=== PATIENT | female | born 1955 | race Caucasian/White ===

== ENCOUNTER 2018-01-29 02:33 | Observation (INO) | payer MEDICARE, OTHER ==
[2018-01-29] MEDS ORDERED: ASPIRIN 81 MG PO STA (02:40)
[2018-01-29] MEDS ORDERED: SODIUM CHLORIDE 0.9% 1,000 ML IV STA (02:40)
[2018-01-29] MEDS ORDERED: ONDANSETRON 4 MG/2 ML VIAL IVP STA (02:40)
[2018-01-29] MEDS ORDERED: NITROGLYCERIN OINT 1 INCH/GM PACKET TOPICAL STA (02:40)
[2018-01-29 03:13] LABS: Basophils % (A) 0 %; Eosinophils # (A) 0.4 k/uL (0-0.7); Eosinophils % (A) 4 %; HCT 42.3 % (34.0-46.0); HGB 13.9 gm/dL (11.4-16.0); Lymphocytes % (A) 23 %; MCH 29.6 pg (25.0-35.0); MCHC 32.9 g/dL (31.0-37.0); MCV 89.7 fL (80.0-100.0); Monocytes # (A) 0.6 k/uL (0-1.0); Monocytes % (A) 6 %; Neutrophils # (A) 5.7 k/uL (1.3-7.7); Neutrophils % (A) 64 %; Platelet Count 153 k/uL (150-450); RBC 4.71 m/uL (3.80-5.40); RDW 13.8 % (11.5-15.5); WBC 8.9 k/uL (3.8-10.6)
--- NOTE | 2018-01-29 03:27 | ED ---
Chest Pain HPI - General Chief Complaint: Chest Pain Stated Complaint: chest pain Time Seen by Provider: 01/29/18 02:35 Source: patient Mode of arrival: EMS Limitations: no limitations - History of Present Illness Initial Comments: 62 years old female presenting with a chest pressure for last 24 hours she is also complaining about she is short-winded and no chest pain gets worse with deep breaths, denies any fever no chills she is not coughing up a bunch of phlegm denies any history of heart disease or any stents stents in place in the past. Denies any headaches no neck stiffness no fever mom has a chest pressure no abdominal pain no frequency or dysuria dysuria no symptoms of TIA or CVA - Related Data Home Medications Medication Instructions Recorded Confirmed ARIPiprazole [Abilify] 5 mg PO HS 01/29/18 01/29/18 Aspirin EC [Ecotrin Low Dose] 81 mg PO DAILY 01/29/18 01/29/18 Cetirizine HCl [Cetirizine HCl] 10 mg PO DAILY 01/29/18 01/29/18 Cyanocobalamin (Vitamin B-12) 1,000 mcg PO DAILY 01/29/18 01/29/18 [Vitamin B-12] Ferrous Sulfate [Iron] 325 mg PO DAILY 01/29/18 01/29/18 Furosemide [Lasix] 20 mg PO TID 01/29/18 01/29/18 Levothyroxine Sodium 88 mcg PO DAILY 01/29/18 01/29/18 Lisinopril [Zestril] 5 mg PO DAILY 01/29/18 01/29/18 Ranitidine HCl 150 mg PO BID 01/29/18 01/29/18 fluvoxaMINE MALEATE [Fluvoxamine 100 mg PO BID 01/29/18 01/29/18 Maleate] metFORMIN HCL [Glucophage] 500 mg PO BID 01/29/18 01/29/18 Allergies Allergy/AdvReac Type Severity Reaction Status Date / Time clindamycin Allergy Rash/Hives Verified 01/29/18 03:07 nickel AdvReac Rash/Hives Verified 01/29/18 03:08 propoxyphene [From Darvon] AdvReac Unknown Verified 01/29/18 03:08 amprin AdvReac Unknown Uncoded 01/29/18 03:09 Review of Systems ROS Statement: Those systems with pertinent positive or pertinent negative responses have been documented in the HPI. ROS Other: All systems not noted in ROS Statement are negative. Past Medical History Past Medical History: No Reported History History of Any Multi-Drug Resistant Organisms: None Reported Past Surgical History: Cholecystectomy, Orthopedic Surgery, Tonsillectomy Additional Past Surgical History / Comment(s): bilat wrist surgery, bilat knee surgery Past Psychological History: No Psychological Hx Reported Smoking Status: Former smoker Past Alcohol Use History: None Reported Past Drug Use History: None Reported General Exam - General Exam Comments Initial Comments: General: The patient is awake and alert, in no distress, and does not appear acutely ill. Skin: Skin is warm and dry and no rashes or lesions are noted. Eye: Pupils are equal, round and reactive to light, extra-ocular movements are intact; there is normal conjunctiva bilaterally. Ears, nose, mouth and throat: There are moist mucous membranes and no oral lesions. Neck: The neck is supple, there is no tenderness or JVD. Cardiovascular: There is a regular rate and rhythm. No murmur, rub or gallop is appreciated. Respiratory: To auscultation bilateral, no wheezing no rhonchi no distress respiratory orta noticed Gastrointestinal: Soft, non-distended, non-tender abdomen without masses or organomegaly noted. There is no rebound or guarding present. Bowel sounds are unremarkable. Back: There is no tenderness to palpation in the midline. There is no obvious deformity. Musculoskeletal: Normal ROM, no tenderness, There is no pedal edema. There is no calf tenderness or swelling. No cords were appreciated. Neurological: CN II-XII intact, Cranial nerves III through XII are intact. There are no obvious motor or sensory deficits. Coordination appears grossly intact. Speech is normal. Psychiatric: Cooperative, appropriate mood & affect, normal judgment. Limitations: no limitations Course Vital Signs 01/29/18 02:35 Temperature 97.5 F L Pulse Rate 79 Respiratory 18 Rate Blood Pressure 123/71 O2 Sat by Pulse 98 Oximetry EKG is sinus rhythm with a premature atrial complexes ventricular rate is 88, PA interval is 180 QRS duration is 82 QT/QTC 364/440 and 50 mL EKG does not reveal any ST elevation or ST depression She is reassessed at term 4 AM, noticed CBC is unremarkable creatinine is bit elevated 1.20 troponin chest x-ray are reviewed chest x-ray reveals some cardiomegaly d-dimer is quite elevated this is a candidate for CT angiogram considering her creatinine is 1.20 chest pressure is still persisting abdomen quiet and hospitalize her will do a VQ scan and patient would have Dr. Umana is her cover seamer will consult him all go ahead and heparinize her and said she still has chest pressure, she agrees with the hospital or admission plan Disposition Clinical Impression: Chest pressure, Elevated d-dimer, Renal insufficiency Disposition: ADMITTED IP TO THIS HOSP Condition: Good Referrals: Nonstaff,Physician [Primary Care Provider] - 1-2 days
[2018-01-29 03:28] LABS: Albumin 4.1 g/dL (3.5-5.0); Calcium 9.9 mg/dL (8.4-10.2); Total Bilirubin 0.5 mg/dL (0.2-1.3); Total Protein 7.8 g/dL (6.3-8.2)
[2018-01-29 03:32] LABS: Creatine Kinase 84 U/L (30-135); Potassium 4.3 mmol/L (3.5-5.1)
[2018-01-29 03:39] LABS: D-Dimer 1.54 mg/L FEU (<0.60); Partial Thromboplastin Time 18.6 sec (22.0-30.0); Prothrombin Time 9.9 sec (9.0-12.0)
[2018-01-29 03:45] LABS: Creatine Kinase MB 0.5 ng/mL (0.0-2.4); Troponin I <0.012 ng/mL (0.000-0.034)
--- NOTE | 2018-01-29 03:53 | XR ---
EXAM: XR Chest, 2 Views CLINICAL HISTORY: Chest Pain TECHNIQUE: Frontal and lateral views of the chest. COMPARISON: February 24, 2013. FINDINGS: Prominent cardiac silhouette no evidence of failure or edema. No lung volumes. No focal consolidative process or pleural effusions. Degenerative changes in thoracic spine. IMPRESSION: Enlarged cardiac silhouette without evidence of failure or edema. No focal consolidative process.
[2018-01-29] MEDS ORDERED: MORPHINE SULFATE 4 MG/ML SYRINGE IV PRN (04:40)
[2018-01-29] MEDS ORDERED: HEPARIN SODIUM,PORCINE 5,000 UNIT/ML 1 ML VIAL IV ONE (04:40)
[2018-01-29] MEDS ORDERED: NITROGLYCERIN SL TABS 0.4 MG TAB SUBLINGUAL PRN (04:40)
[2018-01-29] MEDS ORDERED: HEPARIN SOD,PORK IN 0.45% NACL 25,000 UNIT in 0.45% NACL 1 500ML.BAG IV SCH (04:45)
[2018-01-29] MEDS: ASPIRIN 81 MG PO SCH (08:57)
[2018-01-29] MEDS: FERROUS SULFATE 325 MG TAB PO SCH (08:57)
[2018-01-29] MEDS: CYANOCOBALAMIN 500 MCG TAB PO SCH (08:57)
[2018-01-29] MEDS: LEVOTHYROXINE 88 MCG TAB PO SCH (08:57)
[2018-01-29] MEDS: metFORMIN 500 MG TAB PO SCH ×2 (08:57→20:48)
[2018-01-29] MEDS: FUROSEMIDE 20 MG TAB PO SCH ×2 (08:57→18:23)
[2018-01-29] MEDS: LISINOPRIL 5 MG TAB PO SCH (08:58)
[2018-01-29] MEDS: LORATADINE 10 MG TAB PO SCH (08:58)
[2018-01-29] MEDS ORDERED: FAMOTIDINE 20 MG TAB PO SCH (09:00)
[2018-01-29 11:09] LABS: Creatine Kinase 70 U/L (30-135)
[2018-01-29 11:21] LABS: Creatine Kinase MB 0.6 ng/mL (0.0-2.4); Troponin I <0.012 ng/mL (0.000-0.034)
--- NOTE | 2018-01-29 11:47 | NM ---
EXAMINATION TYPE: NM pul vent and perfuse DATE OF EXAM: 01/29/2018 COMPARISON: Chest x-ray 01/29/2018 HISTORY: Chest pain TECHNIQUE: Utilizing inhalation of 67.1 mCi Tc 99m DTPA aerosol and intravenous injection of 5.08 mC i of Tc 99m MAA, ventilation and perfusion images are acquired post injection in multiple projections . FINDINGS: There is a tiny matched defect within the left lung. No mismatch defects seen. IMPRESSION: Low probability for pulmonary embolism. Correlate with CTA as clinically warranted.
[2018-01-29] MEDS ORDERED: HEPARIN SODIUM,PORCINE 5,000 UNIT/ML 1 ML VIAL IV STA (14:23)
[2018-01-29] MEDS ORDERED: MAG HYDROX/AL HYDROX/SIMETH 30 ML CUP PO STA (14:35)
--- NOTE | 2018-01-29 14:43 | P.CRDCN ---
History of Present Illness Consult date: 01/29/18 Consult reason: chest pain History of present illness: Mrs. Celestin is a pleasant 62-year-old female past medical history significant for diabetes mellitus, hypertension, hypothyroid, gastroesophageal reflux disease and morbid obesity. She denies history of coronary artery disease and denies ever seeing a corporation pilot for any reason. We have been asked to see her in consultation for complaints of chest pain. She states the pain started late Saturday night with an extreme burning in the epigastric/mid- sternal region associated with mild nausea. The pain was persistent and strong lasting approximately 12 hours. She took Tums at home with little to no relief. She states the only thing that makes the pain better is belching and the pain is worse when she lays flat or when you press on the area. At the time of my exam she is seen resting comfortably in the hallway in the emergency department with ongoing discomfort in the epigastric region. She denies associated shortness of breath, dizziness, palpitations, vomiting or diaphoresis. No nitroglycerin sublingual was given but she was given IV Zofran she states after that she started to feel better. EKG on arrival reveals sinus mechanism with PACs. Chest x-ray is negative for acute cardiopulmonary process no evidence of heart failure with cardiomegaly. VQ scan shows low probability for pulmonary embolism with a tiny match defect within the left lung. CTA recommended. Laboratory data reviewed, hemoglobin 13.9, platelets 153, d-dimer 1.54, potassium 4.3 creatinine 1.2, magnesium 2.0, cardiac enzymes negative 2. Current cardiac medications include aspirin 81 mg daily, lisinopril 5 mg daily, Lasix 10 mg 3 times a day. Review of Systems At the time my exam: CONSTITUTIONAL: Denies fever. Denies chills. EYES: Denies blurred vision. Denies vision changes. Denies eye pain. EARS, NOSE, MOUTH & THROAT: Denies headache. Denies sore throat. Denies ear pain. CARDIOVASCULAR: Complains of ongoing midsternal epigastric pain/burning. Denies shortness of breath. Denies orthopnea. Denies PND. Denies palpitations. RESPIRATORY: Denies cough. GASTROINTESTINAL: Denies abdominal pain. Denies diarrhea. Denies constipation. Denies nausea. Denies vomiting. MUSCULOSKELETAL: Denies myalgias. INTEGUMENTARY: Denies pruitis. Denies rash. NEUROLOGIC: Denies numbness. Denies tingling. Denies weakness. PSYCHIATRIC: Denies anxiety. Denies depression. ENDOCRINE: Denies fatigue. Denies weight change. Denies polydipsia. Denies polyurina. GENITOURINARY: Denies burning, hematuria or urgency with micturation. HEMATOLOGIC: Denies history of anemia. Denies bleeding. Past Medical History Past Medical History: No Reported History History of Any Multi-Drug Resistant Organisms: None Reported Past Surgical History: Cholecystectomy, Orthopedic Surgery, Tonsillectomy Additional Past Surgical History / Comment(s): bilat wrist surgery, bilat knee surgery Past Psychological History: No Psychological Hx Reported Smoking Status: Former smoker Past Alcohol Use History: None Reported Past Drug Use History: None Reported Medications and Allergies Home Medications Medication Instructions Recorded Confirmed Type ARIPiprazole [Abilify] 5 mg PO HS 01/29/18 01/29/18 History Albuterol Inhaler [Ventolin Hfa 1 - 2 puff INHALATION RT-Q6H PRN 01/29/18 History Inhaler] Aspirin EC [Ecotrin Low Dose] 81 mg PO DAILY 01/29/18 01/29/18 History Cetirizine HCl [Cetirizine HCl] 10 mg PO DAILY 01/29/18 01/29/18 History Cholecalciferol [Vitamin D3] 5,000 unit PO DAILY 01/29/18 01/29/18 History Cyanocobalamin (Vitamin B-12) 1,000 mcg PO DAILY 01/29/18 01/29/18 History [Vitamin B-12] Ferrous Sulfate [Iron] 325 mg PO DAILY 01/29/18 01/29/18 History Furosemide [Lasix] 10 mg PO TID 01/29/18 01/29/18 History Levothyroxine Sodium 88 mcg PO DAILY 01/29/18 01/29/18 History Lisinopril [Zestril] 5 mg PO DAILY 01/29/18 01/29/18 History Ranitidine HCl 150 mg PO BID 01/29/18 01/29/18 History fluvoxaMINE MALEATE [Fluvoxamine 100 mg PO BID 01/29/18 01/29/18 History Maleate] metFORMIN HCL [Glucophage] 250 mg PO BID 01/29/18 01/29/18 History Allergies Allergy/AdvReac Type Severity Reaction Status Date / Time clindamycin Allergy Rash/Hives Verified 01/29/18 08:11 nickel AdvReac Rash/Hives Verified 01/29/18 08:11 propoxyphene [From Darvon] AdvReac Unknown Verified 01/29/18 08:11 amprin AdvReac Unknown Uncoded 01/29/18 08:11 Physical Exam Vitals: Vital Signs Temp Pulse Resp BP Pulse Ox 01/29/18 05:45 65 18 100/59 96 01/29/18 02:35 97.5 F L 79 18 123/71 98 Intake and Output 01/28/18 01/29/18 01/29/18 22:59 06:59 14:59 Intake Total 168.168 Balance 168.168 Intake: Intake, IV Titration 168.168 Amount Heparin Sod,Pork in 0.45% 168.168 NaCl 25,000 unit In 0.45 % NaCl 1 500ml.bag @ 7.72 UNITS/KG/HR 20.02 mls/hr IV .Q24H [facility] Rx#: [id number] Other: Weight 129.727 kg Blood pressure 147/74 heart rate 74 afebrile maintaining oxygen saturations on nasal cannula GENERAL: This is a 62-year-old occasion female in no apparent distress at the time of my examination. Morbidly obese HEENT: Head is atraumatic, normocephalic. Pupils are equal, round. Sclerae anicteric. Conjunctivae are clear. Mucous membranes of the mouth are moist. Neck is supple. There is no jugular venous distention. No carotid bruit is heard. LUNGS: Clear to auscultation no wheezes, rales or rhonchi. Positive mid sternal epigastric chest wall tenderness is noted on palpation, not with deep breathing. Diminished. HEART: Regular rate and rhythm without murmurs, rubs or gallops. S1 and S2 heard. ABDOMEN: Soft, nontender. Bowel sounds are heard. No organomegaly noted. EXTREMITIES: No evidence of peripheral edema and no calf tenderness noted. VASCULAR: Radial and dorsalis pedis pulses palpated, no evidence of clubbing. NEUROLOGIC: Patient is awake, alert and oriented x3. Results 01/29/18 03:00 01/29/18 03:00 Cardiac Enzymes 01/29/18 01/29/18 01/29/18 Range/Units 03:00 03:00 10:19 AST 26 (14-36) U/L CK-MB (CK-2) 0.5 0.6 (0.0-2.4) ng/mL Troponin I <0.012 <0.012 (0.000-0.034) ng/mL Coagulation 01/29/18 01/29/18 Range/Units 03:00 12:31 PT 9.9 (9.0-12.0) sec APTT 18.6 L 29.5 (22.0-30.0) sec CBC 01/29/18 Range/Units 03:00 WBC 8.9 (3.8-10.6) k/uL RBC 4.71 (3.80-5.40) m/uL Hgb 13.9 (11.4-16.0) gm/dL Hct 42.3 (34.0-46.0) % Plt Count 153 (150-450) k/uL Comprehensive Metabolic Panel 01/29/18 Range/Units 03:00 Sodium 139 (137-145) mmol/L Potassium 4.3 (3.5-5.1) mmol/L Chloride 100 (98-107) mmol/L Carbon Dioxide 30 (22-30) mmol/L BUN 20 H (7-17) mg/dL Creatinine 1.20 H (0.52-1.04) mg/dL Glucose 148 H (74-99) mg/dL Calcium 9.9 (8.4-10.2) mg/dL AST 26 (14-36) U/L ALT 22 (9-52) U/L Alkaline Phosphatase 139 H (38-126) U/L Total Protein 7.8 (6.3-8.2) g/dL Albumin 4.1 (3.5-5.0) g/dL Current Medications Generic Name Dose Route Start Last Admin Trade Name Freq PRN Reason Stop Dose Admin Aripiprazole 5 mg 01/29/18 21:00 Abilify PO HS [facility] Aspirin 325 mg 01/30/18 09:00 01/29/18 08:57 Aspirin PO 325 mg DAILY [facility] Administration Aspirin 81 mg 01/29/18 09:00 01/29/18 08:57 Aspirin PO 81 mg DAILY [facility] Administration Cyanocobalamin 1,000 mcg 01/29/18 09:00 01/29/18 08:57 Vitamin B-12 PO 1,000 mcg DAILY [facility] Administration Famotidine 20 mg 01/30/18 09:00 Pepcid PO DAILY [facility] Ferrous Sulfate 325 mg 01/29/18 09:00 01/29/18 08:57 Feosol PO 325 mg DAILY [facility] Administration Fluvoxamine Maleate 100 mg 01/29/18 09:00 01/29/18 08:57 Luvox PO 100 mg BID [facility] Administration Furosemide 20 mg 01/29/18 09:00 01/29/18 08:57 Lasix PO 20 mg TID [facility] Administration Heparin Sodium/Sodium Chloride 500 mls @ 20.02 mls/hr 01/29/18 04:45 14:19 25,000 unit/ Sodium Chloride IV 10.72 units/kg/hr .Q24H [facility] 27.81 mls/hr Protocol Titration 7.72 UNITS/KG/HR Levothyroxine Sodium 88 mcg 01/29/18 09:00 01/29/18 08:57 Synthroid PO 88 mcg DAILY [facility] Administration Lisinopril 5 mg 01/29/18 09:00 01/29/18 08:58 Zestril PO 5 mg DAILY [facility] Administration Loratadine 10 mg 01/29/18 09:00 01/29/18 08:58 Claritin PO 10 mg DAILY [facility] Administration Metformin HCl 500 mg 01/29/18 09:00 01/29/18 08:57 Glucophage PO 500 mg BID [facility] Administration Morphine Sulfate 4 mg 01/29/18 04:40 Morphine Sulfate (Inj) IV Q5M PRN Chest Pain Nitroglycerin 0.4 mg 01/29/18 04:40 Nitrostat SUBLINGUAL Q5M PRN Chest Pain Intake and Output 01/28/18 01/29/18 01/29/18 22:59 06:59 14:59 Intake Total 168.168 Balance 168.168 Intake: Intake, IV Titration 168.168 Amount Heparin Sod,Pork in 0.45% 168.168 NaCl 25,000 unit In 0.45 % NaCl 1 500ml.bag @ 7.72 UNITS/KG/HR 20.02 mls/hr IV .Q24H [facility] Rx#: [id number] Other: Weight 129.727 kg 01/29/18 03:00 01/29/18 03:00 Assessment and Plan Assessment: ASSESSMENT 1. Chest pain, atypical. No EKG evidence of ischemia and cardiac enzymes negative 2. 2. Reproducible epigastric pain may be related to gastroesophageal reflux disease. 3. Hypertension 4. Morbid obesity 5. Diabetes mellitus PLAN Give one dose of Maalox now. Obtain 2-D echocardiogram and Doppler study to assess cardiac structure and function. Continue to obtain serial cardiac enzymes. Troponin is negative on the third set heparin infusion can be discontinued. We will consider proceeding with a Lexiscan stress test in the morning once pulmonary embolism has been ruled out from primary medical team. Thank you kindly for this consultation. Nurse Practitioner note has been reviewed, I agree with a documented findings and plan of care. Patient was seen and examined.
[2018-01-29] MEDS ORDERED: MORPHINE ORAL SOLN 10 MG/5 ML CUP PO PRN (15:19)
[2018-01-29 16:40] LABS: Creatine Kinase 81 U/L (30-135)
[2018-01-29 16:53] LABS: Creatine Kinase MB 0.6 ng/mL (0.0-2.4); Troponin I <0.012 ng/mL (0.000-0.034)
[2018-01-29 19:55] VITALS: RESP 16
--- NOTE | 2018-01-29 20:47 | HP ---
HISTORY AND PHYSICAL CHIEF COMPLAINTS: Chest pain and shortness of breath. HISTORY OF PRESENT ILLNESS: This 62-year-old woman with a past medical history of multiple medical problems, including cholecystectomy, DJD, history of wrist surgery, knee surgery, being followed by [facility] in the outpatient setting, was admitted with complaints of chest pain which is more like gas pains, according to her, and also shortness of breath. The patient was evaluated. Initial troponins were negative. Patient also had a high D- dimer and V/Q scan was low probability. There is no history of any fever, rigor or chills. No history of headache, loss of consciousness, seizures. PAST MEDICAL HISTORY: 1. History of DJD. 2. History of tonsillectomy. 3. Wrist surgery. HOME MEDICATIONS: 1. Lasix 10 mg p.o. Saturday, Saturday, Saturday. 2. Ecotrin 81 mg daily. 3. Albuterol 1 to 2 puffs q.6 p.r.n. 4. Glucophage 250 mg p.o. b.i.d. 5. Fluvoxamine 100 mg p.o. b.i.d. 6. Ranitidine 150 mg p.o. b.i.d. 7. Zestril 5 mg p.o. daily. 8. Levothyroxine 88 mcg p.o. daily. 9. Iron sulfate 1 p.o. daily. 10.Vitamin B12 1000 mcg p.o. daily. 11.Vitamin D3 5000 daily. 12.Cetirizine 10 mg daily. 13.Abilify 5 mg at bedtime. ALLERGIES: 1. CLINDAMYCIN. 2. NICKEL. 3. PROPOXYPHENE. 4. AMPRIN. FAMILY HISTORY: No history of heart disease or strokes in the family. SOCIAL HISTORY: Previous history of smoking. No current smoking or alcohol intake. REVIEW OF SYSTEMS: ENT: No diminished hearing. No diminished vision. CARDIOVASCULAR SYSTEM: As mentioned earlier. RESPIRATORY SYSTEM: As mentioned earlier. GI: No nausea, vomiting. : No dysuria or retention. NERVOUS SYSTEM: No numbness, weakness. ALLERGY/IMMUNOLOGY: No asthma, hayfever. MUSCULOSKELETAL: As mentioned earlier. HEMATOLOGY/ONCOLOGY: No history of anemia. ENDOCRINE: Hypothyroidism. CONSTITUTIONAL: As mentioned earlier. DERMATOLOGY: Negative. RHEUMATOLOGY: Negative. PSYCHIATRY: As mentioned earlier. PHYSICAL EXAMINATION: Alert and oriented x3. Pulse 65, blood pressure 90/55, respiration 17, temperature 97.7, pulse ox 96% on 2 L. HEENT: Conjunctivae normal. Oral mucosa moist. NECK: No jugular venous distention. No carotid bruit. No lymph node enlargement. CARDIOVASCULAR SYSTEM: S1, S2 muffled. No S3. No S4. RESPIRATORY SYSTEM: Breath sounds diminished at the bases. A few scattered rhonchi. No crackles. ABDOMEN: Soft, obese, nontender. No mass palpable. LEGS: No edema. No swelling. NERVOUS SYSTEM: Higher functions as mentioned earlier. Moves all 4 limbs. No focal motor or sensory deficit. LYMPHATICS: No lymph node palpable in neck, axillae or groin. SKIN: No ulcer, rash, bleeding. LABS AT THIS TIME: CBC within normal limits. D-dimer is 1.54. Creatinine is 1.20. ASSESSMENT: 1. Chest pain for evaluation. Rule out coronary artery disease. 2. Increased D-dimer with no evidence of pulmonary embolism. 3. Increased creatinine and chronic kidney disease, stage III. 4. Morbid obesity with a body mass index of 51.2. 5. Cholecystectomy. 6. Degenerative joint disease. 7. History of bilateral wrist surgery. 8. Diabetes mellitus, type 2. 9. History of asthma. 10.Hypothyroidism. RECOMMENDATIONS AND DISCUSSION: In this 62-year-old woman with a past medical history of multiple medical problems, at this time we will monitor the patient closely, continue the current medications, continue with symptomatic treatment. Otherwise at this time I would recommend continuing the current medications. Rule out myocardial infarction. Cardiology consultation, possible stress test. Continue to monitor. I would also recommend a 2D echo as well as NTproBNP. Further recommendations to follow. Will repeat the labs tomorrow. MMODL / IJN: [id number] /
[2018-01-29] MEDS ORDERED: ARIPiprazole 5 MG TAB PO SCH (21:00)
--- NOTE | 2018-01-29 22:26 | CONS ---
CONSULTATION REASON FOR CONSULT: Renal failure. DATE OF CONSULTATION: 01/29/2018. HISTORY OF PRESENT ILLNESS: Patient is a 62-year-old female who was admitted to the hospital with complaints of chest pain and chest pressure which occurred at night while she was getting ready to go to bed. The patient denies any significant shortness of breath. No fever, chills, nausea, vomiting, abdominal pain. She states that she has been seen at the office previously, but has not followed up recently. Her creatinine on admission is 1.2 mg/dL. Review of previous labs shows a creatinine of 0.95 in 2013. PAST MEDICAL HISTORY: Obesity, hypertension, hypothyroidism, type 2 diabetes. PAST SURGICAL HISTORY: Cholecystectomy, tonsillectomy, and knee surgery. SOCIAL HISTORY: Patient is a former smoker. No history of drug abuse or alcohol abuse. ALLERGIES: Include clindamycin, Darvon, nickel, Empirin. MEDICATIONS: Medications at home included Abilify, aspirin, Cirtrazine, iron, Lasix, Synthroid, Zestril, ranitidine, Glucophage. PHYSICAL EXAMINATION: Patient is currently comfortable, awake. She is not in any acute distress. Blood pressure is 100/58, heart rate 69 per minute. Patient is afebrile. Examination of the heart S1, S2. Examination of the lungs bilateral breath sounds are heard. Abdomen is soft, nontender. Examination of the lower extremities shows chronic skin changes. No significant edema is noted. PACKAGER HEAD exam is grossly intact. LAB: Show sodium 139, potassium 4.3, BUN 20, serum creatinine 1.2, hemoglobin 13.9 g/dL, albumin 4.1, troponins are negative. UA is not available. ASSESSMENT: 1. Acute kidney injury, possibly prerenal currently patient is maintained on IV fluids. Her blood pressure is on the lower side. She is currently on a very low dose of lisinopril, which we can continue for now and repeat labs in a.m. The patient has also already received IV fluids. We can maintain her off of IV fluids for now. May continue with Glucophage. 2. Rule out chronic kidney disease. Check urinalysis. Continue with the NAHED inhibitors. Will check office records as well. 3. Type 2 diabetes, maintained on Glucophage which we can continue. 4. Chest pains with negative troponins. The heparin has been discontinued. PLAN: Repeat labs in a.m. May continue current dose of Zestril. Check urinalysis. Thank you for this consultation. We will continue to follow the patient with you during her hospitalization. MASOOD / MAURA: [id number] /
[2018-01-29 23:00] LABS: Appearance,Urine Clear (Clear); Bilirubin,Urine Negative (Negative); Blood,Urine Moderate (Negative); Color,Urine Yellow; Glucose,Urine (UA) Negative (Negative); Ketones,Urine Negative (Negative); Leukocyte Esterase,Urine Small (Negative); Mucus,Urine Rare /hpf; Nitrite,Urine Negative (Negative); PH, Urine 6.5 (5.0-8.0); Protein,Urine Negative (Negative); RBC,Urine 5 /hpf (0-5); Specific Gravity,Urine 1.016 (1.001-1.035); Squamous Epithelial Cell,Urine <1 /hpf (0-4); Urobilinogen,Urine <2.0 mg/dL (<2.0); WBC,Urine 11 /hpf (0-5)
[2018-01-30 06:45] LABS: Basophils % (A) 0 %; Eosinophils # (A) 0.4 k/uL (0-0.7); Eosinophils % (A) 5 %; HCT 40.6 % (34.0-46.0); HGB 13.6 gm/dL (11.4-16.0); Lymphocytes # (A) 1.4 k/uL (1.0-4.8); Lymphocytes % (A) 20 %; MCH 29.9 pg (25.0-35.0); MCHC 33.6 g/dL (31.0-37.0); MCV 88.9 fL (80.0-100.0); Mean Platelet Volume 8.4; Monocytes # (A) 0.4 k/uL (0-1.0); Monocytes % (A) 6 %; Neutrophils # (A) 4.7 k/uL (1.3-7.7); Neutrophils % (A) 65 %; Platelet Count 178 k/uL (150-450); RBC 4.56 m/uL (3.80-5.40); RDW 13.6 % (11.5-15.5); WBC 7.1 k/uL (3.8-10.6)
[2018-01-30 06:57] LABS: Calcium 9.2 mg/dL (8.4-10.2); Potassium 4.1 mmol/L (3.5-5.1)
[2018-01-30] MEDS ORDERED: AMINOPHYLLINE 500 MG/20 ML VIAL IV PRN (07:40)
[2018-01-30] MEDS ORDERED: REGADENOSON 0.4 MG/5 ML SYRINGE IV ONE (07:40)
[2018-01-30 07:41] LABS: Glucose,Whole Blood 100 mg/dL (75-99)
[2018-01-30] MEDS ORDERED: DOBUTamine DRIP for NUC MED 250 MG in DEXTROSE/WATER 1 250ML.BAG IV ONE (07:42)
[2018-01-30] MEDS ORDERED: ASPIRIN 325 MG TAB PO SCH (09:00)
[2018-01-30] MEDS ORDERED: FAMOTIDINE 20 MG TAB PO SCH (09:00)
[2018-01-30] MEDS ORDERED: MAG HYDROX/AL HYDROX/SIMETH 30 ML CUP PO PRN (09:02)
[2018-01-30] MEDS: metFORMIN 500 MG TAB PO SCH (11:15)
[2018-01-30] MEDS: LORATADINE 10 MG TAB PO SCH (11:18)
[2018-01-30] MEDS: FERROUS SULFATE 325 MG TAB PO SCH (11:18)
[2018-01-30] MEDS: CYANOCOBALAMIN 500 MCG TAB PO SCH (11:18)
[2018-01-30] MEDS: LISINOPRIL 5 MG TAB PO SCH (11:18)
[2018-01-30] MEDS: LEVOTHYROXINE 88 MCG TAB PO SCH (11:18)
[2018-01-30] MEDS: ASPIRIN 81 MG PO SCH (11:18)
[2018-01-30 12:08] LABS: Glucose,Whole Blood 132 mg/dL (75-99)
[2018-01-30 12:11] VITALS: TEMP 98
--- NOTE | 2018-01-30 12:34 | ECHOF ---
Referral Reason:cp MEASUREMENTS -------- HEIGHT: 157.5 cm WEIGHT: 129.7 kg BP: 147/74 RVIDd: 2.8 cm (< 3.3) IVSd: 1.0 cm (0.6 - 1.1) LVIDd: 5.4 cm (3.9 - 5.3) LVPWd: 1.1 cm (0.6 - 1.1) IVSs: 1.4 cm LVIDs: 4.1 cm LVPWs: 1.5 cm LA Diam: 2.7 cm (2.7 - 3.8) Ao Diam: 3.0 cm (2.0 - 3.7) AV Cusp: 1.6 cm (1.5 - 2.6) LA Diam: 2.8 cm (2.7 - 3.8) EPSS: 0.1 cm MV E Shmuel: 0.64 m/s MV DecT: 302 ms MV A Shmuel: 0.59 m/s MV E/A Ratio: 1.09 RAP: 5.00 mmHg RVSP: 11.72 mmHg MV EF SLOPE: 96.26 mm/s (70 - 150) MV EXCURSION: 1.91 cm (> 18.000) FINDINGS -------- Sinus rhythm. This was a technically difficult study with suboptimal views. Off axis a picals due to skin tears an d open sores. The left ventricle is mildly dilated. There is mild concentric left ventricular hypertrophy. Over all left ventricular systolic function is normal with, an EF between 55 - 60 %. The right ventricle is mild to moderately enlarged. The left atrial size is normal. The right atrium was not well visualized. 3ml of Lumason was utilized for enhancement of images. Aortic valve is trileaflet and is mildly thickened. Trace amount of aortic regurgitation. There is no evidence of aortic stenosis. The mitral valve leaflets are mildly thickened. There is trace to mild mitral regurgitation. Trace tricuspid regurgitation present. Right ventricular systolic pressure is normal at < 35 mmHg. There is no evidence of pulmonary hypertension. Trace/mild (physiologic) pulmonic regurgitation. The aortic root size is normal. IVC Not well visulized. Echo free space indicative of a pericardial fat pad. CONCLUSIONS -------- 1. Sinus rhythm. 2. This was a technically difficult study with suboptimal views. 3. Off axis apicals due to skin tears and open sores. 4. The left ventricle is mildly dilated. 5. There is mild concentric left ventricular hypertrophy. 6. Overall left ventricular systolic function is normal with, an EF between 55 - 60 %. 7. The right ventricle is mild to moderately enlarged. 8. The left atrial size is normal. 9. The right atrium was not well visualized. 10. 3ml of Lumason was utilized for enhancement of images. 11. Aortic valve is trileaflet and is mildly thickened. 12. Trace amount of aortic regurgitation. 13. The mitral valve leaflets are mildly thickened. 14. There is trace to mild mitral regurgitation. 15. Trace tricuspid regurgitation present. 16. Right ventricular systolic pressure is normal at < 35 mmHg. 17. There is no evidence of pulmonary hypertension. 18. Trace/mild (physiologic) pulmonic regurgitation. 19. The aortic root size is normal. 20. IVC Not well visulized. 21. Echo free space indicative of a pericardial fat pad. GENETIC SCIENTIST: Mukul Watkins RDCS
--- NOTE | 2018-01-30 14:52 | P.PN ---
Subjective Progress Note Date: 01/30/18 mrs. Celestin is seen and examined today resting in bed. She states the Maalox yesterday really helped her symptoms. Echocardiogram reveals preserved left ventricular systolic function with ejection fraction 55-60%, mild concentric left ventricular hypertrophy, mildly thickened aortic valve, trace to mild MR and trace TR. Cardiac enzymes are negative x3. Objective - Vital Signs Vital signs: Vital Signs Temp 98 F 01/30/18 12:00 Pulse 75 01/30/18 12:00 Resp 16 01/30/18 12:00 BP 107/59 01/30/18 12:00 Pulse Ox 93 L 01/30/18 12:00 Intake & Output 01/29/18 01/30/18 01/30/18 18:59 06:59 18:59 Intake Total 408.168 240 Balance 408.168 240 Weight 126.9 kg Intake: Intake, IV Titration 168.168 Amount Heparin Sod,Pork in 0.45% 168.168 NaCl 25,000 unit In 0.45 % NaCl 1 500ml.bag @ 7.72 UNITS/KG/HR 20.02 mls/hr IV .Q24H [facility] Rx#: [id number] Oral 240 240 Other: Voiding Method Toilet Toilet # Voids 1 1 - Exam Blood pressure 114/59 heart rate 65 afebrile maintaining oxygen saturation on room air GENERAL: Well-appearing, well-nourished and in no acute distress. Obese. NECK: Supple without JVD or thyromegaly. LUNGS: Breath sounds clear to auscultation bilaterally. Respiration equal and unlabored. No wheezes, rales or rhonchi. Diminished. HEART: Regular rate and rhythm without murmurs, rubs or gallops. S1 and S2 heard. EXTREMITIES: Normal range of motion, no edema. No clubbing or cyanosis. Peripheral pulses intact and strong. - Labs CBC & Chem 7: 01/30/18 06:30 01/30/18 06:30 Labs: Abnormal Lab Results - Last 24 Hours (Table) 01/29/18 01/30/18 01/30/18 Range/Units 21:52 06:30 07:38 Carbon Dioxide 33 H (22-30) mmol/L Creatinine 1.15 H (0.52-1.04) mg/dL Glucose 108 H (74-99) mg/dL POC Glucose (mg/dL) 100 H (75-99) mg/dL Urine Blood Moderate H (Negative) Ur Leukocyte Esterase Small H (Negative) Urine WBC 11 H (0-5) /hpf Urine Mucus Rare H (None) /hpf 01/30/18 Range/Units 12:01 Carbon Dioxide (22-30) mmol/L Creatinine (0.52-1.04) mg/dL Glucose (74-99) mg/dL POC Glucose (mg/dL) 132 H (75-99) mg/dL Urine Blood (Negative) Ur Leukocyte Esterase (Negative) Urine WBC (0-5) /hpf Urine Mucus (None) /hpf Assessment and Plan Assessment: ASSESSMENT 1. Chest pain, atypical. No EKG evidence of ischemia and cardiac enzymes negative 2. 2. Reproducible epigastric pain may be related to gastroesophageal reflux disease. 3. Hypertension 4. Morbid obesity 5. Diabetes mellitus PLAN Proceed with dobutamine stress echocardiogram to assess for stress induced cardiac ischemia. If this is normal she is stable from a cardiac perspective. Follow up with Dr. Jacobo in 2-3 weeks. Nurse Practitioner note has been reviewed, I agree with a documented findings and plan of care. Patient was seen and examined.
[2018-01-30 15:37] VITALS: BP 97/52; PULSE 68
[2018-01-30 22:07] LABS: Hemoglobin A1C 6.7 % (4.0-6.0)
--- NOTE | 2018-01-30 22:09 | DS ---
DISCHARGE SUMMARY DATE OF SERVICE: 01/30/2018 FINAL DIAGNOSES: 1. Chest pain, possibly musculoskeletal; negative stress test. 2. Increased D-dimer with no evidence of pulmonary embolism. 3. Increased creatinine with chronic kidney disease, stage III. 4. Cellulitis of the breast area. 5. Morbid obesity with a body mass index of 51.2. 6. Cholecystectomy. 7. History of degenerative joint disease. 8. History of bariatric surgery. 9. Diabetes mellitus, type 2. 10.History of asthma. 11.Hypothyroidism. DISCHARGE DISPOSITION: The patient will be discharged in stable condition with guarded prognosis. Cardiology cleared the patient for discharge. HISTORY OF PRESENT ILLNESS: This 62-year-old woman with a past medical history of multiple medical problems, presented with chest pain. Myocardial infarction was ruled out. Cardiology performed a stress test which did not show any reversible ischemia and the dobutamine stress echo was negative. A 2D echo was also performed by Cardiology which showed ejection fraction about 55% to 60%. Overall patient made significant improvement. On exam, vitals are stable. CARDIOVASCULAR SYSTEM: S1, S2 muffled. ABDOMEN: Soft. NERVOUS SYSTEM: No focal deficit. SKIN: Minimal rash present on the chest area. DISCHARGE ADVICE AND MEDICATIONS: 1. Diet is cardiac. 2. Activity limited until followup. 3. Follow up with Dr. Gunderson in 2 to 3 days. 4. Follow up with Cardiology as recommended. 5. Ventolin 1 to 2 puffs q.6 p.r.n. 6. Abilify 5 mg at bedtime. 7. Ecotrin 81 mg daily. 8. Cetirizine 10 mg p.o. daily. 9. Vitamin D3 5000 daily. 10.Vitamin B12 1000 mcg daily. 11.Iron 325 mg p.o. daily. 12.Fluvoxamine 100 mg p.o. b.i.d. 13.Lasix 10 mg p.o. Saturday, Saturday, Saturday. 14.Levaquin 500 mg p.o. daily for 5 days. 15.Levothyroxine 88 mcg p.o. daily. 16.Zestril 5 mg p.o. daily. 17.Glucophage 500 mg p.o. b.i.d. 18.Ranitidine 150 mg p.o. b.i.d. Once again, the patient will be discharged in stable condition with guarded prognosis. MMODL / IJN: [id number] /
--- NOTE | 2018-02-03 17:27 | ECHOS ---
- Stress Test Note Stress Test Results/Findings: Exam Performed: dobutamine stress echo Exam Date: 01/30/18 Reason for Exam: CHEST PAIN Height: 5 ft 2 in Weight: 126.9 kg Protocol: DSE Stage: 4 Duration of Exercise: 9:30 Resting Heart Rate: 74 Resting Blood Pressure: 126/65 Maximum Achieved Heart Rate: 142 Maximum Achieved Blood Pressure: 156/66 85% PMHR: 136 100% PMHR: 160 METS: NA Technologist Comment: Stress Test Results/Findings: This is a 62-year-old female who was admitted to the hospital with chest pain and shortness of breath and is being evaluated for cardiac status. Baseline echo images showed normal NV interval, QRS duration and sinus rhythm. A standard dose of dobutamine was initiated 10 mics and was titrated to 30 mics, achieving a maximum heart rate of 142 with a blood pressure of 156/66. EKGs taken during exercise with dobutamine showed mild ST-T abnormalities in the inferior lateral leads which are not diagnostic for ischemia. Patient had mild ectopy. Echo data. This study is done with contrast. Baseline echo images show normal wall motion and thickening. Exercise echo images at low dose and high dose dobutamine showed progressive augmentation of wall motion and thickening in all the segments. Final impression: #1. Negative stress test with dobutamine. #2. Negative dobutamine stress echo with contrast. JESSICAD
== END 2018-01-30 17:40 | disposition home or self-care (01) ==
LOC: EC 02:33 → 3OBS 04:41
PROVIDERS: ADMIT Hospitalist; ATTEND Hospitalist
DX: R07.89 Other chest pain (principal); R79.89 Other specified abnormal findings of blood chemistry; N18.3 Chronic kidney disease, stage 3 (moderate); E11.22 Type 2 diabetes mellitus with diabetic chronic kidney disease; I12.9 Hypertensive chronic kidney disease with stage 1 through stage 4 chronic kidney disease, or unspecified chronic kidney disease; Z68.43 Body mass index [BMI] 50.0-59.9, adult; E66.01 Morbid (severe) obesity due to excess calories; M19.90 Unspecified osteoarthritis, unspecified site; E03.9 Hypothyroidism, unspecified; J45.909 Unspecified asthma, uncomplicated; Z98.84 Bariatric surgery status; Z90.49 Acquired absence of other specified parts of digestive tract; N61.0 Mastitis without abscess; R06.02 Shortness of breath; Z79.899 Other long term (current) drug therapy; Z79.82 Long term (current) use of aspirin; Z79.84 Long term (current) use of oral hypoglycemic drugs; Z88.1 Allergy status to other antibiotic agents; Z88.5 Allergy status to narcotic agent; Z91.048 Other nonmedicinal substance allergy status; Z87.891 Personal history of nicotine dependence; K21.9 Gastro-esophageal reflux disease without esophagitis; R11.0 Nausea; R10.13 Epigastric pain; N17.9 Acute kidney failure, unspecified
CPT/HCPCS: 96365 ×2; 96366 ×12; 96375 ×2; 96376 ×3; 99285; 96361 ×3; 36415; 93005; 93017; 85379; 83880; 80061; 80053; 80048; 82550; 82553; 83735; 84484; 85025 ×2; 85610; 85730; 81001; 83036; 71046; 78582; G0378 ×2; C8928; C8929; A9540; A9567; J1644 ×2; J2405; Q9950 ×2; J1250; 93306; 93350

== ENCOUNTER 2018-10-19 12:40 | Emergency (ER) | payer MEDICARE, OTHER ==
[2018-10-19 13:03] VITALS: BP 125/77; PULSE 77; RESP 20; TEMP 97.7
[2018-10-19] MEDS ORDERED: HYDROcodone/APAP 5-325MG 1 EACH TAB PO STA (13:19)
--- NOTE | 2018-10-19 13:21 | ED ---
General Adult HPI - General Chief complaint: Extremity Injury, Lower Stated complaint: Rt knee numbness Source: patient Mode of arrival: wheelchair Limitations: no limitations - History of Present Illness Initial comments: Dictation was produced using [employer] dictation software. please excuse any grammatical, word or spelling errors. Chief Complaint: 62-year-old female with past medical history of total knee replacement presents with knee pain. History of Present Illness: [id number] female past medical history of total knee replacement presents with knee pain. She states she's been walking more than usual in an attempt to lose weight. She woke this morning with severe right-sided knee pain. Patient had knee surgery several years ago. She does not like her current orthopedic surgeon. Patient denies any fever, chills or night sweats per she is able to bear weight and ambulate however walks with a limp. The ROS documented in this emergency department record has been reviewed and confirmed by me. Those systems with pertinent positive or negative responses have been documented in the HPI. All other systems are other negative and/or noncontributory. - Related Data Home Medications Medication Instructions Recorded Confirmed ARIPiprazole [Abilify] 5 mg PO HS 01/29/18 01/29/18 Albuterol Inhaler [Ventolin Hfa 1 - 2 puff INHALATION RT-Q6H PRN 01/29/18 Inhaler] Aspirin EC [Ecotrin Low Dose] 81 mg PO DAILY 01/29/18 01/29/18 Cetirizine HCl 10 mg PO DAILY 01/29/18 01/29/18 Cholecalciferol [Vitamin D3] 5,000 unit PO DAILY 01/29/18 01/29/18 Cyanocobalamin (Vitamin B-12) 1,000 mcg PO DAILY 01/29/18 01/29/18 [Vitamin B-12] Ferrous Sulfate [Iron] 325 mg PO DAILY 01/29/18 01/29/18 Furosemide [Lasix] 10 mg PO MOWEFR 01/29/18 01/29/18 Levothyroxine Sodium 88 mcg PO DAILY 01/29/18 01/29/18 Lisinopril [Zestril] 5 mg PO DAILY 01/29/18 01/29/18 Ranitidine HCl 150 mg PO BID 01/29/18 01/29/18 fluvoxaMINE MALEATE [Fluvoxamine 100 mg PO BID 01/29/18 01/29/18 Maleate] Previous Rx's Medication Instructions Recorded Levofloxacin [Levaquin] 500 mg PO DAILY 3 Days #5 tab 01/30/18 metFORMIN HCL [Glucophage] 500 mg PO BID #0 01/30/18 HYDROcodone/APAP 5-325MG [[place] 1 tab PO Q6HR PRN 3 Days #12 tab 10/19/18 5-325] Allergies Allergy/AdvReac Type Severity Reaction Status Date / Time clindamycin Allergy Rash/Hives Verified 10/19/18 13:03 nickel AdvReac Rash/Hives Verified 10/19/18 13:03 propoxyphene [From Darvon] AdvReac Unknown Verified 10/19/18 13:03 amprin AdvReac Unknown Uncoded 10/19/18 13:03 Review of Systems ROS Statement: Those systems with pertinent positive or pertinent negative responses have been documented in the HPI. ROS Other: All systems not noted in ROS Statement are negative. Past Medical History Past Medical History: GERD/Reflux, Pneumonia, Thyroid Disorder Additional Past Medical History / Comment(s): pt stated told her she was boarderline diabetic takes metformin but no bs checks,arthritis, chronic lower back pain, murmur, varicose veins, diverticulosis, constipation, yeast infection under breasts and abd fold also wound rt breast and scabbed areas lt breast, sinus/seasonal allergies, hepatis b,umb hernia, petic ulcer disease, leakage of urine. 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 clausterphobia Past Psychological History: Anxiety, Bipolar, Depression Smoking Status: Never smoker Past Alcohol Use History: None Reported Past Drug Use History: None Reported - Past Family History Father Family Medical History: Cancer Additional Family Medical History / Comment(s): colon cancer Mother Family Medical History: Cancer, Myocardial Infarction ([place]) Additional Family Medical History / Comment(s): lung cancer General Exam - General Exam Comments Initial Comments: PHYSICAL EXAM: General Impression: Alert and oriented x3, not in acute distress HEENT: Normocephalic atraumatic, extra-ocular movements intact, pupils equal and reactive to light bilaterally, mucous membranes moist. Cardiovascular: Heart regular rate and rhythm, S1&S2 audible, no murmurs, rubs or gallops Chest: Lungs clear to auscultation bilaterally, no rhonchi, no wheeze, no rales Abdomen: Bowel sounds present, abdomen soft, non-tender, non-distended, no organomegaly Musculoskeletal: Pulses present and equal in all extremities, no peripheral edema Motor: Power 5/5 bilaterally, no focal deficits noted Neurological: CN II-XII grossly intact, no focal motor or sensory deficits noted Skin: Intact with no visualized rashes Psych: Normal affect and mood Lower extremity: Pain with hip abduction. Tenderness to palpation over the right lateral knee. There is also palpable tenderness along the lateral thigh. Limitations: no limitations Course Vital Signs 10/19/18 13:01 Temperature 97.7 F Pulse Rate 77 Respiratory 20 Rate Blood Pressure 125/77 O2 Sat by Pulse 99 Oximetry Medical Decision Making - Medical Decision Making ED course: Her old female with past medical history of knee replacement presents with right-sided knee pain. Vital signs upon arrival are within acceptable limits. Patient does not appear to have clinical presentation to suggest septic arthritis. Knee x-rays and hip x-rays performed. Patient given 1 tablet of [place]. Patient likely has tensor fascia lisseth strain. X-ray is unremarkable. There are some findings of bone spurring in the hip. Patient given [place] with improved symptoms. Patient be given prescription for [place] when necessary severe pain. Patient is encouraged to continue ambulating. Patient otherwise can take [id number] Motrin or Tylenol for symptoms. Disposition Clinical Impression: Knee pain Disposition: HOME SELF-CARE Condition: Good Instructions: Knee Sprain (ED) Prescriptions: HYDROcodone/APAP 5-325MG [[place] 5-325] 1 tab PO Q6HR PRN 3 Days #12 tab PRN Reason: Severe Pain Is patient prescribed a controlled substance at d/c from ED?: No Referrals: [facility] [Primary Care Provider] - 1-2 days Time of Disposition: 14:16
--- NOTE | 2018-10-19 14:05 | XR ---
EXAMINATION TYPE: XR knee complete RT DATE OF EXAM: 10/19/2018 COMPARISON: 03/02/2013 HISTORY: Pain TECHNIQUE: 3 views FINDINGS: There is a right knee prosthesis. Components appear in anatomic position. There is small kn ee joint effusion. There is calcification above the patella consistent with degenerative changes or s ynovial chondromatosis. I see no fracture. IMPRESSION: No fracture seen.
--- NOTE | 2018-10-19 14:06 | XR ---
EXAMINATION TYPE: XR Hip Limited RT DATE OF EXAM: 10/19/2018 COMPARISON: NONE HISTORY: Hip pain TECHNIQUE: Single view FINDINGS: Right hip appears intact. I see no fracture nor dislocation. There is mild acetabular spurr ing. Hip joint space is fairly well-maintained. Sacroiliac joint is intact. IMPRESSION: Minimal spurring. No fracture seen.
== END 2018-10-19 14:35 | disposition home or self-care (01) ==
LOC: EC 12:40
DX: M25.561 Pain in right knee (principal); M76.891 Other specified enthesopathies of right lower limb, excluding foot; K21.9 Gastro-esophageal reflux disease without esophagitis; E07.9 Disorder of thyroid, unspecified; M19.90 Unspecified osteoarthritis, unspecified site; F31.9 Bipolar disorder, unspecified; Z86.14 Personal history of Methicillin resistant Staphylococcus aureus infection; Z96.653 Presence of artificial knee joint, bilateral; Z79.82 Long term (current) use of aspirin; Z98.890 Other specified postprocedural states; Z79.899 Other long term (current) drug therapy; Z88.1 Allergy status to other antibiotic agents; Z91.048 Other nonmedicinal substance allergy status; Z88.5 Allergy status to narcotic agent; Z88.6 Allergy status to analgesic agent
CPT/HCPCS: 73501; 99283

== ENCOUNTER → 2024-04-10 | Outpatient (CLI) | payer MEDICARE, OTHER ==
--- NOTE | 2024-04-10 15:32 | US ---
EXAMINATION TYPE: US kidneys/renal and bladder DATE OF EXAM: 04/10/2024 COMPARISON: 06/19/2011 CLINICAL INDICATION: Female, 68 years old with history of Z87.440 PERSONAL HISTORY OF URINARY (TRACT) INFECT; EXAM MEASUREMENTS: Right Kidney: 9.0 x 5.3 x 4.6 cm Left Kidney: 9.5 x 4.9 x 4.9 cm Difficult and limited study due to patient body habitus Right Kidney: 1.6cm cystic area lateral superior pole Left Kidney: no hydronephrosis or masses seen Bladder: not distended IMPRESSION: 1. Right renal cyst
== END | disposition home or self-care (01) ==
LOC: RADUSWWP 14:05
PROVIDERS: ATTEND Internal Medicine
DX: N28.1 Cyst of kidney, acquired (principal); Z87.440 Personal history of urinary (tract) infections
CPT/HCPCS: 76770

== ENCOUNTER 2024-04-25 10:27 | Emergency (ER) | payer MEDICARE, OTHER ==
--- NOTE | 2024-04-25 11:07 | ED ---
General Adult HPI - General Chief complaint: Extremity Problem,Nontraumatic Stated complaint: Bladder infection toes swelling Time Seen by Provider: 04/25/24 10:45 Source: patient, RN notes reviewed, old records reviewed Mode of arrival: ambulatory Limitations: no limitations - History of Present Illness Initial comments: This is a 68-year-old female who comes in complaining that her toes have been swollen for couple months. Patient states is her right third and fourth toe and her left second toe. Patient states she is seeing a foot doctor and he is put on medication but it has not helped. Patient also comes in because she is complaining of urinary tract infection she has a little bit of dysuria and she thinks her urine is a little cloudy. Patient denies any abdominal pain. Patient has any fever or chills. Patient denies any recent injury of the toes. Patient states she has had x-rays in the past she thinks but she is not sure. - Related Data Home Medications Medication Instructions Recorded Confirmed ARIPiprazole [Abilify] 5 mg PO HS 01/29/18 01/29/18 Albuterol Inhaler [Ventolin Hfa 1 - 2 puff INHALATION RT-Q6H PRN 01/29/18 01/29/18 Inhaler] Aspirin EC [Ecotrin Low Dose] 81 mg PO DAILY 01/29/18 01/29/18 Cetirizine HCl 10 mg PO DAILY 01/29/18 01/29/18 Cholecalciferol [Vitamin D3 (25 5,000 unit PO DAILY 01/29/18 01/29/18 Mcg = 1000 Iu)] Cyanocobalamin (Vitamin B-12) 1,000 mcg PO DAILY 01/29/18 01/29/18 [Vitamin B-12] Ferrous Sulfate [Iron] 325 mg PO DAILY 01/29/18 01/29/18 Furosemide [Lasix] 10 mg PO MOWEFR 01/29/18 01/29/18 Levothyroxine Sodium 88 mcg PO DAILY 01/29/18 01/29/18 fluvoxaMINE MALEATE [Luvox] 100 mg PO BID 01/29/18 01/29/18 lisinopriL [Zestril] 5 mg PO DAILY 01/29/18 01/29/18 raNITIdine HCL [Zantac] 150 mg PO BID 01/29/18 01/29/18 Previous Rx's Medication Instructions Recorded Levofloxacin [Levaquin] 500 mg PO DAILY 3 Days #5 tab 01/30/18 metFORMIN HCL [Glucophage] 500 mg PO BID #0 01/30/18 HYDROcodone/APAP 5-325MG [[place] 1 tab PO Q6HR PRN 3 Days #12 tab 10/19/18 5-325] Nitrofurantoin Monohyd/M-Cryst 100 mg PO Q12HR #14 cap 04/25/24 [Macrobid] Allergies Allergy/AdvReac Type Severity Reaction Status Date / Time clindamycin Allergy Rash/Hives Verified 04/25/24 10:42 nickel AdvReac Rash/Hives Verified 04/25/24 10:42 propoxyphene [From Darvon] AdvReac Unknown Verified 04/25/24 10:42 amprin AdvReac Unknown Uncoded 04/25/24 10:42 Review of Systems ROS Statement: Those systems with pertinent positive or pertinent negative responses have been documented in the HPI. ROS Other: All systems not noted in ROS Statement are negative. Past Medical History Past Medical History: Diabetes Mellitus, GERD/Reflux, Pneumonia, Thyroid D isorder Additional Past Medical History / Comment(s): pt stated told her she was boarderline diabetic takes metformin but no bs checks,arthritis, chronic lower back pain, murmur, varicose veins, diverticulosis, constipation, yeast infection under breasts and abd fold also wound rt breast and scabbed areas lt breast, sinus/seasonal allergies, hepatis b,umb hernia, petic ulcer disease, leakage of urine. 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 clausterphobia Past Psychological History: Anxiety, Bipolar, Depression Past Alcohol Use History: None Reported Past Drug Use History: None Reported - Past Family History Father Family Medical History: Cancer Additional Family Medical History / Comment(s): colon cancer Mother Family Medical History: Cancer, Myocardial Infarction ([place]) Additional Family Medical History / Comment(s): lung cancer General Exam - General Exam Comments Initial Comments: GENERAL Patient is well-developed and well-nourished. Patient is in mild distress. EYES Patient's pupils are equal and round. Extraocular motion is intact SKIN Unremarkable NEURO The patient is alert and oriented A&Ox3 PYSCH Patient has normal interpersonal interactions. MUSCULOSKELETAL Toes patient has a mildly swollen fourth toe on the right foot and second toe on the left foot. Toes do not look infected they do look mildly swollen and she states they both hurt when you touch them. ABDOMEN Abdomen is nontender. Limitations: no limitations Course Vital Signs 04/25/24 10:39 Temperature 97.7 F Pulse Rate 100 Respiratory 20 Rate Blood Pressure 120/72 O2 Sat by Pulse 98 Oximetry Medical Decision Making - Medical Decision Making Was pt. sent in by a medical professional or institution (Dr. PA, FRAMING MANAGER, urgent care, hospital, or prison...) When possible be specific @ -No Did you speak to anyone other than the patient for history (EMS, parent, family, police, friend...)? What history was obtained from this source @ -No Did you review nursing and triage notes (agree or disagree)? Why? @ -I reviewed and agree with nursing and triage notes Were old charts reviewed (outside hosp., previous admission, EMS record, old EKG, old radiological studies, urgent care reports/EKG's, prison records)? Report findings @ -No old charts were reviewed Differential Diagnosis (chest pain, altered mental status, abdominal pain women, abdominal pain men, vaginal bleeding, weakness, fever, dyspnea, syncope, hea dache, dizziness, GI bleed, back pain, seizure, CVA, palpatations, mental health, musculoskeletal)? @ -Urinary tract infection, hemorrhagic cystitis, pyelonephritis, fractured toes this is not an all-inclusive list EKG interpreted by me (3pts min.). @ -As above X-rays interpreted by me (1pt min.). @ -X-ray of the toe showed no acute abnormality there is some mild swelling to the right fourth toe and left second toe CT interpreted by me (1pt min.). @ -None done U/S interpreted by me (1pt. min.). @ -None done What testing was considered but not performed or refused? (CT, X-rays, U/S, labs)? Why? @ -None What meds were considered but not given or refused? Why? @ -None Did you discuss the management of the patient with other professionals (professionals i.e. Dr., PA, FRAMING MANAGER, lab, RT, psych nurse, social media director, medical apparatus model maker, teacher, corporate ethics officer, case preparer and liner)? Give summary @ -No Was smoking cessation discussed for >3mins.? @ -No Was critical care preformed (if so, how long)? @ -No Were there social determinants of health that impacted care today? How? (Homelessness, low income, unemployed, alcoholism, drug addiction, transportation, low edu. Level, literacy, decrease access to med. care, penitentiary, rehab)? @ -No Was there de-escalation of care discussed even if they declined (Discuss DNR or withdrawal of care, Hospice)? DNR status @ -No What co-morbidities impacted this encounter? (DM, HTN, Smoking, COPD, CAD, Cancer, CVA, ARF, Chemo, Hep., AIDS, mental health diagnosis, sleep apnea, morbid obesity)? @ -None Was patient admitted / discharged? Hospital course, mention meds given and route , prescriptions, significant lab abnormalities, going to OR and other pertinent info. @ -Patient was given Rocephin in the emergency department and will be treated with as an outpatient with antibiotics. Patient is to continue following up with the print producer for her swollen toes Undiagnosed new problem with uncertain prognosis? @ -No Drug Therapy requiring intensive monitoring for toxicity (Heparin, Nitro, Insulin, Cardizem)? @ -No Were any procedures done? @ -No Diagnosis/symptom? @ -Urinary tract Acute, or Chronic, or Acute on Chronic? @ -Acute Uncomplicated (without systemic symptoms) or Complicated (systemic symptoms)? @ -Complicated Side effects of treatment? @ -No Exacerbation, Progression, or Severe Exacerbation? @ -No Poses a threat to life or bodily function? How? (Chest pain, [place], [place], pneumonia, PE, COPD, DKA, ARF, appy, cholecystitis, CVA, Diverticulitis, Homicidal, Suicidal, threat to staff... and all critical care pts) @ -No Diagnosis/symptom? @ -Chronic swollen toes Acute, or Chronic, or Acute on Chronic? @ -Default Uncomplicated (without systemic symptoms) or Complicated (systemic symptoms)? @ -Uncomplicated Side effects of treatment? @ -None Exacerbation, Progression, or Severe Exacerbation] @ -No Poses a threat to life or bodily function? @ -No - Lab Data Lab Results 04/25/24 Range/Units 11:10 Urine Color Light Yellow Urine Appearance Turbid H (Clear) Urine pH 6.0 (5.0-8.0) Ur Specific [place] 1.018 (1.001-1.035) Urine Protein 1+ H (Negative) Urine Glucose (UA) Negative (Negative) Urine Ketones Negative (Negative) Urine Blood Moderate H (Negative) Urine Nitrite Negative (Negative) Urine Bilirubin Negative (Negative) Urine Urobilinogen <2.0 (<2.0) mg/dL Ur Leukocyte Esterase Large H (Negative) Urine RBC 14 H (0-5) /hpf Urine WBC >182 H (0-5) /hpf Urine WBC Clumps Many H (None) /hpf Urine Bacteria Rare H (None) /hpf Disposition Clinical Impression: Urinary tract infection, Localized swelling of toe of both feet Disposition: HOME SELF-CARE Condition: Good Instructions (If sedation given, give patient instructions): Urinary Tract Infection in Women (ED) Prescriptions: Nitrofurantoin Monohyd/M-Cryst [Macrobid] 100 mg PO Q12HR #14 cap Is patient prescribed a controlled substance at d/c from ED?: No Referrals: Gordo Rose MD [Primary Care Provider] - 1-2 days Time of Disposition: 12:39
[2024-04-25 11:31] LABS: Appearance,Urine Turbid (Clear); Bacteria,Urine Rare /hpf; Bilirubin,Urine Negative (Negative); Blood,Urine Moderate (Negative); Color,Urine Light Yellow; Glucose,Urine (UA) Negative (Negative); Ketones,Urine Negative (Negative); Leukocyte Esterase,Urine Large (Negative); Nitrite,Urine Negative (Negative); Protein,Urine 1+ (Negative); RBC,Urine 14 /hpf (0-5); Specific Gravity,Urine 1.018 (1.001-1.035); Urobilinogen,Urine <2.0 mg/dL (<2.0); WBC,Urine >182 /hpf (0-5)
--- NOTE | 2024-04-25 11:38 | XR ---
EXAMINATION TYPE: XR toes bilateral DATE OF EXAM: 04/25/2024 11:24 AM CLINICAL INDICATION:Female, 68 years old with history of Swelling; COMPARISON: None TECHNIQUE: XR toes bilateral examined in the AP, oblique, and lateral projections. FINDINGS: No evidence of any acute osseous pathology. Mild soft tissue swelling of the fourth digit on the righ t first and second digits on the left. Multifocal degeneration changes throughout the joints of the f oot with osteophyte formation and joint space narrowing. No evidence for osseous erosion. IMPRESSION: 1. No evidence for osseous erosion. Mild soft tissue swelling involving the fourth digit on the righ t and the first and second digits on the left. 2. No evidence of acute fracture. 3. Multifocal degeneration changes throughout the joints of the foot.
[2024-04-25] MEDS: cefTRIAXone 1,000 MG VIAL (IM USE) IM STA (11:48)
[2024-04-25 12:55] VITALS: BP 122/81; PULSE 77; RESP 18; TEMP 98
== END 2024-04-25 12:54 | disposition home or self-care (01) ==
LOC: EC 10:27
DX: N39.0 Urinary tract infection, site not specified (principal); R22.43 Localized swelling, mass and lump, lower limb, bilateral; Z88.1 Allergy status to other antibiotic agents; Z88.5 Allergy status to narcotic agent; Z88.6 Allergy status to analgesic agent; Z91.048 Other nonmedicinal substance allergy status
CPT/HCPCS: 81001; 73660; 99284; 96372; J0696

== ENCOUNTER 2024-05-11 14:08 | Inpatient (IN) | payer MEDICARE, OTHER ==
--- NOTE | 2024-05-11 14:44 | ED ---
General Adult HPI - General Chief complaint: Urogenital Stated complaint: uti Time Seen by Provider: 05/11/24 14:10 Source: patient, RN/MD, EMS, RN notes reviewed Mode of arrival: EMS Limitations: no limitations - History of Present Illness Initial comments: Patient is a 68-year-old female presenting to the emergency department as a transfer from [facility]. Patient had recent UTI. Patient was not feeling well today. Patient seen there and found to have UTI with worsening renal function. CT scan concerning for kidney stone. Patient is a poor historian. Chart reviewed. - Related Data Home Medications Medication Instructions Recorded Confirmed ARIPiprazole [Abilify] 5 mg PO HS 01/29/18 01/29/18 Albuterol Inhaler [Ventolin Hfa 1 - 2 puff INHALATION RT-Q6H PRN 01/29/18 01/29/18 Inhaler] Aspirin EC [Ecotrin Low Dose] 81 mg PO DAILY 01/29/18 01/29/18 Cetirizine HCl 10 mg PO DAILY 01/29/18 01/29/18 Cholecalciferol [Vitamin D3 (25 5,000 unit PO DAILY 01/29/18 01/29/18 Mcg = 1000 Iu)] Cyanocobalamin (Vitamin B-12) 1,000 mcg PO DAILY 01/29/18 01/29/18 [Vitamin B-12] Ferrous Sulfate [Iron] 325 mg PO DAILY 01/29/18 01/29/18 Furosemide [Lasix] 10 mg PO MOWEFR 01/29/18 01/29/18 Levothyroxine Sodium 88 mcg PO DAILY 01/29/18 01/29/18 fluvoxaMINE MALEATE [Luvox] 100 mg PO BID 01/29/18 01/29/18 lisinopriL [Zestril] 5 mg PO DAILY 01/29/18 01/29/18 raNITIdine HCL [Zantac] 150 mg PO BID 01/29/18 01/29/18 Previous Rx's Medication Instructions Recorded Levofloxacin [Levaquin] 500 mg PO DAILY 3 Days #5 tab 01/30/18 metFORMIN HCL [Glucophage] 500 mg PO BID #0 01/30/18 HYDROcodone/APAP 5-325MG [[place] 1 tab PO Q6HR PRN 3 Days #12 tab 10/19/18 5-325] Nitrofurantoin Monohyd/M-Cryst 100 mg PO Q12HR #14 cap 04/25/24 [Macrobid] Allergies Allergy/AdvReac Type Severity Reaction Status Date / Time clindamycin Allergy Rash/Hives Verified 05/11/24 14:19 nickel AdvReac Rash/Hives Verified 05/11/24 14:19 propoxyphene [From Darvon] AdvReac Unknown Verified 05/11/24 14:19 amprin AdvReac Unknown Uncoded 05/11/24 14:19 Review of Systems ROS Statement: Those systems with pertinent positive or pertinent negative responses have been documented in the HPI. ROS Other: All systems not noted in ROS Statement are negative. Constitutional: Denies: fever Eyes: Denies: eye pain ENT: Denies: ear pain Respiratory: Denies: dyspnea Cardiovascular: Denies: chest pain Endocrine: Reports: fatigue Gastrointestinal: Reports: as per HPI Past Medical History Past Medical History: Diabetes Mellitus, GERD/Reflux, Pneumonia, Thyroid Disorder Additional Past Medical History / Comment(s): pt stated told her she was boarderline diabetic takes metformin but no bs checks,arthritis, chronic lower back pain, murmur, varicose veins, diverticulosis, constipation, yeast infection under breasts and abd fold also wound rt breast and scabbed areas lt breast, sinus/seasonal allergies, hepatis b,umb hernia, petic ulcer disease, leakage of urine. 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 clausterphobia Past Psychological History: Anxiety, Bipolar, Depression Smoking Status: Never smoker Past Alcohol Use History: None Reported Past Drug Use History: None Reported - Past Family History Father Family Medical History: Cancer Additional Family Medical History / Comment(s): colon cancer Mother Family Medical History: Cancer, Myocardial Infarction ([place]) Additional Family Medical History / Comment(s): lung cancer General Exam General appearance: alert, in no apparent distress Head exam: Present: normocephalic ENT exam: Present: mucous membranes dry Neck exam: Present: normal inspection Respiratory exam: Present: normal lung sounds bilaterally Cardiovascular Exam: Present: regular rate, normal rhythm GI/Abdominal exam: Present: soft. Absent: tenderness Extremities exam: Present: normal inspection Neurological exam: Present: alert Expanded Motor strength exam: RUE: 4, LUE: 4, RLE: 4, LLE: 4 Psychiatric exam: Present: normal affect, normal mood Skin exam: Present: normal color Course Vital Signs 05/11/24 14:12 Temperature 97.9 F Pulse Rate 59 L Respiratory 20 Rate Blood Pressure 93/56 O2 Sat by Pulse 96 Oximetry EKG Findings - EKG Results: EKG: interpreted by DANIEL (Low QRS voltage), sinus rhythm, normal axis, normal ST/T Medical Decision Making - Medical Decision Making Was pt. sent in by a medical professional or institution (, PA, ENVIRONMENTAL HEALTH SAFETY ENGINEER, urgent care, hospital, or detention...) When possible be specific @ -Patient sent from [facility]. Patient was started on Rocephin and did have blood cultures and lactic acid done. Did you speak to anyone other than the patient for history (EMS, parent, family, police, friend...)? What history was obtained from this source @ -I did speak with transferring physician Dr. Arvizu Did you review nursing and triage notes (agree or disagree)? Why? @ -I reviewed and agree with nursing and triage notes Were old charts reviewed (outside hosp., previous admission, EMS record, old EKG, old radiological studies, urgent care reports/EKG's, detention records)? Report findings @ -Chart chart from [facility] was reviewed Differential Diagnosis (chest pain, altered mental status, abdominal pain women, abdominal pain men, vaginal bleeding, weakness, fever, dyspnea, syncope, headache, dizziness, GI bleed, back pain, seizure, CVA, palpatations, mental health, musculoskeletal)? @ -Differential Weakness: Hypoglycemia, shock, sepsis, hyponatremia, anemia, infection, [place], ETOH, adverse medicine reaction, overdose, stroke, this is not meant to be an all-inclusive list. EKG interpreted by me (3pts min.). @ -As above X-rays interpreted by me (1pt min.). @ -None done CT interpreted by me (1pt min.). @ -None done U/S interpreted by me (1pt. min.). @ -None done What testing was considered but not performed or refused? (CT, X-rays, U/S, labs)? Why? @ -None What meds were considered but not given or refused? Why? @ -None Did you discuss the management of the patient with other professionals (professionals i.e. DrJessica, PA, ENVIRONMENTAL HEALTH SAFETY ENGINEER, lab, RT, psych nurse, renal social worker, turbinated bone grinder, teacher, space officer, major case detective)? Give summary @ -Dr. Rose who will admit his patient. Case also discussed with Dr. Jarvis with urology who will consult. He does want cultures done. Blood cultures were done at [facility]. He will likely do stent. Was smoking cessation discussed for >3mins.? @ -No Was critical care preformed (if so, how long)? @ -No Were there social determinants of health that impacted care today? How? (Homelessness, low income, unemployed, alcoholism, drug addiction, transportation, low edu. Level, literacy, decrease access to med. care, [facility], rehab)? @ -No Was there de-escalation of care discussed even if they declined (Discuss DNR or withdrawal of care, Hospice)? DNR status @ -No What co-morbidities impacted this encounter? (DM, HTN, Smoking, COPD, CAD, Cancer, CVA, ARF, Chemo, Hep., AIDS, mental health diagnosis, sleep apnea, morbid obesity)? @ -None Was patient admitted / discharged? Hospital course, mention meds given and route, prescriptions, significant lab abnormalities, going to OR and other pertinent info. @ -Patient presents as transfer from [facility]. Patient has urinary tract infection with kidney stones and worsening renal function. Patient will be admitted with urology consult. Admission orders written. Undiagnosed new problem with uncertain prognosis? @ -No Drug Therapy requiring intensive monitoring for toxicity (Heparin, Nitro, Insulin, Cardizem)? @ -No Were any procedures done? @ -No Diagnosis/symptom? @ -Obstructive uropathy, UTI, acute kidney injury Acute, or Chronic, or Acute on Chronic? @ -Acute, acute, acute Uncomplicated (without systemic symptoms) or Complicated (systemic symptoms)? @ -Complicated with worsening renal function Side effects of treatment? @ -No Exacerbation, Progression, or Severe Exacerbation? @ -No Poses a threat to life or bodily function? How? (Chest pain, [place], [place], pneumonia, PE, COPD, DKA, ARF, appy, cholecystitis, CVA, Diverticulitis, Homicidal, Suicidal, threat to staff... and all critical care pts) @ -No Disposition Clinical Impression: Urinary tract infection, Obstructive uropathy, Acute kidney injury Disposition: ADMITTED IP TO THIS [facility] Condition: Serious Is patient prescribed a controlled substance at d/c from ED?: No Referrals: Gordo Rose MD [Primary Care Provider] - 1-2 days Time of Disposition: 14:44
[2024-05-11] MEDS ORDERED: HYDROmorphone 0.5 MG/0.5 ML SYRINGE IVP PRN (14:46)
[2024-05-11] MEDS ORDERED: NALOXONE 0.4 MG/ML 1 ML VIAL IV PRN (14:46)
[2024-05-11] MEDS: SODIUM CHLORIDE 0.9% 1,000 ML IV SCH (15:41)
[2024-05-11] MEDS ORDERED: PROPOFOL 10 MG/ML 20 ML VIAL IV ONE (16:52)
[2024-05-11] MEDS ORDERED: DEXAMETHASONE SOD PHOSPHATE 4 MG/ML 1 ML VIAL ONE (16:52)
[2024-05-11] MEDS ORDERED: PHENYLEPHRINE 10 MG/ML VIAL ONE (16:52)
[2024-05-11] MEDS ORDERED: ONDANSETRON 4 MG/2 ML VIAL ONE (16:52)
[2024-05-11] MEDS ORDERED: SUCCINYLCHOLINE CHLORIDE 200 MG/10 ML VIAL IV ONE (16:52)
[2024-05-11] MEDS ORDERED: LIDOCAINE 1% INJ 10MG/ML (20 ML MDV) ONE (16:52)
[2024-05-11] MEDS ORDERED: fentaNYL (PF) 50 MCG/ML 2 ML AMP ONE (16:52)
[2024-05-11] MEDS: IV FLUID CONTINUATION 950 ML IV ONE (16:55)
--- NOTE | 2024-05-11 17:00 | P.GSCN ---
History of Present Illness Consult date: 05/11/24 Reason for Consult: UTI, renal calculi Requesting physician: Gordo Rose History of present illness: The patient is a 68-year-old white female who has been treated for recurrent UTIs. She states that she has had multiple, persistent infections. The only culture performed at [facility] was in December 2023, showing an E. coli UTI. She denies any prior history of urolithiasis. She is a vague historian. She was seen at [facility] earlier today. CT scan showed bilateral renal pelvic/UPJ calculi measuring approximately 7 mm each, with associated bilateral mild hydronephrosis. She was transferred to [facility] for further management. Review of Systems - Constitutional Denies chills, Denies fever - Genitourinary Genitourinary: Reports dyspareunia, Reports flank pain, Reports kidney stones Past Medical History Past Medical History: Diabetes Mellitus, GERD/Reflux, Pneumonia, Thyroid Disorder Additional Past Medical History / Comment(s): pt stated told her she was boarderline diabetic takes metformin but no bs checks,arthritis, chronic lower back pain, murmur, varicose veins, diverticulosis, constipation, yeast infection under breasts and abd fold also wound rt breast and scabbed areas lt breast, sinus/seasonal allergies, hepatis b,umb hernia, petic ulcer disease, leakage of urine. 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 clausterphobia Past Psychological History: Anxiety, Bipolar, Depression Smoking Status: Never smoker Past Alcohol Use History: None Reported Past Drug Use History: None Reported - Past Family History Father Family Medical History: Cancer Additional Family Medical History / Comment(s): colon cancer Mother Family Medical History: Cancer, Myocardial Infarction ([place]) Additional Family Medical History / Comment(s): lung cancer Medications and Allergies Home Medications Medication Instructions Recorded Confirmed Type ARIPiprazole [Abilify] 5 mg PO HS 01/29/18 05/11/24 History Aspirin EC [Ecotrin Low Dose] 81 mg PO DAILY 01/29/18 05/11/24 History Cetirizine HCl 10 mg PO DAILY 01/29/18 05/11/24 History Ferrous Sulfate [Iron] 325 mg PO DAILY 01/29/18 05/11/24 History lisinopriL [Zestril] 5 mg PO DAILY 01/29/18 05/11/24 History Levothyroxine Sodium [Synthroid] 100 mcg PO DAILY 05/11/24 05/11/24 History Omeprazole 20 mg PO DAILY 05/11/24 05/11/24 History Pioglitazone [Actos] 30 mg PO DAILY 05/11/24 05/11/24 History Tirzepatide [Mounjaro] 2.5 mg SQ TH 05/11/24 05/11/24 History Venlafaxine HCl [Effexor XR] 150 mg PO DAILY 05/11/24 05/11/24 History Allergies Allergy/AdvReac Type Severity Reaction Status Date / Time clindamycin Allergy Rash/Hives Verified 05/11/24 16:13 nickel AdvReac Rash/Hives Verified 05/11/24 16:13 propoxyphene [From Darvon] AdvReac Unknown Verified 05/11/24 16:13 amprin AdvReac Unknown Uncoded 05/11/24 14:19 Surgical - Exam Vital Signs Temp Pulse Resp BP Pulse Ox 97.9 F 59 L 20 93/56 96 05/11/24 14:12 05/11/24 14:12 05/11/24 14:12 05/11/24 14:12 05/11/24 14:12 - General well developed, well nourished, moderate distress - Neck no masses, trachea midline - Respiratory normal respiratory effort - Abdomen Soft, non-distended, no mass. Mild right-sided tenderness, no guarding or rebound. - Psychiatric oriented to time, oriented to person, oriented to place, speech is normal, memory intact Results - Imaging CT scan - abdomen: report reviewed Assessment and Plan (1) Urinary tract infection Current Visit: Yes Status: Acute Code(s): N39.0 - URINARY TRACT INFECTION, SITE NOT SPECIFIED SNOMED Code(s): 45655615 (2) Hydronephrosis with renal and ureteral calculous obstruction Current Visit: Yes Status: Acute Code(s): N13.2 - HYDRONEPHROSIS WITH RENAL AND URETERAL CALCULOUS OBSTRUCTION SNOMED Code(s): 552407760 Plan: The patient has received Rocephin. Urine and blood cultures have been sent. I have advised the patient to undergo cystoscopy, bilateral retrograde pyelograms, bilateral ureteral stent insertion. The rationale for this was reviewed in detail with the patient, as were potential risks which include anesthesia, inability to place the stents, and ureteral injury. It was made clear to her that the purpose of the stents is to relieve obstruction and increase the likelihood that her infection will resolve. She understands that she will require a secondary procedure, either ESWL or ureteroscopy with laser lithotripsy. The patient appeared to understand everything discussed with her, though she is somewhat confused. The decision was made to proceed given the fact that it is felt to be medically necessary that this be done expediently. Time with Patient: Greater than 30
[2024-05-11] MEDS: IOPAMIDOL-370 100ML BTL MISCELLANE ONE (17:21)
--- NOTE | 2024-05-11 18:51 | P.OP ---
Date of Procedure: 05/11/24 Preoperative Diagnosis: Bilateral hydronephrosis, bilateral renal pelvic calculi Postoperative Diagnosis: Same, left pyonephrosis Procedure(s) Performed: Cystoscopy, bilateral retrograde pyelograms, bilateral ureteral stent insertion Anesthesia: SANTOA Surgeon: Rell Briceño Estimated Blood Loss (ml): 0 IV fluids (ml): 200 Pathology: none sent Condition: stable Disposition: PACU Indications for Procedure: The patient is a 68-year-old white female who has been treated for recurrent UTIs. She states that she has had multiple, persistent infections. The only culture performed at [facility] was in December 2023, showing an E. coli UTI. She denies any prior history of urolithiasis. She is a vague historian. She was seen at [facility] earlier today. CT scan showed bilateral renal pelvic/UPJ calculi measuring approximately 7 mm each, with associated bilateral mild hydronephrosis. An additional 7 mm right upper pole calculus was seen, along with a 3 mm left lower pole calculus. Operative Findings: Wide left ureteral orifice, suggestive of vesicoureteral reflux. Grossly purulent urine draining through the left ureteral orifice. Small radiolucent calculus is seen within the left renal pelvis as a filling defect. A larger radiolucent calculus is seen as a filling defect within the right renal pelvis. Description of Procedure: The patient was taken to the operating room and placed in the dorsolithotomy position, with legs supported in Zachary stirrups. The external genitalia was prepped and draped sterilely. The 30 lens was used to introduce the 22-[place] Stortz cystoscopic sheath through the urethra and into the bladder under direct vision. The urethra appeared normal. Urine within the bladder was extremely cloudy, requiring irrigation in order to be able to visualize the bladder. Ultimately, the bladder was examined in its entirety. The left ureteral orifice was gaping, consistent with vesicoureteral reflux. The right ureteral orifice was somewhat increased in size. Both were located normally within the trigone. Clear urine effluxed from the right ureteral orifice. Grossly purulent urine effluxed from the left ureteral orifice. No tumors or foreign bodies were seen. Using a 10 [place] cone-tip catheter, bilateral retrograde pyelograms were performed. The ureters were normal in course, possibly mildly increased in caliber, with no filling defects seen. Bilateral renal pelvic calculi were seen as filling defects, larger on the right. A 0.035 inch Glidewire was passed through the cystoscope. The right ureteral orifice was cannulated, and the Glidewire was slowly advanced up to the renal pelvis. A 24 cm, 6-[place] double- J ureteral stent was placed over the wire. Proper stent positioning was verified fluoroscopically and endoscopically. The same was then repeated on the contralateral side. The bladder was emptied and the cystoscope removed. The patient tolerated the procedure well and was taken to the recovery room in stable condition.
--- NOTE | 2024-05-11 20:44 | FL ---
EXAMINATION TYPE: FL urography retrograde Intraoperative/procedural fluoroscopic services were provid ed. Total fluoroscopy time is 45.6 seconds with a total of 7 submitted images to PACS. Please see the operative/procedural note for further details. DAP: 10.630 Gycm2
[2024-05-11 21:55] LABS: Glucose,Whole Blood 136 mg/dL (70-110)
[2024-05-11] MEDS: ARIPiprazole 5 MG TAB PO SCH (22:18)
[2024-05-12] MEDS: LEVOTHYROXINE 100 MCG TAB PO SCH (05:39)
[2024-05-12 05:46] LABS: Glucose,Whole Blood 123 mg/dL (70-110)
[2024-05-12] MEDS: LORATADINE 10 MG TAB PO SCH (08:32)
[2024-05-12] MEDS: PANTOPRAZOLE 40 MG TABLET PO SCH (08:32)
[2024-05-12] MEDS: PIOGLITAZONE 30 MG TAB PO SCH (08:32)
[2024-05-12] MEDS: lisinopriL 5 MG TAB PO SCH (08:32)
[2024-05-12] MEDS: ASPIRIN 81 MG PO SCH (08:32)
[2024-05-12] MEDS: VENLAFAXINE HCL ER 150 MG CAP PO SCH (08:32)
[2024-05-12] MEDS: FERROUS SULFATE 325 MG TAB PO SCH (08:32)
[2024-05-12] MEDS ORDERED: PANTOPRAZOLE 40 MG/10 ML VIAL IV SCH (09:00)
[2024-05-12 10:26] LABS: Basophils # (A) 0.02 X 10*3/uL (0.00-0.10); Basophils % (A) 0.2 %; Eosinophils # (A) 0 X 10*3/uL (0.04-0.35); Eosinophils % (A) 0 %; HCT 35.8 % (37.2-46.3); Lymphocytes # (A) 0.19 X 10*3/uL (0.90-5.00); Lymphocytes % (A) 1.8 %; MCH 27.8 pg (27.0-32.0); MCHC 30.7 g/dL (32.0-37.0); MCV 90.6 FL (80.0-97.0); Mean Platelet Volume 12.5 FL (9.5-12.2); Monocytes # (A) 0.25 X 10*3/uL (0.20-1.00); Monocytes % (A) 2.4 %; NRBC Per 100 WBC 0 X 10*3/uL (0.00-0.01); Neutrophils # (A) 9.99 X 10*3/uL (1.80-7.70); Neutrophils % (A) 94.4 %; Platelet Count 229 X 10*3/uL (140-440); RBC 3.95 X 10*6/uL (4.10-5.20); RDW 15.5 % (11.5-14.5); WBC 10.58 X 10*3/uL (4.50-10.00)
[2024-05-12 10:41] LABS: Magnesium 2.2 mg/dL (1.5-2.4); Phosphorus 5.5 mg/dL (2.4-5.1)
--- NOTE | 2024-05-12 10:50 | P.HPIM ---
History of Present Illness H&P Date: 05/11/24 Leisa Celestin, is a 68-year-old female who presented to [facility] emergency room with a chief complaint ofNot feeling well. Patient was a transfer from [facility] with concerns of UTI and worsening renal function CTA was also concerning for kidney stones She was evaluated in the emergency room vital examination on presentation revealedTemp 96.3, heart rate 78, blood pressure 91/61 with pulse ox 95% on room air Patient was admitted to medical floor for further evaluation and treatment. Urology service is consulted Past medical history is significant for Diabetes mellitus, GERD, pneumonia, thyroid disorder, peptic ulcer disease, anxiety bipolar depression Review of Systems Is referred HPI otherwise unremarkable Past Medical History Past Medical History: Diabetes Mellitus, GERD/Reflux, Pneumonia, Thyroid Disorder Additional Past Medical History / Comment(s): pt stated told her she was boarderline diabetic takes metformin but no bs checks,arthritis, chronic lower back pain, murmur, varicose veins, diverticulosis, constipation, yeast infection under breasts and abd fold also wound rt breast and scabbed areas lt breast, sinus/seasonal allergies, hepatis b,umb hernia, petic ulcer disease, leakage of urine. 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 clausterphobia Past Psychological History: Anxiety, Bipolar, Depression Smoking Status: Never smoker Past Alcohol Use History: None Reported Past Drug Use History: None Reported - Past Family History Father Family Medical History: Cancer Additional Family Medical History / Comment(s): colon cancer Mother Family Medical History: Cancer, Myocardial Infarction ([place]) Additional Family Medical History / Comment(s): lung cancer Medications and Allergies Home Medications Medication Instructions Recorded Confirmed Type ARIPiprazole [Abilify] 5 mg PO HS 01/29/18 05/11/24 History Aspirin EC [Ecotrin Low Dose] 81 mg PO DAILY 01/29/18 05/11/24 History Cetirizine HCl 10 mg PO DAILY 01/29/18 05/11/24 History Ferrous Sulfate [Iron] 325 mg PO DAILY 01/29/18 05/11/24 History lisinopriL [Zestril] 5 mg PO DAILY 01/29/18 05/11/24 History Levothyroxine Sodium [Synthroid] 100 mcg PO DAILY 05/11/24 05/11/24 History Omeprazole 20 mg PO DAILY 05/11/24 05/11/24 History Pioglitazone [Actos] 30 mg PO DAILY 05/11/24 05/11/24 History Tirzepatide [Mounjaro] 2.5 mg SQ TH 05/11/24 05/11/24 History Venlafaxine HCl [Effexor XR] 150 mg PO DAILY 05/11/24 05/11/24 History Allergies Allergy/AdvReac Type Severity Reaction Status Date / Time clindamycin Allergy Rash/Hives Verified 05/11/24 16:13 nickel AdvReac Rash/Hives Verified 05/11/24 16:13 propoxyphene [From Darvon] AdvReac Unknown Verified 05/11/24 16:13 amprin AdvReac Unknown Uncoded 05/11/24 14:19 Physical Exam Vitals: Vital Signs Temp Pulse Pulse Resp BP BP Pulse Ox 05/11/24 16:53 97.8 F 87 20 106/56 95 05/11/24 15:44 85 18 93/56 97 05/11/24 14:12 97.9 F 59 L 20 93/56 96 Intake and Output 05/11/24 05/11/24 05/11/24 06:59 14:59 22:59 Intake Total 50 Balance 50 Intake: IV 50 Other: Weight 136.078 kg In general patient is alert and oriented x 3 in no distress HEENT head normocephalic and atraumatic Neck is supple no JVD no goiter no lymphadenopathy no carotid bruit Chest examination is clear to auscultation no crackles no wheezing Cardiac exam reveals regular heart sounds S1 and S2 no gallops no murmurs Abdomen is soft nontender no organomegaly with normal bowel sounds Extremity exam reveals no edema no cyanosis or clubbing Neurological examination reveals no gross focal deficits Results CBC & Chem 7: 05/12/24 06:23 Thrombosis Risk Factor Assmnt - Choose All That Apply Each Factor Represents 1 point: Minor surgery planned Each Risk Factor Represents 2 Points: Age 61-74 years Thrombosis Risk Factor Assessment Total Risk Factor Score: 3 Thrombosis Risk Factor Assessment Level: Moderate Risk Assessment and Plan Assessment: Urinary tract infection Hydronephrosis renal and ureteral calculus obstruction Acute kidney injury History of GERD History of pneumonia History of hypothyroidism History of anxiety bipolar depression DVT prophylaxis Lovenox. GI prophylaxis Protonix Urology service is consulted Blood and urine cultures ordered Patient started on IV antibiotics Time with Patient: Greater than 30 (Greater than 60% of the total time spent in counseling and coordination of care)
--- NOTE | 2024-05-12 10:52 | P.PN ---
Subjective Progress Note Date: 05/12/24 Leisa Celestin, is a 68-year-old female who presented to [facility] emergency room with a chief complaint ofNot feeling well. Patient was a transfer from [facility] with concerns of UTI and worsening renal function CTA was also concerning for kidney stones She was evaluated in the emergency room vital examination on presentation revealedTemp 96.3, heart rate 78, blood pressure 91/61 with pulse ox 95% on room air Patient was admitted to medical floor for further evaluation and treatment. Urology service is consulted Past medical history is significant for Diabetes mellitus, GERD, pneumonia, thyroid disorder, peptic ulcer disease, anxiety bipolar depression On 05/12/2024 Patient is alert and oriented times 3. Patient underwent bilateral ureteral stent insertionWith Dr. Jarvis yesterdayPatient remains on IV antibioticsPatient denies chest pain or shortness of breath. Patient denies nausea vomiting or diarrhea. Patient denies any urinary burning or frequency Objective - Vital Signs Vital signs: Vital Signs Temp 96.3 F L 05/12/24 07:11 Pulse 61 05/12/24 07:11 Resp 18 05/12/24 07:11 BP 125/76 05/12/24 07:11 Pulse Ox 95 05/12/24 07:11 FiO2 Intake & Output 05/11/24 05/12/24 05/12/24 18:59 06:59 18:59 Intake Total 450 1090 220 Output Total 0 1 Balance 450 1089 220 Weight 136.078 kg 136.078 kg Intake: IV 450 Intake, IV Titration 1090 Amount Sodium Chloride 0.9% 1, 1040 000 ml @ 130 mls/hr IV . Q7H42M [facility] Rx#:[id number] cefTRIAXone 1 gm In 50 Sodium Chloride 0.9% 50 ml @ 100 mls/hr IVPB Q12HR [facility] Rx#:[id number] Oral 220 Output: Urine 1 Estimated Blood Loss 0 Other: Voiding Method Toilet Toilet Diaper Diaper Incontinent Incontinent # Voids 2 1 # Bowel Movements 1 - Exam Head normocephalic Neck supple Lungs clear to auscultation bilaterally no wheezing or crackles Heart regular rate and rhythm S1-S2, no rub or gallop Abdomen is soft nontender nondistended positive bowel sounds no hepatosplenomegaly Extremities no edema Neuro alert and orientated to 3 - Labs CBC & Chem 7: 05/12/24 06:23 Labs: Abnormal Lab Results - Last 24 Hours (Table) 05/11/24 05/12/24 05/12/24 Range/Units 21:54 05:45 06:23 WBC 10.58 H (4.50-10.00) X 10*3/uL RBC 3.95 L (4.10-5.20) X 10*6/uL Hgb 11.0 L (12.0-15.0) g/dL Hct 35.8 L (37.2-46.3) % MCHC 30.7 L (32.0-37.0) g/dL RDW 15.5 H (11.5-14.5) % MPV 12.5 H (9.5-12.2) FL Immature Gran # 0.13 H (0.00-0.04) X 10*3/uL Neutrophils # 9.99 H (1.80-7.70) X 10*3/uL Lymphocytes # 0.19 L (0.90-5.00) X 10*3/uL Eosinophils # 0 L (0.04-0.35) X 10*3/uL POC Glucose (mg/dL) 136 H 123 H (70-110) mg/dL Phosphorus (2.4-5.1) mg/dL 05/12/24 Range/Units 06:23 WBC (4.50-10.00) X 10*3/uL RBC (4.10-5.20) X 10*6/uL Hgb (12.0-15.0) g/dL Hct (37.2-46.3) % MCHC (32.0-37.0) g/dL RDW (11.5-14.5) % MPV (9.5-12.2) FL Immature Gran # (0.00-0.04) X 10*3/uL Neutrophils # (1.80-7.70) X 10*3/uL Lymphocytes # (0.90-5.00) X 10*3/uL Eosinophils # (0.04-0.35) X 10*3/uL POC Glucose (mg/dL) (70-110) mg/dL Phosphorus 5.5 H (2.4-5.1) mg/dL Assessment and Plan Assessment: Urinary tract infection Hydronephrosis renal and ureteral calculus obstruction Acute kidney injury History of GERD History of pneumonia History of hypothyroidism History of anxiety bipolar depression DVT prophylaxis Lovenox. GI prophylaxis Protonix Urology service is consulted Blood and urine cultures ordered Patient started on IV antibiotics Status post ureteral stent placement on 05/11/2024
[2024-05-12 10:55] LABS: INR 1.21 sec (0.93-1.11); Prothrombin Time 12.9 sec (9.9-11.9)
[2024-05-12 10:57] LABS: ALT 94 U/L (8-44); AST 173 U/L (13-35); Albumin 3.2 g/dL (3.8-4.9); Albumin/Globulin Ratio 0.94 Ratio (1.60-3.17); Alkaline Phosphatase 169 U/L (41-126); Blood Urea Nitrogen 81.3 mg/dL (9.0-27.0); Calcium 8.2 mg/dL (8.7-10.3); Carbon Dioxide 14.1 mmol/L (21.6-31.8); Chloride 103 mmol/L (96-109); Globulin 3.4 g/dL (1.6-3.3); Glucose 125 mg/dL (70-110); Potassium 4.4 mmol/L (3.5-5.5); Sodium 134 mmol/L (135-145); Total Bilirubin 0.3 mg/dL (0.3-1.2); Total Protein 6.6 g/dL (6.2-8.2)
[2024-05-12 12:03] LABS: Glucose,Whole Blood 108 mg/dL (70-110)
[2024-05-12 13:11] LABS: Appearance,Urine Cloudy (Clear); Bacteria,Urine Rare /hpf; Bilirubin,Urine Negative (Negative); Blood,Urine Large (Negative); Budding Yeast,Urine Many /hpf; Color,Urine Light Yellow; Glucose,Urine (UA) Negative (Negative); Ketones,Urine Negative (Negative); Leukocyte Esterase,Urine Large (Negative); Mucus,Urine Rare /hpf; Nitrite,Urine Negative (Negative); Protein,Urine 2+ (Negative); RBC,Urine >182 /hpf (0-5); Specific Gravity,Urine 1.013 (1.001-1.035); Squamous Epithelial Cell,Urine 1 /hpf (0-4); Urobilinogen,Urine <2.0 mg/dL (<2.0); WBC,Urine >182 /hpf (0-5)
[2024-05-12] MEDS: OXYBUTYNIN XL 5 MG TAB.ER.24 PO SCH (16:38)
--- NOTE | 2024-05-12 16:41 | P.PN ---
Subjective Progress Note Date: 05/12/24 Principal diagnosis: UTI, hydronephrosis The patient is a 68-year-old white female admitted with recurrent UTIs. CT scan shows bilateral hydronephrosis with bilateral renal pelvic/UPJ calculi. She underwent bilateral ureteral stent insertion on May 11, 2024. She was found at that time to have purulent urine draining from the left kidney. Her flank pain has resolved but she is experiencing significant urinary frequency. Objective - Vital Signs Vital signs: Vital Signs Temp 97.7 F 05/12/24 04:21 Pulse 68 05/12/24 04:21 Resp 17 05/12/24 04:21 BP 90/59 05/12/24 04:21 Pulse Ox 96 05/12/24 04:21 FiO2 Intake & Output 05/11/24 05/11/24 05/12/24 06:59 18:59 06:59 Intake Total 450 1090 Output Total 0 1 Balance 450 1089 Weight 136.078 kg 136.078 kg Intake: IV 450 Intake, IV Titration 1090 Amount Sodium Chloride 0.9% 1, 1040 000 ml @ 130 mls/hr IV . Q7H42M [facility] Rx#:[id number] cefTRIAXone 1 gm In 50 Sodium Chloride 0.9% 50 ml @ 100 mls/hr IVPB Q12HR [facility] Rx#:[id number] Output: Urine 1 Estimated Blood Loss 0 Other: Voiding Method Toilet Diaper Incontinent # Voids 2 - Constitutional General appearance: Present: average body habitus, no acute distress - Psychiatric Psychiatric: Present: A&O x's 3 - Labs CBC & Chem 7: 05/12/24 06:23 05/12/24 06:23 Labs: Abnormal Lab Results - Last 24 Hours (Table) 05/11/24 05/12/24 Range/Units 21:54 05:45 POC Glucose (mg/dL) 136 H 123 H (70-110) mg/dL Assessment and Plan (1) Urinary tract infection Current Visit: Yes Status: Acute Code(s): N39.0 - URINARY TRACT INFECTION, SITE NOT SPECIFIED SNOMED Code(s): 70423834 (2) Hydronephrosis with renal and ureteral calculous obstruction Current Visit: Yes Status: Acute Code(s): N13.2 - HYDRONEPHROSIS WITH RENAL AND URETERAL CALCULOUS OBSTRUCTION SNOMED Code(s): 758943003 Plan: - Continue Rocephin - Await culture results - Oxybutynin chloride has been prescribed to decrease overactive bladder symptoms
[2024-05-12 16:52] LABS: Glucose,Whole Blood 104 mg/dL (70-110)
[2024-05-12] MEDS: DEXTROSE 5% IN WATER 1,000 ML with SODIUM BICARB (1 MEQ/ML) 150 ML IV SCH (20:17)
[2024-05-12 20:51] LABS: Glucose,Whole Blood 104 mg/dL (70-110)
[2024-05-12] MEDS: SODIUM CHLORIDE 0.9% 500 ML 500 ML IV ONE (21:22)
--- NOTE | 2024-05-12 22:48 | P.CONS ---
History of Present Illness - Reason for Consult Consult date: 05/12/24 UTI kidney stones Requesting physician: Marcela Singh - Chief Complaint UTI and worsening kidney function x 1 day - History of Present Illness Patient is a 68-year-old female with a past medical history significant for diabetes mellitus reflux pneumonia thyroid disorder presenting to the hospital yesterday afternoon as a transfer from [facility] where the patient has been diagnosed with UTI and the patient was noticed to have worsening kidney function CT did shows evidence of kidney stone at the patient be transferred here to be evaluated by urology patient was taken to the OR and the patient is status post cystoscopy with bilateral retrograde pyelogram and bilateral ureteral stent insertion patient has been started on ceftriaxone infectious disease was consulted for further management of antibiotic therapy unfortunately the patient overall not a very good historian when asked specifically denies having any fever or chills no headache or URI symptoms denies any chest pain shortness of breath occasional cough some nausea but no v omiting no abdominal pain or diarrhea Review of Systems Positive point and negatives has been mentioned in the HPI, complete review of systems was performed and all other systems are negative Past Medical History Past Medical History: Diabetes Mellitus, GERD/Reflux, Pneumonia, Thyroid Disorder Additional Past Medical History / Comment(s): pt stated told her she was boarderline diabetic takes metformin but no bs checks,arthritis, chronic lower back pain, murmur, varicose veins, diverticulosis, constipation, yeast infection under breasts and abd fold also wound rt breast and scabbed areas lt breast, sinus/seasonal allergies, hepatis b,umb hernia, petic ulcer disease, leakage of urine. 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 clausterphobia Past Psychological History: Anxiety, Bipolar, Depression Smoking Status: Never smoker Past Alcohol Use History: None Reported Past Drug Use History: None Reported - Past Family History Father Family Medical History: Cancer Additional Family Medical History / Comment(s): colon cancer Mother Family Medical History: Cancer, Myocardial Infarction ([place]) Additional Family Medical History / Comment(s): lung cancer Medications and Allergies Home Medications Medication Instructions Recorded Confirmed Type ARIPiprazole [Abilify] 5 mg PO HS 01/29/18 05/11/24 History Aspirin EC [Ecotrin Low Dose] 81 mg PO DAILY 01/29/18 05/11/24 History Cetirizine HCl 10 mg PO DAILY 01/29/18 05/11/24 History Ferrous Sulfate [Iron] 325 mg PO DAILY 01/29/18 05/11/24 History Levothyroxine Sodium [Synthroid] 100 mcg PO DAILY 05/11/24 05/11/24 History Omeprazole 20 mg PO DAILY 05/11/24 05/11/24 History Pioglitazone [Actos] 30 mg PO DAILY 05/11/24 05/11/24 History Tirzepatide [Mounjaro] 2.5 mg SQ TH 05/11/24 05/11/24 History Venlafaxine HCl [Effexor XR] 150 mg PO DAILY 05/11/24 05/11/24 History Acetaminophen Tab [Tylenol] 650 mg PO Q6HR PRN tab 05/19/24 Rx Cholestyramine (with Sugar) 4 gm PO BID@1000,1800 packet 05/19/24 Rx [Questran Packet] Enoxaparin [Lovenox] 30 mg SQ DAILY each 05/19/24 Rx Fluconazole [Diflucan] 200 mg PO DAILY #10 tablet 05/19/24 Rx Magnesium Oxide [Mag-Ox] 400 mg PO BID tab 05/19/24 Rx Midodrine [ProAmatine] 10 mg PO TID tab 05/19/24 Rx Nystatin 100,000 Unit/gm Powd 1 applic TOPICAL BID each 05/19/24 Rx [Mycostatin Powder] Oxybutynin Xl [Ditropan XL] 10 mg PO DAILY tab 05/19/24 Rx Fluconazole [Diflucan] 200 mg PO DAILY 7 Days #14 tab 05/25/24 Rx Allergies Allergy/AdvReac Type Severity Reaction Status Date / Time clindamycin Allergy Rash/Hives Verified 05/11/24 16:13 nickel AdvReac Rash/Hives Verified 05/11/24 16:13 propoxyphene [From Darvon] AdvReac Unknown Verified 05/11/24 16:13 amprin AdvReac Unknown Uncoded 05/11/24 14:19 Physical Exam Vitals: Vital Signs Temp Pulse Pulse Resp BP BP BP 05/12/24 07:11 96.3 F L 61 18 125/76 05/12/24 04:21 97.7 F 68 17 90/59 05/11/24 22:14 74 102/66 05/11/24 21:59 79 92/63 05/11/24 21:44 78 91/61 05/11/24 21:29 75 82/50 05/11/24 20:59 78 97/61 05/11/24 20:44 80 96/63 05/11/24 20:36 79 96/63 05/11/24 20:19 97.5 F L 83 19 101/65 05/11/24 19:50 82 16 90/50 05/11/24 19:15 86 16 89/51 05/11/24 19:00 81 16 107/56 05/11/24 18:45 81 16 94/51 05/11/24 18:30 82 16 98/53 05/11/24 18:15 83 16 89/53 05/11/24 18:00 80 16 92/54 05/11/24 17:45 77 16 83/45 05/11/24 16:53 97.8 F 87 20 106/56 05/11/24 15:44 85 18 93/56 05/11/24 14:12 97.9 F 59 L 20 93/56 Pulse Ox 05/12/24 07:11 95 05/12/24 04:21 96 05/11/24 22:14 96 05/11/24 21:59 97 05/11/24 21:44 95 05/11/24 21:29 91 L 05/11/24 20:59 97 05/11/24 20:44 97 05/11/24 20:36 97 05/11/24 20:19 98 05/11/24 19:50 95 05/11/24 19:15 95 05/11/24 19:00 95 05/11/24 18:45 95 05/11/24 18:30 95 05/11/24 18:15 95 05/11/24 18:00 94 L 05/11/24 17:45 98 05/11/24 16:53 95 05/11/24 15:44 97 05/11/24 14:12 96 Intake and Output 05/11/24 05/12/24 05/12/24 22:59 06:59 14:59 Intake Total 450 1090 220 Output Total 0 1 Balance 450 1089 220 Intake: IV 450 Intake, IV Titration 1090 Amount Sodium Chloride 0.9% 1, 1040 000 ml @ 130 mls/hr IV . Q7H42M [facility] Rx#:[id number] cefTRIAXone 1 gm In 50 Sodium Chloride 0.9% 50 ml @ 100 mls/hr IVPB Q12HR BERRY Rx#:[id number] Oral 220 Output: Urine 1 Estimated Blood Loss 0 Other: Voiding Method Toilet Toilet Diaper Diaper Incontinent Incontinent # Voids 9 2 1 # Bowel Movements 1 Weight 136.078 kg GENERAL DESCRIPTION: Elderly female lying in bed, no distress. No tachypnea or accessory muscle of respiration use. HEENT: Shows Pallor , no scleral icterus. Oral mucous membrane is dry. No pharyngeal erythema or thrush NECK: Trachea central, no thyromegaly. LUNGS: Unlabored breathing. Clear to auscultation anteriorly. No wheeze or crackle. HEART: S1, S2, regular rate and rhythm. No loud murmur ABDOMEN: Soft, no tenderness , guarding or rigidity, no organomegaly EXTREMITIES: No edema of feet. SKIN: No rash, no masses palpable. NEUROLOGICAL: The patient is lethargic but arousable mood and affect normal Results CBC & Chem 7: 05/25/24 08:48 05/25/24 08:48 Labs: Abnormal Lab Results - Last 24 Hours (Table) 05/11/24 05/12/24 05/12/24 Range/Units 21:54 05:45 06:23 WBC 10.58 H (4.50-10.00) X 10*3/uL RBC 3.95 L (4.10-5.20) X 10*6/uL Hgb 11.0 L (12.0-15.0) g/dL Hct 35.8 L (37.2-46.3) % MCHC 30.7 L (32.0-37.0) g/dL RDW 15.5 H (11.5-14.5) % MPV 12.5 H (9.5-12.2) FL Immature Gran # 0.13 H (0.00-0.04) X 10*3/uL Neutrophils # 9.99 H (1.80-7.70) X 10*3/uL Lymphocytes # 0.19 L (0.90-5.00) X 10*3/uL Eosinophils # 0 L (0.04-0.35) X 10*3/uL PT (9.9-11.9) sec INR (0.93-1.11) sec Sodium (135-145) mmol/L Carbon Dioxide (21.6-31.8) mmol/L Anion Gap (4.00-12.00) mmol/L BUN (9.0-27.0) mg/dL Creatinine (0.6-1.5) mg/dL Est GFR (CKD-EPI) (>=60) Glucose (70-110) mg/dL POC Glucose (mg/dL) 136 H 123 H (70-110) mg/dL Calcium (8.7-10.3) mg/dL Phosphorus (2.4-5.1) mg/dL AST (13-35) U/L ALT (8-44) U/L Alkaline Phosphatase (41-126) U/L Albumin (3.8-4.9) g/dL Globulin (1.6-3.3) g/dL Albumin/Globulin Ratio (1.60-3.17) Ratio 05/12/05/12/24 Range/Units 06:23 06:23 WBC (4.50-10.00) X 10*3/uL RBC (4.10-5.20) X 10*6/uL Hgb (12.0-15.0) g/dL Hct (37.2-46.3) % MCHC (32.0-37.0) g/dL RDW (11.5-14.5) % MPV (9.5-12.2) FL Immature Gran # (0.00-0.04) X 10*3/uL Neutrophils # (1.80-7.70) X 10*3/uL Lymphocytes # (0.90-5.00) X 10*3/uL Eosinophils # (0.04-0.35) X 10*3/uL PT 12.9 H (9.9-11.9) sec INR 1.21 H (0.93-1.11) sec Sodium 134 L (135-145) mmol/L Carbon Dioxide 14.1 L (21.6-31.8) mmol/L Anion Gap 16.90 H (4.00-12.00) mmol/L BUN 81.3 H (9.0-27.0) mg/dL Creatinine 4.7 H (0.6-1.5) mg/dL Est GFR (CKD-EPI) 10 L (>=60) Glucose 125 H (70-110) mg/dL POC Glucose (mg/dL) (70-110) mg/dL Calcium 8.2 L (8.7-10.3) mg/dL Phosphorus 5.5 H (2.4-5.1) mg/dL AST 173 H (13-35) U/L ALT 94 H (8-44) U/L Alkaline Phosphatase 169 H (41-126) U/L Albumin 3.2 L (3.8-4.9) g/dL Globulin 3.4 H (1.6-3.3) g/dL Albumin/Globulin Ratio 0.94 L (1.60-3.17) Ratio Assessment and Plan (1) Complicated UTI (urinary tract infection) Current Visit: Yes Status: Acute Code(s): N39.0 - URINARY TRACT INFECTION, SITE NOT SPECIFIED SNOMED Code(s): 91310093 Plan: 1patient with a complicated urinary tract infection with evidence of bilateral kidney stone requiring cystoscopy and bilateral ureteral stent placement will need to call for the enteric gram-negative to be the likely pathogen 2-urine culture has been requested results will be followed 3-Rocephin dose adjusted to 2 g daily We will follow on clinical condition and cultures to further adjust medication if needed Thank you for this consultation we will follow the patient along with you Dictation was produced using [employer] dictation software. please excuse any grammatical, word or spelling errors. Time with Patient: Greater than 30
[2024-05-13] MEDS: ANIDULAFUNGIN 200 MG in SODIUM CHLORIDE 0.9% 200 ML IVPB ONE (03:29)
[2024-05-13 06:27] LABS: Glucose,Whole Blood 93 mg/dL (70-110)
[2024-05-13 08:57] LABS: ALT 97 U/L (8-44); AST 151 U/L (13-35); Albumin 2.9 g/dL (3.8-4.9); Albumin/Globulin Ratio 0.97 Ratio (1.60-3.17); Alkaline Phosphatase 223 U/L (41-126); BUN/Creat Ratio 17.39 Ratio (12.00-20.00); Blood Urea Nitrogen 71.3 mg/dL (9.0-27.0); Calcium 8.1 mg/dL (8.7-10.3); Carbon Dioxide 16.7 mmol/L (21.6-31.8); Chloride 104 mmol/L (96-109); Glucose 108 mg/dL (70-110); Potassium 3.8 mmol/L (3.5-5.5); Sodium 135 mmol/L (135-145); Total Bilirubin 0.2 mg/dL (0.3-1.2); Total Protein 5.9 g/dL (6.2-8.2)
[2024-05-13] MEDS: ENOXAPARIN 40 MG/0.4 ML SYRINGE SQ SCH (09:14)
--- NOTE | 2024-05-13 09:16 | P.PN ---
Subjective Progress Note Date: 05/13/24 Principal diagnosis: UTI, hydronephrosis The patient is a 68-year-old white female admitted with recurrent UTIs. CT scan shows bilateral hydronephrosis with bilateral renal pelvic/UPJ calculi. She underwent bilateral ureteral stent insertion on May 11, 2024. She was found at that time to have purulent urine draining from the left kidney. Her flank pain has resolved but she is experiencing significant urinary frequency. This has failed to improve since taking oxybutynin chloride. Objective - Vital Signs Vital signs: Vital Signs Temp 99.9 F H 05/13/24 01:17 Pulse 98 05/13/24 01:17 Resp 16 05/13/24 01:17 BP 92/52 05/13/24 01:17 Pulse Ox 97 05/13/24 01:17 FiO2 Intake & Output 05/12/24 05/12/24 05/13/24 06:59 18:59 06:59 Intake Total 2873 739 9591 Output Total 1 500 200 Balance 1089 -280 1500 Weight 136.078 kg Intake: Intake, IV Titration 1090 1700 Amount Dextrose 5% in Water 1, 1200 000 ml @ 100 mls/hr IV . [id number] BERRY with Sodium Bicarb (1 Meq/ml) 150 ml Rx#:[id number] Sodium Chloride 0.9% 1, 1040 000 ml @ 130 mls/hr IV . Q7H42M [facility] Rx#:[id number] Sodium Chloride 0.9% 500 500 ml 500 ml @ 999 mls/hr IV .Q31M ONE Rx#:[id number] cefTRIAXone 1 gm In 50 Sodium Chloride 0.9% 50 ml @ 100 mls/hr IVPB Q12HR B[facility]Y Rx#:[id number] Oral 220 Output: Urine 1 500 200 Other: Voiding Method Toilet Toilet Toilet Diaper Diaper Diaper Incontinent Incontinent Incontinent # Voids 2 3 # Bowel Movements 1 - Constitutional General appearance: Present: average body habitus, cooperative, no acute distress - Gastrointestinal Gastrointestinal Comment(s): Soft, non-tender, non-distended. - Labs CBC & Chem 7: 05/12/24 06:23 05/13/24 04:56 Labs: Abnormal Lab Results - Last 24 Hours (Table) 05/12/24 05/12/24 05/12/24 Range/Units 06:23 06:23 06:23 WBC 10.58 H (4.50-10.00) X 10*3/uL RBC 3.95 L (4.10-5.20) X 10*6/uL Hgb 11.0 L (12.0-15.0) g/dL Hct 35.8 L (37.2-46.3) % MCHC 30.7 L (32.0-37.0) g/dL RDW 15.5 H (11.5-14.5) % MPV 12.5 H (9.5-12.2) FL Immature Gran # 0.13 H (0.00-0.04) X 10*3/uL Neutrophils # 9.99 H (1.80-7.70) X 10*3/uL Lymphocytes # 0.19 L (0.90-5.00) X 10*3/uL Eosinophils # 0 L (0.04-0.35) X 10*3/uL PT 12.9 H (9.9-11.9) sec INR 1.21 H (0.93-1.11) sec Sodium 134 L (135-145) mmol/L Carbon Dioxide 14.1 L (21.6-31.8) mmol/L Anion Gap 16.90 H (4.00-12.00) mmol/L BUN 81.3 H (9.0-27.0) mg/dL Creatinine 4.7 H (0.6-1.5) mg/dL Est GFR (CKD-EPI) 10 L (>=60) Glucose 125 H (70-110) mg/dL Calcium 8.2 L (8.7-10.3) mg/dL Phosphorus 5.5 H (2.4-5.1) mg/dL AST 173 H (13-35) U/L ALT 94 H (8-44) U/L Alkaline Phosphatase 169 H (41-126) U/L Albumin 3.2 L (3.8-4.9) g/dL Globulin 3.4 H (1.6-3.3) g/dL Albumin/Globulin Ratio 0.94 L (1.60-3.17) Ratio Urine Appearance (Clear) Urine Protein (Negative) Urine Blood (Negative) Ur Leukocyte Esterase (Negative) Urine RBC (0-5) /hpf Urine WBC (0-5) /hpf Urine WBC Clumps (None) /hpf Urine Bacteria (None) /hpf Urine Mucus (None) /hpf Urine Yeast (Budding) (None) /hpf 05/12/24 Range/Units 13:03 WBC (4.50-10.00) X 10*3/uL RBC (4.10-5.20) X 10*6/uL Hgb (12.0-15.0) g/dL Hct (37.2-46.3) % MCHC (32.0-37.0) g/dL RDW (11.5-14.5) % MPV (9.5-12.2) FL Immature Gran # (0.00-0.04) X 10*3/uL Neutrophils # (1.80-7.70) X 10*3/uL Lymphocytes # (0.90-5.00) X 10*3/uL Eosinophils # (0.04-0.35) X 10*3/uL PT (9.9-11.9) sec INR (0.93-1.11) sec Sodium (135-145) mmol/L Carbon Dioxide (21.6-31.8) mmol/L Anion Gap (4.00-12.00) mmol/L BUN (9.0-27.0) mg/dL Creatinine (0.6-1.5) mg/dL Est GFR (CKD-EPI) (>=60) Glucose (70-110) mg/dL Calcium (8.7-10.3) mg/dL Phosphorus (2.4-5.1) mg/dL AST (13-35) U/L ALT (8-44) U/L Alkaline Phosphatase (41-126) U/L Albumin (3.8-4.9) g/dL Globulin (1.6-3.3) g/dL Albumin/Globulin Ratio (1.60-3.17) Ratio Urine Appearance Cloudy H (Clear) Urine Protein 2+ H (Negative) Urine Blood Large H (Negative) Ur Leukocyte Esterase Large H (Negative) Urine RBC >182 H (0-5) /hpf Urine WBC >182 H (0-5) /hpf Urine WBC Clumps Many H (None) /hpf Urine Bacteria Rare H (None) /hpf Urine Mucus Rare H (None) /hpf Urine Yeast (Budding) Many H (None) /hpf Microbiology - Last 24 Hours (Table) 05/11/24 15:30 Blood Culture Gram Stain - Preliminary Blood Blood Culture - Preliminary Molecular ID 05/11/24 15:45 Blood Culture - Preliminary Blood Assessment and Plan Assessment: Urine culture obtained at [facility] on April 07, 2024 showed Vangie. Blood cultures obtained May 11, 2024 at [facility] and [facility] both show Vangie. (1) Urinary tract infection Current Visit: Yes Status: Acute Code(s): N39.0 - URINARY TRACT INFECTION, SITE NOT SPECIFIED SNOMED Code(s): 66740930 (2) Hydronephrosis with renal and ureteral calculous obstruction Current Visit: Yes Status: Acute Code(s): N13.2 - HYDRONEPHROSIS WITH RENAL AND URETERAL CALCULOUS OBSTRUCTION SNOMED Code(s): 244343734 Plan: - Continue Anidulafungin - Await final culture results - Continue Oxybutynin chloride - Will need bilateral ureteroscopy with removal of renal calculi and ureteral stents once her infection has cleared
[2024-05-13 09:23] LABS: Basophils # (A) 0.03 X 10*3/uL (0.00-0.10); Basophils % (A) 0.4 %; Eosinophils # (A) 0.26 X 10*3/uL (0.04-0.35); Eosinophils % (A) 3.6 %; HCT 32.3 % (37.2-46.3); HGB 10.7 g/dL (12.0-15.0); Lymphocytes % (A) 6.9 %; MCH 28.3 pg (27.0-32.0); MCHC 33.1 g/dL (32.0-37.0); MCV 85.4 FL (80.0-97.0); Mean Platelet Volume 12.4 FL (9.5-12.2); Monocytes # (A) 0.36 X 10*3/uL (0.20-1.00); NRBC Per 100 WBC 0 X 10*3/uL (0.00-0.01); Neutrophils # (A) 5.97 X 10*3/uL (1.80-7.70); Neutrophils % (A) 82.2 %; Platelet Count 205 X 10*3/uL (140-440); RBC 3.78 X 10*6/uL (4.10-5.20); RDW 15.7 % (11.5-14.5); WBC 7.26 X 10*3/uL (4.50-10.00)
[2024-05-13] MEDS: NYSTATIN 100,000 UNIT/GM POWD 15 GM TOPICAL SCH (10:12)
--- NOTE | 2024-05-13 11:45 | P.PN ---
Subjective Progress Note Date: 05/13/24 Leisa Celestin, is a 68-year-old female who presented to [facility] emergency room with a chief complaint ofNot feeling well. Patient was a transfer from [facility] with concerns of UTI and worsening renal function CTA was also concerning for kidney stones She was evaluated in the emergency room vital examination on presentation revealedTemp 96.3, heart rate 78, blood pressure 91/61 with pulse ox 95% on room air Patient was admitted to medical floor for further evaluation and treatment. Urology service is consulted Past medical history is significant for Diabetes mellitus, GERD, pneumonia, thyroid disorder, peptic ulcer disease, anxiety bipolar depression On 05/12/2024 Patient is alert and oriented times 3. Patient underwent bilateral ureteral stent insertionWith Dr. Jarvis yesterdayPatient remains on IV antibioticsPatient denies chest pain or shortness of breath. Patient denies nausea vomiting or diarrhea. Patient denies any urinary burning or frequency On 05/13/2024 patient is alert and oriented 3 Patient remains on IV antibiotics infectious disease, urology and nephrology services are following. Per urology patient will eventually need removal of renal calculi stents once her infection is cleared. Patient reporting difficulty with urination and burning. Patient denies chest pain or shortness breath. Patient denies nausea vomiting or diarrhea. Patient denies any urinary burning or frequency Dr. Morales's group will be covering until May 25 Objective - Vital Signs Vital signs: Vital Signs Temp 97.4 F L 05/13/24 07:01 Pulse 94 05/13/24 07:01 Resp 18 05/13/24 07:01 BP 94/64 05/13/24 07:01 Pulse Ox 96 05/13/24 07:01 FiO2 Intake & Output 05/12/24 05/13/24 05/13/24 18:59 06:59 18:59 Intake Total 220 1700 Output Total 500 800 Balance -280 900 Intake: Intake, IV Titration 1700 Amount Dextrose 5% in Water 1, 1200 000 ml @ 100 mls/hr IV . [id number] [facility] with Sodium Bicarb (1 Meq/ml) 150 ml Rx#:[id number] Sodium Chloride 0.9% 500 500 ml 500 ml @ 999 mls/hr IV .Q31M ONE Rx#:[id number] Oral 220 Output: Urine 500 800 Other: Voiding Method Toilet Toilet Toilet Diaper Diaper Diaper Incontinent Incontinent Incontinent # Voids 3 # Bowel Movements 1 - Exam Head normocephalic Neck supple Lungs clear to auscultation bilaterally no wheezing or crackles Heart regular rate and rhythm S1-S2, no rub or gallop Abdomen is soft nontender nondistended positive bowel sounds no hepatosplenomegaly Extremities no edema Neuro alert and orientated to 3 - Labs CBC & Chem 7: 05/13/24 04:56 05/13/24 04:56 Labs: Abnormal Lab Results - Last 24 Hours (Table) 05/12/24 05/13/24 05/13/24 Range/Units 13:03 04:56 04:56 RBC 3.78 L (4.10-5.20) X 10*6/uL Hgb 10.7 L (12.0-15.0) g/dL Hct 32.3 L (37.2-46.3) % RDW 15.7 H (11.5-14.5) % MPV 12.4 H (9.5-12.2) FL Immature Gran # 0.14 H (0.00-0.04) X 10*3/uL Lymphocytes # 0.50 L (0.90-5.00) X 10*3/uL Carbon Dioxide 16.7 L (21.6-31.8) mmol/L Anion Gap 14.30 H (4.00-12.00) mmol/L BUN 71.3 H (9.0-27.0) mg/dL Creatinine 4.1 H (0.6-1.5) mg/dL Est GFR (CKD-EPI) 11 L (>=60) Calcium 8.1 L (8.7-10.3) mg/dL Total Bilirubin 0.2 L (0.3-1.2) mg/dL AST 151 H (13-35) U/L ALT 97 H (8-44) U/L Alkaline Phosphatase 223 H (41-126) U/L Total Protein 5.9 L (6.2-8.2) g/dL Albumin 2.9 L (3.8-4.9) g/dL Albumin/Globulin Ratio 0.97 L (1.60-3.17) Ratio Urine Appearance Cloudy H (Clear) Urine Protein 2+ H (Negative) Urine Blood Large H (Negative) Ur Leukocyte Esterase Large H (Negative) Urine RBC >182 H (0-5) /hpf Urine WBC >182 H (0-5) /hpf Urine WBC Clumps Many H (None) /hpf Urine Bacteria Rare H (None) /hpf Urine Mucus Rare H (None) /hpf Urine Yeast (Budding) Many H (None) /hpf Microbiology - Last 24 Hours (Table) 05/11/24 15:30 Blood Culture Gram Stain - Final Blood Blood Culture - Final Vangie albicans Molecular ID 05/11/24 16:51 Urine Culture - Preliminary Urine,Voided Group D Enterococcus 05/11/24 15:45 Blood Culture - Preliminary Blood Assessment and Plan Assessment: Urinary tract infection Hydronephrosis renal and ureteral calculus obstruction Acute kidney injury History of GERD History of pneumonia History of hypothyroidism History of anxiety bipolar depression DVT prophylaxis Lovenox. GI prophylaxis Protonix Urology service is consulted Infectious disease services following Nephrology services following Blood and urine cultures ordered Patient started on IV antibiotics Status post ureteral stent placement on 05/11/2024
[2024-05-13 11:52] LABS: Glucose,Whole Blood 134 mg/dL (70-110)
[2024-05-13] MEDS: AMPICILLIN-SULBACTAM 3 GM in SODIUM CHLORIDE 0.9% 100 ML IVPB SCH (12:17)
[2024-05-13] MEDS: MIDODRINE 5 MG TAB PO SCH (12:22)
--- NOTE | 2024-05-13 13:12 | P.NPCON ---
History of Present Illness - Reason for Consult acute renal failure - History of Present Illness patient is a 68-year-old femalewith history of recurrent urinary tract infections. Patient also has underlying type 2 diabetesand hypertension. She was transferred from [facility] for further urology Intervention as computed tomography scan showed bilateral hydronephrosis and bilateral renal calculi. Patient has been evaluated by urology and is status post cystoscopy and bilateral ureteral stent placement on 05/11/2024. serum creatinine was 4.7 yesterday and has decreased to 4.1 today. Blood pressure has been low with systolic blood pressure in the 80s. Patient is maintained on IV fluids. She is currently voiding well. Urine cultures are growing group D enterococcus and blood culture is growing Vangie. Patient is being followed by ID. Review of Systems as per HPI Past Medical History Past Medical History: Diabetes Mellitus, GERD/Reflux, Pneumonia, Thyroid Disorder Additional Past Medical History / Comment(s): pt stated dr told her she was boarderline diabetic takes metformin but no bs checks,arthritis, chronic lower back pain, murmur, varicose veins, diverticulosis, constipation, yeast infection under breasts and abd fold also wound rt breast and scabbed areas lt breast, s inus/seasonal allergies, hepatis b,umb hernia, petic ulcer disease, leakage of urine. 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 clausterphobia Past Psychological History: Anxiety, Bipolar, Depression Smoking Status: Never smoker Past Alcohol Use History: None Reported Past Drug Use History: None Reported - Past Family History Father Family Medical History: Cancer Additional Family Medical History / Comment(s): colon cancer Mother Family Medical History: Cancer, Myocardial Infarction ([place]) Additional Family Medical History / Comment(s): lung cancer Medications and Allergies Home Medications Medication Instructions Recorded Confirmed Type ARIPiprazole [Abilify] 5 mg PO HS 01/29/18 05/11/24 History Aspirin EC [Ecotrin Low Dose] 81 mg PO DAILY 01/29/18 05/11/24 History Cetirizine HCl 10 mg PO DAILY 01/29/18 05/11/24 History Ferrous Sulfate [Iron] 325 mg PO DAILY 01/29/18 05/11/24 History lisinopriL [Zestril] 5 mg PO DAILY 01/29/18 05/11/24 History Levothyroxine Sodium [Synthroid] 100 mcg PO DAILY 05/11/24 05/11/24 History Omeprazole 20 mg PO DAILY 05/11/24 05/11/24 History Pioglitazone [Actos] 30 mg PO DAILY 05/11/24 05/11/24 History Tirzepatide [Mounjaro] 2.5 mg SQ TH 05/11/24 05/11/24 History Venlafaxine HCl [Effexor XR] 150 mg PO DAILY 05/11/24 05/11/24 History Allergies Allergy/AdvReac Type Severity Reaction Status Date / Time clindamycin Allergy Rash/Hives Verified 05/11/24 16:13 nickel AdvReac Rash/Hives Verified 05/11/24 16:13 propoxyphene [From Darvon] AdvReac Unknown Verified 05/11/24 16:13 amprin AdvReac Unknown Uncoded 05/11/24 14:19 Physical Exam Vitals: Vital Signs Temp Pulse Resp BP Pulse Ox 05/13/24 07:01 97.4 F L 94 18 94/64 96 05/13/24 06:29 122/52 05/13/24 01:17 99.9 F H 98 16 92/52 97 05/12/24 23:59 92/60 05/12/24 21:07 58 L 80/42 05/12/24 20:00 100.3 F H 55 L 19 72/52 100 05/12/24 14:02 97.7 F 56 L 17 95/61 96 Intake and Output 05/12/24 05/13/24 05/13/24 22:59 06:59 14:59 Intake Total 1700 Output Total 200 800 400 Balance -200 900 -400 Intake: Intake, IV Titration 1700 Amount Dextrose 5% in Water 1, 1200 000 ml @ 100 mls/hr IV . [id number] BERRY with Sodium Bicarb (1 Meq/ml) 150 ml Rx#:[id number] Sodium Chloride 0.9% 500 500 ml 500 ml @ 999 mls/hr IV .Q31M ONE Rx#:[id number] Output: Urine 200 800 400 Other: Voiding Method Toilet Toilet Diaper Diaper Incontinent Incontinent # Voids 3 10 # Bowel Movements 1 patient is awake, comfortable, no acute distress. Examination of the heart S1 and Examination lower extremity shows no significant edema [employer] DEVEL[employer] exam grossly intact Results - Lab Results Most recent lab results Calcium 8.1 mg/dL (8.7-10.3) L 05/13/24 04:56 Phosphorus 5.5 mg/dL (2.4-5.1) H 05/12/24 06:23 Magnesium 2.2 mg/dL (1.5-2.4) 05/12/24 06:23 05/13/24 04:56 05/13/24 04:56 Assessment and Plan Assessment: 1. Acute kidney injury, ATN secondary to sepsis and hypotension. Currently nonoliguric and improving. Patient is maintained on IV fluids. No nephrotoxic agents identified. 2. Sepsis with UTI and blood cultures growing Vangie. Maintained on antifungal and antibiotics and being followed by ID. 3. Bilateral hydronephrosis with bilateral nephrolithiasis, status post cystoscopy and bilateral ureteral stent placement 4. History of nephrolithiasis 5. Anion gap metabolic acidosis associated with acute kidney injury Plan: change IVF to IV bicarb. This was changed yesterday. Repeat labs in a.m. Continue with antibiotics as per ID Avoid any other nephrotoxic agents. add low-dose midodrine
[2024-05-13 13:18] LABS: ALT 101 U/L (4-34); AST 150 U/L (14-36); African American GFR (CKD) 14 (>60 ml/min/1.73 sqM); Albumin 3.2 g/dL (3.5-5.0); Alkaline Phosphatase 338 U/L (38-126); Anion Gap 13 mmol/L; Blood Urea Nitrogen 69 mg/dL (7-17); Calcium 8.4 mg/dL (8.4-10.2); Carbon Dioxide 18 mmol/L (22-30); Chloride 104 mmol/L (98-107); Globulin 3.2 g/dL; Glucose 124 mg/dL (74-99); Non-African American GFR(CKD) 12 (>60 ml/min/1.73 sqM); Potassium 3.6 mmol/L (3.5-5.1); Sodium 135 mmol/L (137-145); Total Bilirubin 0.5 mg/dL (0.2-1.3); Total Protein 6.4 g/dL (6.3-8.2)
[2024-05-13 13:44] LABS: Basophils % (A) 1 %; Eosinophils # (A) 0.2 k/uL (0-0.7); Eosinophils % (A) 3 %; HCT 40.4 % (34.0-46.0); HGB 12.3 gm/dL (11.4-16.0); Lymphocytes # (A) 0.7 k/uL (1.0-4.8); Lymphocytes % (A) 10 %; MCH 27.7 pg (25.0-35.0); MCHC 30.4 g/dL (31.0-37.0); MCV 91.1 fL (80.0-100.0); Mean Platelet Volume 10.6; Monocytes # (A) 0.4 k/uL (0-1.0); Monocytes % (A) 6 %; Neutrophils % (A) 77 %; Platelet Count 240 k/uL (150-450); RBC 4.44 m/uL (3.80-5.40); RDW 15.1 % (11.5-15.5); WBC 6.4 k/uL (3.8-10.6)
--- NOTE | 2024-05-13 14:31 | US ---
EXAMINATION TYPE: US liver DATE OF EXAM: 05/13/2024 COMPARISON: CT CLINICAL INDICATION: Female, 68 years old with history of elevated liver enzymes; Elevated LFT's, GB absent TECHNIQUE: Multiple sonographic images of the right upper quadrant are obtained. 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
[2024-05-13 17:07] LABS: Glucose,Whole Blood 138 mg/dL (70-110)
[2024-05-13 20:41] LABS: Glucose,Whole Blood 107 mg/dL (70-110)
[2024-05-13] MEDS: ANIDULAFUNGIN 100 MG in SODIUM CHLORIDE 0.9% 100 ML IVPB SCH (21:51)
[2024-05-14 06:13] LABS: Glucose,Whole Blood 127 mg/dL (70-110)
--- NOTE | 2024-05-14 07:21 | P.PN ---
Subjective Progress Note Date: 05/13/24 Principal diagnosis: Reason for follow-up is complicated UTI and candidemia sudheer is a 68-year-old female with a past medical history negative for diabetes mellitus reflux pneumonia thyroid disorder presenting to the hospital yesterday afternoon as a transfer from [facility] where the patient has been diagnosed with UTI and the patient was noticed to have worsening kidney function CT did shows evidence of kidney stone patient is status post bilateral ureteral stent placement. Blood cultures came back positive with Vangie. On today's evaluation that is 05/13/2024, Patient is afebrile this morning and denies any chills, patient mention breathing comfortably and is currently on room air, patient denies any chest pain occasional cough patient denies any abdominal pain no diarrhea no nausea no vomiting Patient white count 6.4 creatinine 3.75 blood cultures with Vangie urine cultures growing Enterococcus Objective - Vital Signs Vital signs: Vital Signs Temp 97.4 F L 05/13/24 07:01 Pulse 94 05/13/24 07:01 Resp 18 05/13/24 07:01 BP 94/64 05/13/24 07:01 Pulse Ox 96 05/13/24 07:01 FiO2 Intake & Output 05/12/24 05/13/24 05/13/24 18:59 06:59 18:59 Intake Total 220 1700 Output Total 500 800 Balance -280 900 Intake: Intake, IV Titration 1700 Amount Dextrose 5% in Water 1, 1200 000 ml @ 100 mls/hr IV . [id number] BERRY with Sodium Bicarb (1 Meq/ml) 150 ml Rx#:[id number] Sodium Chloride 0.9% 500 500 ml 500 ml @ 999 mls/hr IV .Q31M ONE Rx#:[id number] Oral 220 Output: Urine 500 800 Other: Voiding Method Toilet Toilet Toilet Diaper Diaper Diaper Incontinent Incontinent Incontinent # Voids 3 # Bowel Movements 1 - Exam GENERAL DESCRIPTION: An elderly female up in the chair in no distress RESPIRATORY SYSTEM: Unlabored breathing , decreased breath sounds at bases HEART: S1 S2 regular rate and rhythm , ABDOMEN: Soft , no tenderness EXTREMITIES: No edema feet - Labs CBC & Chem 7: 05/13/24 12:34 05/13/24 12:34 Labs: Abnormal Lab Results - Last 24 Hours (Table) 0605/13/24 05/13/24 Range/Units 13:03 04:56 04:56 RBC 3.78 L (4.10-5.20) X 10*6/uL Hgb 10.7 L (12.0-15.0) g/dL Hct 32.3 L (37.2-46.3) % RDW 15.7 H (11.5-14.5) % MPV 12.4 H (9.5-12.2) FL Immature Gran # 0.14 H (0.00-0.04) X 10*3/uL Lymphocytes # 0.50 L (0.90-5.00) X 10*3/uL Carbon Dioxide 16.7 L (21.6-31.8) mmol/L Anion Gap 14.30 H (4.00-12.00) mmol/L BUN 71.3 H (9.0-27.0) mg/dL Creatinine 4.1 H (0.6-1.5) mg/dL Est GFR (CKD-EPI) 11 L (>=60) Calcium 8.1 L (8.7-10.3) mg/dL Total Bilirubin 0.2 L (0.3-1.2) mg/dL AST 151 H (13-35) U/L ALT 97 H (8-44) U/L Alkaline Phosphatase 223 H (41-126) U/L Total Protein 5.9 L (6.2-8.2) g/dL Albumin 2.9 L (3.8-4.9) g/dL Albumin/Globulin Ratio 0.97 L (1.60-3.17) Ratio Urine Appearance Cloudy H (Clear) Urine Protein 2+ H (Negative) Urine Blood Large H (Negative) Ur Leukocyte Esterase Large H (Negative) Urine RBC >182 H (0-5) /hpf Urine WBC >182 H (0-5) /hpf Urine WBC Clumps Many H (None) /hpf Urine Bacteria Rare H (None) /hpf Urine Mucus Rare H (None) /hpf Urine Yeast (Budding) Many H (None) /hpf Microbiology - Last 24 Hours (Table) 05/11/24 15:30 Blood Culture Gram Stain - Final Blood Blood Culture - Final Vangie albicans Molecular ID 05/11/24 16:51 Urine Culture - Preliminary Urine,Voided Group D Enterococcus 05/11/24 15:45 Blood Culture - Preliminary Blood Assessment and Plan (1) Complicated UTI (urinary tract infection) Current Visit: Yes Status: Acute Code(s): N39.0 - URINARY TRACT INFECTION, SITE NOT SPECIFIED SNOMED Code(s): 84539361 (2) Candidemia Current Visit: Yes Status: Acute Code(s): B37.7 - CANDIDAL SEPSIS SNOMED Code(s): 623541681 Plan: 1patient with a complicated urinary tract infection with evidence of bilateral kidney stone requiring cystoscopy and bilateral ureteral stent placement will need to call for the enteric gram-negative to be the likely pathogen 2-urine culture currently growing group D Enterococcus blood culture positive for Vangie 3-blood culture repeated document clearance of bacteremia 4-Eraxis has been added discontinue Rocephin and start the patient on Unasyn while waiting for sensitivity on Enterococcus Dictation was produced using [employer] dictation software. please excuse any grammatical, word or spelling errors. Time with Patient: Less than 30
[2024-05-14 08:46] LABS: Basophils # (A) 0.04 X 10*3/uL (0.00-0.10); Basophils % (A) 0.5 %; Eosinophils # (A) 0.48 X 10*3/uL (0.04-0.35); Eosinophils % (A) 6.3 %; HCT 33.1 % (37.2-46.3); HGB 10.3 g/dL (12.0-15.0); Lymphocytes # (A) 1.03 X 10*3/uL (0.90-5.00); Lymphocytes % (A) 13.6 %; MCHC 31.1 g/dL (32.0-37.0); MCV 86.9 FL (80.0-97.0); Mean Platelet Volume 12.3 FL (9.5-12.2); Monocytes % (A) 7.9 %; NRBC Per 100 WBC 0 X 10*3/uL (0.00-0.01); Neutrophils # (A) 5.08 X 10*3/uL (1.80-7.70); Neutrophils % (A) 67.3 %; Platelet Count 199 X 10*3/uL (140-440); RBC 3.81 X 10*6/uL (4.10-5.20); RDW 15.8 % (11.5-14.5); WBC 7.56 X 10*3/uL (4.50-10.00)
[2024-05-14 09:11] LABS: ALT 83 U/L (8-44); AST 90 U/L (13-35); Albumin 2.8 g/dL (3.8-4.9); Albumin/Globulin Ratio 1.04 Ratio (1.60-3.17); Alkaline Phosphatase 231 U/L (41-126); BUN/Creat Ratio 16.38 Ratio (12.00-20.00); Blood Urea Nitrogen 60.6 mg/dL (9.0-27.0); Carbon Dioxide 24.6 mmol/L (21.6-31.8); Chloride 101 mmol/L (96-109); Globulin 2.7 g/dL (1.6-3.3); Glucose 122 mg/dL (70-110); Potassium 3.3 mmol/L (3.5-5.5); Sodium 139 mmol/L (135-145); Total Bilirubin <0.2 mg/dL (0.3-1.2); Total Protein 5.5 g/dL (6.2-8.2)
--- NOTE | 2024-05-14 10:00 | P.PN ---
Subjective Progress Note Date: 05/14/24 Principal diagnosis: UTI, hydronephrosis The patient is a 68-year-old white female admitted with recurrent UTIs. CT scan shows bilateral hydronephrosis with bilateral renal pelvic/UPJ calculi. She underwent bilateral ureteral stent insertion on May 11, 2024. She was found at that time to have purulent urine draining from the left kidney. Her flank pain has resolved but she is experiencing significant urinary frequency. This has failed to improve since taking oxybutynin chloride. She reports minimal pain with micturition, and states that this is improving. Objective - Vital Signs Vital signs: Vital Signs Temp 97.4 F L 05/14/24 00:59 Pulse 79 05/14/24 00:59 Resp 16 05/14/24 00:59 BP 89/59 05/13/24 19:47 Pulse Ox 95 05/14/24 00:59 FiO2 Intake & Output 05/13/24 05/13/24 05/14/24 06:59 18:59 06:59 Intake Total 1700 Output Total 800 900 Balance 900 -900 Intake: Intake, IV Titration 1700 Amount Dextrose 5% in Water 1, 1200 000 ml @ 100 mls/hr IV . [id number] BERRY with Sodium Bicarb (1 Meq/ml) 150 ml Rx#:[id number] Sodium Chloride 0.9% 500 500 ml 500 ml @ 999 mls/hr IV .Q31M ONE Rx#:[id number] Output: Urine 800 900 Other: Voiding Method Toilet Toilet Diaper Diaper Incontinent Incontinent # Voids 10 # Bowel Movements 2 1 - Constitutional General appearance: Present: average body habitus, no acute distress - Labs CBC & Chem 7: 05/14/24 05:26 05/14/24 05:26 Labs: Abnormal Lab Results - Last 24 Hours (Table) 05/13/24 05/13/24 05/13/24 Range/Units 04:56 04:56 11:50 RBC 3.78 L (4.10-5.20) X 10*6/uL Hgb 10.7 L (12.0-15.0) g/dL Hct 32.3 L (37.2-46.3) % MCHC (31.0-37.0) g/dL RDW 15.7 H (11.5-14.5) % MPV 12.4 H (9.5-12.2) FL Immature Gran # 0.14 H (0.00-0.04) X 10*3/uL Lymphocytes # 0.50 L (0.90-5.00) X 10*3/uL Sodium (137-145) mmol/L Carbon Dioxide 16.7 L (21.6-31.8) mmol/L Anion Gap 14.30 H (4.00-12.00) mmol/L BUN 71.3 H (9.0-27.0) mg/dL Creatinine 4.1 H (0.6-1.5) mg/dL Est GFR (CKD-EPI) 11 L (>=60) Glucose (74-99) mg/dL POC Glucose (mg/dL) 134 H (70-110) mg/dL Calcium 8.1 L (8.7-10.3) mg/dL Total Bilirubin 0.2 L (0.3-1.2) mg/dL AST 151 H (13-35) U/L ALT 97 H (8-44) U/L Alkaline Phosphatase 223 H (41-126) U/L Total Protein 5.9 L (6.2-8.2) g/dL Albumin 2.9 L (3.8-4.9) g/dL Albumin/Globulin Ratio 0.97 L (1.60-3.17) Ratio 05/13/24 05/13/24 05/13/24 Range/Units 12:34 12:34 17:06 RBC (4.10-5.20) X 10*6/uL Hgb (12.0-15.0) g/dL Hct (37.2-46.3) % MCHC 30.4 L (31.0-37.0) g/dL RDW (11.5-14.5) % MPV (9.5-12.2) FL Immature Gran # (0.00-0.04) X 10*3/uL Lymphocytes # 0.7 L (0.90-5.00) X 10*3/uL Sodium 135 L (137-145) mmol/L Carbon Dioxide 18 L (21.6-31.8) mmol/L Anion Gap (4.00-12.00) mmol/L BUN 69 H (9.0-27.0) mg/dL Creatinine 3.75 H (0.6-1.5) mg/dL Est GFR (CKD-EPI) (>=60) Glucose 124 H (74-99) mg/dL POC Glucose (mg/dL) 138 H (70-110) mg/dL Calcium (8.7-10.3) mg/dL Total Bilirubin (0.3-1.2) mg/dL AST 150 H (13-35) U/L ALT 101 H (8-44) U/L Alkaline Phosphatase 338 H (41-126) U/L Total Protein (6.2-8.2) g/dL Albumin 3.2 L (3.8-4.9) g/dL Albumin/Globulin Ratio (1.60-3.17) Ratio 05/14/24 Range/Units 06:12 RBC (4.10-5.20) X 10*6/uL Hgb (12.0-15.0) g/dL Hct (37.2-46.3) % MCHC (31.0-37.0) g/dL RDW (11.5-14.5) % MPV (9.5-12.2) FL Immature Gran # (0.00-0.04) X 10*3/uL Lymphocytes # (0.90-5.00) X 10*3/uL Sodium (137-145) mmol/L Carbon Dioxide (21.6-31.8) mmol/L Anion Gap (4.00-12.00) mmol/L BUN (9.0-27.0) mg/dL Creatinine (0.6-1.5) mg/dL Est GFR (CKD-EPI) (>=60) Glucose (74-99) mg/dL POC Glucose (mg/dL) 127 H (70-110) mg/dL Calcium (8.7-10.3) mg/dL Total Bilirubin (0.3-1.2) mg/dL AST (13-35) U/L ALT (8-44) U/L Alkaline Phosphatase (41-126) U/L Total Protein (6.2-8.2) g/dL Albumin (3.8-4.9) g/dL Albumin/Globulin Ratio (1.60-3.17) Ratio Microbiology - Last 24 Hours (Table) 05/11/24 15:45 Blood Culture - Preliminary Blood 05/11/24 15:30 Blood Culture Gram Stain - Final Blood Blood Culture - Final Vangie albicans Molecular ID 05/11/24 16:51 Urine Culture - Preliminary Urine,Voided Group D Enterococcus Assessment and Plan Assessment: Urine culture obtained at [facility] on April 07, 2024 showed Vangie. Blood cultures obtained May 11, 2024 at [facility] and [facility] both show Vangie. Urine culture obtained upon admission shows group D Enterococcus. (1) Urinary tract infection Current Visit: Yes Status: Acute Code(s): N39.0 - URINARY TRACT INFECTION, SITE NOT SPECIFIED SNOMED Code(s): 85841139 (2) Hydronephrosis with renal and ureteral calculous obstruction Current Visit: Yes Status: Acute Code(s): N13.2 - HYDRONEPHROSIS WITH RENAL AND URETERAL CALCULOUS OBSTRUCTION SNOMED Code(s): 439427676 Plan: - Continue Anidulafungin and Unasyn - Await final culture results - Continue Oxybutynin chloride - Will need bilateral ureteroscopy with removal of renal calculi and ureteral stents once her infection has cleared
[2024-05-14] MEDS ORDERED: Potassium Replacement Protocol 1 EACH MISC MISCELLANE PRN (10:11)
[2024-05-14] MEDS: ENOXAPARIN 30 MG/0.3 ML SYRINGE SQ SCH (10:15)
[2024-05-14] MEDS: NON FORMULARY DRUG (Tirzepatide [Mounjaro] 2.5 MG/0.5 ML Pen.Injctr) SQ SCH (10:22)
[2024-05-14 11:50] LABS: Glucose,Whole Blood 104 mg/dL (70-110)
[2024-05-14] MEDS: POTASSIUM CHLORIDE ER 20 MEQ TAB.ER PO SCH (12:10)
--- NOTE | 2024-05-14 13:15 | P.PN ---
Subjective patient is seen for follow-up for acute kidney injury. status post cystoscopy and bilateral ureteral stent placement for bilateral hydronephrosis and kidney stones on 05/11/2024. Currently maintained on IV bicarb. Patient is in the bathroom and on the commode. She has had good urine output. Serum creatinine staying at 3.7. It was 4.7 on initial admission. Objective - Vital Signs Vital signs: Vital Signs Temp 98.0 F 05/14/24 08:00 Pulse 98 05/14/24 08:00 Resp 17 05/14/24 08:00 BP 96/68 05/14/24 08:00 Pulse Ox 95 05/14/24 00:59 FiO2 Intake & Output 05/13/24 05/14/24 05/14/24 18:59 06:59 18:59 Output Total 900 1550 Balance -900 -1550 Output: Urine 900 1550 Other: Voiding Method Toilet Toilet Diaper Diaper Incontinent Incontinent # Voids 10 1 # Bowel Movements 2 1 - Exam patient is awake, comfortable Alert oriented 3 No acute distress No significant edema noted Anus exam grossly intact Patient is sitting on the commode in the bathroom. - Labs CBC & Chem 7: 05/14/24 05:26 05/14/24 05:26 Labs: Abnormal Lab Results - Last 24 Hours (Table) 05/13/24 05/13/24 05/13/24 Range/Units 12:34 12:34 17:06 RBC (4.10-5.20) X 10*6/uL Hgb (12.0-15.0) g/dL Hct (37.2-46.3) % MCHC 30.4 L (31.0-37.0) g/dL RDW (11.5-14.5) % MPV (9.5-12.2) FL Immature Gran # (0.00-0.04) X 10*3/uL Lymphocytes # 0.7 L (1.0-4.8) k/uL Eosinophils # (0.04-0.35) X 10*3/uL Sodium 135 L (137-145) mmol/L Potassium (3.5-5.5) mmol/L Carbon Dioxide 18 L (22-30) mmol/L Anion Gap (4.00-12.00) mmol/L BUN 69 H (7-17) mg/dL Creatinine 3.75 H (0.52-1.04) mg/dL Est GFR (CKD-EPI) (>=60) Glucose 124 H (74-99) mg/dL POC Glucose (mg/dL) 138 H (70-110) mg/dL Calcium (8.7-10.3) mg/dL Total Bilirubin (0.3-1.2) mg/dL AST 150 H (14-36) U/L ALT 101 H (4-34) U/L Alkaline Phosphatase 338 H (38-126) U/L Total Protein (6.2-8.2) g/dL Albumin 3.2 L (3.5-5.0) g/dL Albumin/Globulin Ratio (1.60-3.17) Ratio 05/14/24 05/14/24 05/14/24 Range/Units 05:26 05:26 06:12 RBC 3.81 L (4.10-5.20) X 10*6/uL Hgb 10.3 L (12.0-15.0) g/dL Hct 33.1 L (37.2-46.3) % MCHC 31.1 L (31.0-37.0) g/dL RDW 15.8 H (11.5-14.5) % MPV 12.3 H (9.5-12.2) FL Immature Gran # 0.33 H (0.00-0.04) X 10*3/uL Lymphocytes # (1.0-4.8) k/uL Eosinophils # 0.48 H (0.04-0.35) X 10*3/uL Sodium (137-145) mmol/L Potassium 3.3 L (3.5-5.5) mmol/L Carbon Dioxide (22-30) mmol/L Anion Gap 13.40 H (4.00-12.00) mmol/L BUN 60.6 H (7-17) mg/dL Creatinine 3.7 H (0.52-1.04) mg/dL Est GFR (CKD-EPI) 13 L (>=60) Glucose 122 H (74-99) mg/dL POC Glucose (mg/dL) 127 H (70-110) mg/dL Calcium 8.0 L (8.7-10.3) mg/dL Total Bilirubin <0.2 L (0.3-1.2) mg/dL AST 90 H (14-36) U/L ALT 83 H (4-34) U/L Alkaline Phosphatase 231 H (38-126) U/L Total Protein 5.5 L (6.2-8.2) g/dL Albumin 2.8 L (3.5-5.0) g/dL Albumin/Globulin Ratio 1.04 L (1.60-3.17) Ratio Microbiology - Last 24 Hours (Table) 05/11/24 15:45 Blood Culture - Preliminary Blood 05/11/24 15:30 Blood Culture Gram Stain - Final Blood Blood Culture - Final Vangie albicans Molecular ID Assessment and Plan Assessment: 1. Acute kidney injury, ATN secondary to sepsis and hypotension. Currently nonoliguric and improving. Patient is maintained on IV fluids. No nephrotoxic agents identified. 2. Sepsis with UTI, urine culture growing group D enterococcus and blood cultures growing Vangie. Maintained on antifungal and antibiotics and being followed by ID. 3. Bilateral hydronephrosis with bilateral nephrolithiasis, status post cystoscopy and bilateral ureteral stent placement 4. History of nephrolithiasis 5. Anion gap metabolic acidosis associated with acute kidney injury Plan: switch to Ringer lactate Replace potassium. Repeat labs in a.m. Continue with antibiotics as per ID Avoid any other nephrotoxic agents. increase dose of midodrine
[2024-05-14] MEDS: LACTATED RINGERS 1,000 ML IV SCH (14:08)
[2024-05-14] MEDS: AMPICILLIN-SULBACTAM 3 GM in SODIUM CHLORIDE 0.9% 100 ML IVPB SCH (14:10)
[2024-05-14] MEDS: IOPAMIDOL CONTRAST (ORAL USE) VIAL PO PRN (14:37)
--- NOTE | 2024-05-14 16:34 | P.PN ---
Subjective Progress Note Date: 05/14/24 Principal diagnosis: Reason for follow-up is complicated UTI and candidemia sudheer is a 68-year-old female with a past medical history negative for diabetes mellitus reflux pneumonia thyroid disorder presenting to the hospital yesterday afternoon as a transfer from [facility] where the patient has been diagnosed with UTI and the patient was noticed to have worsening kidney function CT did shows evidence of kidney stone patient is status post bilateral ureteral stent placement. Blood cultures came back positive with Vangie. On today's evaluation that is 05/14/2024,the patient denies any fever or any chills, patient is breathing comfortably on room air, the patient denies chest pain shortness of breath and no significant cough, patient denies abdominal pain, no nausea vomiting or diarrhea. Mention feeling slightly better. Patient white count is 7.56, creatinine 3.7 urine with Enterococcus faecium that is resistant to ampicillin Objective - Vital Signs Vital signs: Vital Signs Temp 98.0 F 05/14/24 14:00 Pulse 85 05/14/24 14:00 Resp 17 05/14/24 14:00 BP 90/62 05/14/24 14:00 Pulse Ox 98 05/14/24 14:00 FiO2 Intake & Output 05/13/24 05/14/24 05/14/24 18:59 06:59 18:59 Output Total 900 1550 18 Balance -900 -1550 -18 Output: Urine 900 1550 12 Stool 6 Other: Voiding Method Toilet Toilet Diaper Diaper Incontinent Incontinent # Voids 10 12 # Bowel Movements 2 1 5 - Exam GENERAL DESCRIPTION: An elderly female up in the chair in no distress RESPIRATORY SYSTEM: Unlabored breathing , decreased breath sounds at bases HEART: S1 S2 regular rate and rhythm , ABDOMEN: Soft , no tenderness EXTREMITIES: No edema feet - Labs CBC & Chem 7: 05/14/24 05:26 05/14/24 05:26 Labs: Abnormal Lab Results - Last 24 Hours (Table) 05/13/24 05/14/24 05/14/24 Range/Units 17:06 05:26 05:26 RBC 3.81 L (4.10-5.20) X 10*6/uL Hgb 10.3 L (12.0-15.0) g/dL Hct 33.1 L (37.2-46.3) % MCHC 31.1 L (32.0-37.0) g/dL RDW 15.8 H (11.5-14.5) % MPV 12.3 H (9.5-12.2) FL Immature Gran # 0.33 H (0.00-0.04) X 10*3/uL Eosinophils # 0.48 H (0.04-0.35) X 10*3/uL Potassium 3.3 L (3.5-5.5) mmol/L Anion Gap 13.40 H (4.00-12.00) mmol/L BUN 60.6 H (9.0-27.0) mg/dL Creatinine 3.7 H (0.6-1.5) mg/dL Est GFR (CKD-EPI) 13 L (>=60) Glucose 122 H (70-110) mg/dL POC Glucose (mg/dL) 138 H (70-110) mg/dL Calcium 8.0 L (8.7-10.3) mg/dL Total Bilirubin <0.2 L (0.3-1.2) mg/dL AST 90 H (13-35) U/L ALT 83 H (8-44) U/L Alkaline Phosphatase 231 H (41-126) U/L Total Protein 5.5 L (6.2-8.2) g/dL Albumin 2.8 L (3.8-4.9) g/dL Albumin/Globulin Ratio 1.04 L (1.60-3.17) Ratio // Range/Units 06:12 RBC (4.10-5.20) X 10*6/uL Hgb (12.0-15.0) g/dL Hct (37.2-46.3) % MCHC (32.0-37.0) g/dL RDW (11.5-14.5) % MPV (9.5-12.2) FL Immature Gran # (0.00-0.04) X 10*3/uL Eosinophils # (0.04-0.35) X 10*3/uL Potassium (3.5-5.5) mmol/L Anion Gap (4.00-12.00) mmol/L BUN (9.0-27.0) mg/dL Creatinine (0.6-1.5) mg/dL Est GFR (CKD-EPI) (>=60) Glucose (70-110) mg/dL POC Glucose (mg/dL) 127 H (70-110) mg/dL Calcium (8.7-10.3) mg/dL Total Bilirubin (0.3-1.2) mg/dL AST (13-35) U/L ALT (8-44) U/L Alkaline Phosphatase (41-126) U/L Total Protein (6.2-8.2) g/dL Albumin (3.8-4.9) g/dL Albumin/Globulin Ratio (1.60-3.17) Ratio Microbiology - Last 24 Hours (Table) 05/11/24 16:51 Urine Culture - Final Urine,Voided Enterococcus faecium 05/11/24 15:45 Blood Culture - Preliminary Blood Assessment and Plan (1) Complicated UTI (urinary tract infection) Current Visit: Yes Status: Acute Code(s): N39.0 - URINARY TRACT INFECTION, SITE NOT SPECIFIED SNOMED Code(s): 78176759 (2) Candidemia Current Visit: Yes Status: Acute Code(s): B37.7 - CANDIDAL SEPSIS SNOMED Code(s): 237847360 Plan: 1patient with a complicated urinary tract infection with evidence of bilateral kidney stone requiring cystoscopy and bilateral ureteral stent placement will need to call for the enteric gram-negative to be the likely pathogen 2-urine culture currently growing Enterococcus faecium that is resistant to ampicillin, blood culture positive for Vangie, 3-blood culture has been repeated document clearance of bacteremia 4-patient to continue with Eraxis discontinue ampicillin start the patient on daptomycin to cover for the Enterococcus faecium will likely need IV antibiotic on discharge Dictation was produced using [employer] dictation software. please excuse any grammatical, word or spelling errors. Time with Patient: Less than 30
--- NOTE | 2024-05-14 17:10 | CT ---
EXAMINATION TYPE: CT brain wo con CT DLP: 1072.4 mGycm, Automated exposure control for dose reduction was used. DATE OF EXAM: 05/14/2024 4:46 PM COMPARISON: None.. CLINICAL INDICATION:Female, 68 years old with history of stroke, Dizziness. TECHNIQUE: Brain: Axial CT images of the brain were obtained with coronal and sagittal reformats created and rev iewed. Contrast used: None. Oral contrast used: None. FINDINGS: Extra-axial spaces: No abnormal extra-axial fluid collections. Basilar cisterns are patent. Ventricular system: Ventricles appear dilated in proportion to the degree of cerebral atrophy. Cerebral parenchyma: No increased attenuation to suggest acute intraparenchymal hemorrhage. The gra y-white matter interface appears maintained without evidence of acute territorial infarct. Mild gene ralized brain atrophy. Scattered hypoattenuating areas are seen within the cerebral white matter, pr obably greatest in the frontal lobes right more than left, nonspecific but most often seen with chron ic microvascular ischemic changes; mild/moderate in degree. Streak artifact limits assessment of the brainstem. Cerebellum: No acute abnormality. Mass effect: No evidence of mass effect or midline shift. Intracranial vasculature: Atherosclerotic calcifications of the larger arteries near the skull base. Soft tissues: No acute or concerning abnormality. Visualized orbits: Orbital contents appear grossly intact. Calvarium/osseous structures: No evidence of calvarial fracture. Paranasal sinuses and mastoid air cells: Mild scattered paranasal sinus mucosal thickening without si gnificant fluid seen. Mastoid air cells are clear. MRI is more sensitive for detecting acute processes such as infarct, and may be considered if clinica lly warranted. IMPRESSION: 1. No CT evidence of an acute intracranial abnormality. 2. Mild atrophy and chronic microvascular ischemic white matter changes.
[2024-05-14 17:12] LABS: Glucose,Whole Blood 96 mg/dL (70-110)
[2024-05-14] MEDS: MIDODRINE 5 MG TAB PO SCH (17:18)
--- NOTE | 2024-05-14 17:26 | CT ---
EXAMINATION TYPE: CT abdomen pelvis wo con CT DLP: 1360.4 mGycm, Automated exposure control for dose reduction was used. DATE OF EXAM: 05/14/2024 4:46 PM COMPARISON: Outside CT 05/11/2024 CLINICAL INDICATION:Female, 68 years old with history of candidemia; Candidemia. TECHNIQUE: Axial CT of the abdomen and pelvis. Sagittal and coronal reformats were created on a [employer] workstation. Contrast used: mL of , (none if empty) Oral contrast used: with Oral Contrast FINDINGS: LOWER CHEST: Strandy opacity suggesting mild scarring or subsegmental atelectasis in the lung bases, greatest on the left. No pleural or pericardial effusion. Heart appears mildly enlarged. Slightly pat ulous distal esophagus. ABDOMEN LIVER: Unremarkable GALLBLADDER AND BILE DUCTS: The gallbladder is surgically absent. Biliary tree does not appear pathol ogically dilated. PANCREAS: Fatty infiltrated without acute finding. SPLEEN: Unremarkable. ADRENAL GLANDS: Mildly thickened, may be seen with hyperplasia.. KIDNEYS AND URETERS: Bilateral double-J ureteral stents are present in the expected positions. There is [id number] right and mild left residual hydronephrosis. No definite calculi are seen along t he course of the stents however there are 9 mm and 7 mm calculi within the dilated right renal pelvis . On the left, there is a calculus or calculus cluster measuring 8 mm within the renal pelvis, and a punctate calculus in the left lower pole. PELVIS BLADDER: Appears mostly decompressed with mild perivesical fat stranding. REPRODUCTIVE: Grossly unremarkable uterus. Stable 2.7 cm cystic lesion in the right pelvis anteriorly , likely related to the ovary. ABDOMEN & PELVIS STOMACH AND BOWEL: Contrast traverses the stomach and small bowel without evidence of obstruction or significant wall thickening. There is a 2.4 cm duodenal diverticulum. There is fatty infiltration of the ileocecal valve. Appendix is not identified with certainty, however there is no inflammatory proc ess seen in the RLQ. Couple of radiodensities within the cecum likely ingested material. Minimal stoo l throughout the colon with no focal acute abnormality suggested. PERITONEUM/RETROPERITONEUM: No evidence of pneumoperitoneum or free fluid. VASCULATURE: Mild to moderate atherosclerotic calcifications are present throughout the abdominal aor ta and its branches. No evidence of aortic aneurysm. IVC is normal caliber. LYMPH NODES: No enlarged nodes by CT size criteria. SOFT TISSUE/ABDOMINAL WALL: Small lobular fat containing umbilical region hernia. Subcutaneous tract of gas in the right anterior abdominal wall likely from medication injection. MUSCULOSKELETAL: No acute osseous abnormality is seen. There is moderate to severe degenerative leon e of the visualized spine, with mild to moderate spinal canal and neural foraminal stenoses suggested at several levels in the mid to lower lumbar region. IMPRESSION: 1. Bilateral double-J ureteral stents in place. 2. Mild to moderate right and mild left residual hydronephrosis. 3. Bilateral calculi within the renal pelvises. No definite calculi along the course of the stents o therwise. 4. Mild perivesical fat stranding, correlate clinically for cystitis. 5. No evidence of bowel wall pneumatosis, obstruction, or free air. Appendix not seen, but there is no sign of appendicitis. 6. Grossly stable 2.7 cm right pelvic cystic structure, likely related to the ovary. Outpatient ultr asound could further evaluate.
[2024-05-14] MEDS: DAPTOmycin 350 MG in SODIUM CHLORIDE 0.9% 50 ML IVPB SCH (17:56)
--- NOTE | 2024-05-15 00:22 | PN ---
PROGRESS NOTE DATE OF SERVICE: 05/14/2024 I am covering for Dr. Rose. SUBJECTIVE: This is a 68-year-old woman, who was admitted with UTI, hydronephrosis, and ureteral calculus, had bilateral ureteric stent placement. No chest pain. No palpitation. The urine culture showed group D Enterococcus and as well as blood culture showed Vangie albicans also. No chest pain. No palpitations. No fever. Infectious Disease is following the patient closely as well. PAST MEDICAL HISTORY: Reviewed. REVIEW OF SYSTEMS: A 14-point review is negative except as mentioned earlier. CURRENT MEDICATIONS: Reviewed include, 1. Unasyn. 2. Abilify. 3. Anidulafungin. Dose and rest of medications reviewed. PHYSICAL EXAMINATION: VITAL SIGNS: Pulse is 98, blood pressure 96/68, respirations 17. HEENT: Conjunctivae normal. NECK: No JVD. CARDIOVASCULAR: S1, S2. RESPIRATIONS: Breath sounds diminished at the bases. A few scattered rhonchi. ABDOMEN: Soft, obese, nontender. LEGS: No edema. NERVOUS SYSTEM: Nonfocal. LABORATORY DATA: Hemoglobin 10.2. Rest of the labs are noted. Potassium 3.3. ASSESSMENT: 1. Acute urinary tract infection with group D Enterococci. 2. Candidemia. 3. Hydronephrosis with bilateral ureteral stent placement. 4. Urinary tract infection. 5. History of pneumonia. 6. History of hypothyroidism. 7. Anxiety, bipolar, depression. 8. Multiple medical issues. RECOMMENDATIONS AND DISCUSSION: This is a 68-year-old woman, who presented with multiple complex medical issues, we will monitor the patient closely. Continue the current management and continue symptomatic treatment. Otherwise, to complete the workup. I would also recommend CT scan of the abdomen, pelvis, and as well as a 2D echo with Doppler also. Repeat blood cultures done on 05/11, shows no growth. I would repeat blood cultures also. See orders for further details. Prognosis extremely guarded because of multiple complex medical issues. Further recommendations to follow. MMODL / IJN: [id number] /
[2024-05-15 10:33] LABS: Basophils # (A) 0.06 X 10*3/uL (0.00-0.10); Basophils % (A) 0.8 %; Eosinophils # (A) 0.45 X 10*3/uL (0.04-0.35); HCT 36.1 % (37.2-46.3); HGB 11.3 g/dL (12.0-15.0); Lymphocytes # (A) 1.42 X 10*3/uL (0.90-5.00); MCH 27.4 pg (27.0-32.0); MCHC 31.3 g/dL (32.0-37.0); MCV 87.6 FL (80.0-97.0); Mean Platelet Volume 12.4 FL (9.5-12.2); NRBC Per 100 WBC 0 X 10*3/uL (0.00-0.01); Neutrophils # (A) 4.62 X 10*3/uL (1.80-7.70); Platelet Count 237 X 10*3/uL (140-440); RBC 4.12 X 10*6/uL (4.10-5.20); WBC 7.46 X 10*3/uL (4.50-10.00)
[2024-05-15 10:41] LABS: BUN/Creat Ratio 14.76 Ratio (12.00-20.00); Blood Urea Nitrogen 50.2 mg/dL (9.0-27.0); Glucose 104 mg/dL (70-110)
[2024-05-15 10:42] LABS: ALT 65 U/L (8-44); AST 56 U/L (13-35); Albumin 3.1 g/dL (3.8-4.9); Albumin/Globulin Ratio 0.97 Ratio (1.60-3.17); Alkaline Phosphatase 235 U/L (41-126); Calcium 8.7 mg/dL (8.7-10.3); Carbon Dioxide 26.8 mmol/L (21.6-31.8); Chloride 102 mmol/L (96-109); Globulin 3.2 g/dL (1.6-3.3); Potassium 3.9 mmol/L (3.5-5.5); Sodium 140 mmol/L (135-145); Total Bilirubin 0.2 mg/dL (0.3-1.2); Total Protein 6.3 g/dL (6.2-8.2)
[2024-05-15 12:34] LABS: Glucose,Whole Blood 87 mg/dL (70-110)
--- NOTE | 2024-05-15 13:50 | CA ---
Transthoracic Echo Report Name: Leisa Celestin Age: 68 Gender: F : 1955 Exam Date: 05/15/2024 10:15 Exam Location: [facility] Ht (in): 62 Wt (lb): 300 Ordering Physician: Martha Morales MD Attending/Referring Phys: Chief Growth Officer Dayana Guo RDCS Procedure CPT: Indications: candidemia Cardiac Hx: Technical Quality: Fair Contrast 1: Total Dose (mL): Contrast 2: Total Dose (mL): MEASUREMENTS (Male / Female) Normal Values 2D ECHO LV Diastolic Diameter PLAX 5.1 cm 4.2 - 5.9 / 3.9 - 5.3 cm LV Systolic Diameter PLAX 3.0 cm IVS Diastolic Thickness 1.2 cm 0.6 - 1.0 / 0.6 - 0.9 cm LVPW Diastolic Thickness 0.9 cm 0.6 - 1.0 / 0.6 - 0.9 cm LV Relative Wall Thickness 0.4 RV Internal Dim ED PLAX 2.2 cm LA Systolic Diameter LX 4.3 cm 3.0 - 4.0 / 2.7 - 3.8 cm LV Diastolic Volume MOD BP 53.2 cm??? 67 - 155 / 56 - 104 cm??? LV Systolic Volume MOD BP 21.6 cm??? 22 - 58 / 19 - 49 cm??? LV Ejection Fraction MOD BP 59.5 % >= 55 % LV Cardiac Index MOD BP 1037.4 cm???/min???m??? LV Diastolic Volume MOD 4C 52.9 cm??? LV Systolic Volume MOD 4C 19.1 cm??? LV Ejection Fraction MOD 4C 63.8 % LV Cardiac Index MOD 4C 1106.1 cm???/min???m??? LV Diastolic Length 4C 6.4 cm LV Systolic Length 4C 5.1 cm LV Diastolic Volume MOD 2C 50.4 cm??? LV Systolic Volume MOD 2C 24.1 cm??? LV Ejection Fraction MOD 2C 52.2 % LV Cardiac Index MOD 2C 861.2 cm???/min???m??? LV Diastolic Length 2C 6.0 cm LV Systolic Length 2C 5.5 cm LA Volume 78.7 cm??? 18 - 58 / 22 - 52 cm??? LA Volume Index 31.1 cm???/m??? 16 - 28 cm???/m??? M-MODE Aortic Root Diameter MM 2.7 cm LA Systolic Diameter MM 3.6 cm LA Ao Ratio MM 1.4 AV Cusp Separation MM 2.1 cm DOPPLER Mitral E Point Velocity 123.0 cm/s Mitral A Point Velocity 3.9 cm/s Mitral E to A Ratio 31.7 TR Peak Velocity 236.8 cm/s TR Peak Gradient 22.4 mmHg Right Ventricular Systolic Press 27.4 mmHg FINDINGS Left Ventricle Left ventricular ejection fraction is estimated at 55-60 %. Mildly increased septal wall thickness. Left ventricular cavity size normal. No obvious regional wall motion abnormalities. Right Ventricle Normal right ventricular size and function. Right ventricular systolic pressure within normal limits. Right Atrium Mild right atrial dilatation. Left Atrium Moderate left atrial dilatation. Mitral Valve Structurally normal mitral valve. Mild mitral regurgitation. Aortic Valve Trileaflet aortic valve. Diffuse thickening (sclerosis) of the aortic valve cusps without reduced excursion. No aortic regurgitation. Tricuspid Valve Structurally normal tricuspid valve. Mild tricuspid regurgitation. No tricuspid stenosis. Pulmonic Valve Structurally normal pulmonic valve. Trace pulmonic regurgitation. Pericardium Echo free space anterior to the right ventricle likely represents a fat pad. Aorta Normal size aortic root and proximal ascending aorta. CONCLUSIONS Left ventricular ejection fraction is estimated at 55-60 %. No obvious regional wall motion abnormalities. Mild concentric LVH Normal RV size and systolic function Moderate LA dilatation Mild MR Calcific thickening of aortic leaflet but no significant stenosis Epicardial fat Previewed by: Dr Valeriano Jefferson (Electronically Signed) Final Date: 15 May 2024 13:49
--- NOTE | 2024-05-15 16:30 | P.PN ---
Subjective Progress Note Date: 05/15/24 Principal diagnosis: Reason for follow-up is complicated UTI and candidemia sudheer is a 68-year-old female with a past medical history negative for diabetes mellitus reflux pneumonia thyroid disorder presenting to the hospital yesterday afternoon as a transfer from [facility] where the patient has been diagnosed with UTI and the patient was noticed to have worsening kidney function CT did shows evidence of kidney stone patient is status post bilateral ureteral stent placement. Blood cultures came back positive with Vangie. On today's evaluation that is 05/15/2024,the patient remains to be afebrile, patient is on room air not requiring supplemental oxygen and denies any shortness of breath no chest pain or cough.Patient denies having any nausea or vomiting, no abdominal pain and no diarrhea has been reported, no new symptoms. Patient white count is 7.46, creatinine 3.4 blood culture repeat pending Objective - Vital Signs Vital signs: Vital Signs Temp 97.4 F L 05/15/24 07:20 Pulse 85 05/15/24 09:55 Resp 17 05/15/24 07:20 BP 93/69 05/15/24 07:20 Pulse Ox 92 L 05/15/24 01:33 FiO2 Intake & Output 05/14/24 05/15/24 05/15/24 18:59 06:59 18:59 Intake Total 118 Output Total 18 Balance 100 Intake: Oral 118 Output: Urine 12 Stool 6 Other: Voiding Method Toilet Toilet Diaper Incontinent # Voids 6 1 1 # Bowel Movements 5 1 1 - Exam GENERAL DESCRIPTION: An elderly female up in the chair in no distress RESPIRATORY SYSTEM: Unlabored breathing , decreased breath sounds at bases HEART: S1 S2 regular rate and rhythm , ABDOMEN: Soft , no tenderness EXTREMITIES: No edema feet - Labs CBC & Chem 7: 05/15/24 07:12 05/15/24 07:12 Labs: Abnormal Lab Results - Last 24 Hours (Table) 05/15/24 05/15/24 Range/Units 07:12 07:12 Hgb 11.3 L (12.0-15.0) g/dL Hct 36.1 L (37.2-46.3) % MCHC 31.3 L (32.0-37.0) g/dL RDW 16.0 H (11.5-14.5) % MPV 12.4 H (9.5-12.2) FL Immature Gran # 0.31 H (0.00-0.04) X 10*3/uL Eosinophils # 0.45 H (0.04-0.35) X 10*3/uL BUN 50.2 H (9.0-27.0) mg/dL Creatinine 3.4 H (0.6-1.5) mg/dL Est GFR (CKD-EPI) 14 L (>=60) Total Bilirubin 0.2 L (0.3-1.2) mg/dL AST 56 H (13-35) U/L ALT 65 H (8-44) U/L Alkaline Phosphatase 235 H (41-126) U/L Albumin 3.1 L (3.8-4.9) g/dL Albumin/Globulin Ratio 0.97 L (1.60-3.17) Ratio Microbiology - Last 24 Hours (Table) 05/11/24 15:45 Blood Culture - Preliminary Blood 05/13/24 12:34 Blood Culture - Preliminary Blood 05/11/24 16:51 Urine Culture - Final Urine,Voided Enterococcus faecium Assessment and Plan (1) Complicated UTI (urinary tract infection) Current Visit: Yes Status: Acute Code(s): N39.0 - URINARY TRACT INFECTION, SITE NOT SPECIFIED SNOMED Code(s): 27639089 (2) Candidemia Current Visit: Yes Status: Acute Code(s): B37.7 - CANDIDAL SEPSIS SNOMED Code(s): 418764571 Plan: 1patient with a complicated urinary tract infection with evidence of bilateral kidney stone requiring cystoscopy and bilateral ureteral stent placement will need to call for the enteric gram-negative to be the likely pathogen 2-urine culture currently growing Enterococcus faecium that is resistant to ampicillin, blood culture positive for Vangie, 3-blood culture has been repeated and so far negative 4-patient to continue with Eraxis along with daptomycin to cover for the Enterococcus faecium and monitor clinical course closely Dictation was produced using [employer] dictation software. please excuse any grammatical, word or spelling errors. Time with Patient: Less than 30
--- NOTE | 2024-05-15 16:50 | P.PN ---
Subjective Patient is seen for follow-up for acute kidney injury. status post cystoscopy and bilateral ureteral stent placement for bilateral hydronephrosis and kidney stones on 05/11/2024. Currently maintained on IV bicarb. Patient sitting up in a bedside chair. She has had good urine output. Serum creatinine decreased to 3.4 mg/dL today. It was 4.7 on initial admission. Objective - Vital Signs Vital signs: Vital Signs Temp 97.9 F 05/15/24 13:00 Pulse 66 05/15/24 13:00 Resp 16 05/15/24 13:00 BP 118/71 05/15/24 13:00 Pulse Ox 92 L 05/15/24 01:33 FiO2 Intake & Output 05/14/24 05/15/24 05/15/24 18:59 06:59 18:59 Intake Total 118 360 Output Total 18 8 Balance 100 352 Intake: Oral 118 360 Output: Urine 12 4 Stool 6 4 Other: Voiding Method Toilet Toilet Diaper Incontinent # Voids 6 1 3 # Bowel Movements 5 1 4 - Exam patient is awake, comfortable Alert oriented 3 No acute distress Examination of the heart S1 and S2 Examination of the lungs bilateral breath sounds are heard Abdomen is soft nontender Examination of lower extremities shows trace edema [employer] exam grossly intact - Labs CBC & Chem 7: 05/15/24 07:12 05/15/24 07:12 Labs: Abnormal Lab Results - Last 24 Hours (Table) 05/15/24 05/15/24 Range/Units 07:12 07:12 Hgb 11.3 L (12.0-15.0) g/dL Hct 36.1 L (37.2-46.3) % MCHC 31.3 L (32.0-37.0) g/dL RDW 16.0 H (11.5-14.5) % MPV 12.4 H (9.5-12.2) FL Immature Gran # 0.31 H (0.00-0.04) X 10*3/uL Eosinophils # 0.45 H (0.04-0.35) X 10*3/uL BUN 50.2 H (9.0-27.0) mg/dL Creatinine 3.4 H (0.6-1.5) mg/dL Est GFR (CKD-EPI) 14 L (>=60) Total Bilirubin 0.2 L (0.3-1.2) mg/dL AST 56 H (13-35) U/L ALT 65 H (8-44) U/L Alkaline Phosphatase 235 H (41-126) U/L Albumin 3.1 L (3.8-4.9) g/dL Albumin/Globulin Ratio 0.97 L (1.60-3.17) Ratio Microbiology - Last 24 Hours (Table) 05/11/24 15:45 Blood Culture - Preliminary Blood 05/13/24 12:34 Blood Culture - Preliminary Blood 05/11/24 16:51 Urine Culture - Final Urine,Voided Enterococcus faecium Assessment and Plan Assessment: 1. Acute kidney injury, ATN secondary to sepsis and hypotension. Currently nonoliguric and improving. Patient is maintained on IV fluids. No nephrotoxic agents identified. 2. Sepsis with UTI, urine culture growing group D enterococcus and blood cultures growing Vangie. Maintained on antifungal and antibiotics and being followed by ID. 3. Bilateral hydronephrosis with bilateral nephrolithiasis, status post cystoscopy and bilateral ureteral stent placement 4. History of nephrolithiasis 5. Anion gap metabolic acidosis associated with acute kidney injury Plan: Continue IV fluids Continue midodrine Replace potassium. Repeat labs in a.m. Continue with antibiotics as per ID Avoid any other nephrotoxic agents.
[2024-05-15 16:54] LABS: Glucose,Whole Blood 116 mg/dL (70-110)
[2024-05-15 21:41] LABS: Glucose,Whole Blood 117 mg/dL (70-110)
--- NOTE | 2024-05-15 23:46 | PN ---
PROGRESS NOTE DATE OF SERVICE: 05/15/2024 I am covering for Dr. Rose. SUBJECTIVE: This is a 68-year-old woman, who was admitted with UTI, hydronephrosis, ureteral calculus, also had bilateral ureteric stent placement. The patient also had a candidemia. The patient had a CT of the brain done yesterday, which showed no acute abnormality with microvascular changes and abdominopelvic CAT scan was also done, which showed bilateral double-J ureteric stents and some residual hydronephrosis. Otherwise, no other acute abnormalities were noted. Pelvic cyst was also noted, which is stable. PAST MEDICAL HISTORY: Reviewed. REVIEW OF SYSTEMS: A 14-point review is negative except as mentioned earlier. CURRENT MEDICATIONS: Reviewed include daptomycin. Dose and rest of medications noted. PHYSICAL EXAMINATION: VITAL SIGNS: Pulse is 66, blood pressure 118/70, respirations 16. HEENT: Conjunctivae normal. NECK: No JVD. CARDIOVASCULAR: S1, S2. RESPIRATIONS: Breath sounds diminished at the bases. ABDOMEN: Soft, nontender. LEGS: No edema. NERVOUS SYSTEM: Nonfocal. LABORATORY DATA: Hemoglobin 11.3. Cultures are vancomycin sensitive Enterococcus faecium and Vangie albicans. ASSESSMENT: 1. Acute urinary tract infection with group D Enterococcus, vancomycin sensitive. 2. Candidemia. 3. Hydronephrosis with bilateral ureteral stent placement. 4. Urinary tract infection. 5. History of pneumonia. 6. History of hypothyroidism. 7. Anxiety, bipolar, depression. 8. Multiple medical issues. RECOMMENDATIONS AND DISCUSSION: I recommend to continue current management. Continue symptomatic treatment. Continue with antibiotics. Repeat labs. Urology and Infectious Disease evaluation appreciated. However, the patient might require outpatient IV antibiotics. A 2D echo with Doppler, which was done today, which was reviewed personally showed ejection fraction of 50% to 60%. No other abnormalities except calcific thickening of the aortic leaflet. We will repeat labs tomorrow. MMODL / IJN: [id number] /
[2024-05-16 05:54] LABS: Glucose,Whole Blood 115 mg/dL (70-110)
--- NOTE | 2024-05-16 07:14 | P.PN ---
Subjective Progress Note Date: 05/15/24 Principal diagnosis: UTI, hydronephrosis The patient is a 68-year-old white female admitted with recurrent UTIs. CT scan shows bilateral hydronephrosis with bilateral renal pelvic/UPJ calculi. She underwent bilateral ureteral stent insertion on May 11, 2024. She was found at that time to have purulent urine draining from the left kidney. Her flank pain has resolved but she is experiencing significant urinary frequency. She also reports frequent bowel movements overnight. Objective - Vital Signs Vital signs: Vital Signs Temp 97.4 F L 05/15/24 07:20 Pulse 85 05/15/24 07:20 Resp 17 05/15/24 07:20 BP 93/69 05/15/24 07:20 Pulse Ox 92 L 05/15/24 01:33 FiO2 Intake & Output 05/14/24 05/15/24 05/15/24 18:59 06:59 18:59 Intake Total 118 Output Total 18 Balance 100 Intake: Oral 118 Output: Urine 12 Stool 6 Other: Voiding Method Toilet Diaper Incontinent # Voids 6 1 # Bowel Movements 5 1 - Constitutional General appearance: Present: average body habitus, cooperative, no acute distress - Labs CBC & Chem 7: 05/15/24 07:12 05/15/24 07:12 Labs: Abnormal Lab Results - Last 24 Hours (Table) 05/14/24 05/14/24 Range/Units 05:26 05:26 RBC 3.81 L (4.10-5.20) X 10*6/uL Hgb 10.3 L (12.0-15.0) g/dL Hct 33.1 L (37.2-46.3) % MCHC 31.1 L (32.0-37.0) g/dL RDW 15.8 H (11.5-14.5) % MPV 12.3 H (9.5-12.2) FL Immature Gran # 0.33 H (0.00-0.04) X 10*3/uL Eosinophils # 0.48 H (0.04-0.35) X 10*3/uL Potassium 3.3 L (3.5-5.5) mmol/L Anion Gap 13.40 H (4.00-12.00) mmol/L BUN 60.6 H (9.0-27.0) mg/dL Creatinine 3.7 H (0.6-1.5) mg/dL Est GFR (CKD-EPI) 13 L (>=60) Glucose 122 H (70-110) mg/dL Calcium 8.0 L (8.7-10.3) mg/dL Total Bilirubin <0.2 L (0.3-1.2) mg/dL AST 90 H (13-35) U/L ALT 83 H (8-44) U/L Alkaline Phosphatase 231 H (41-126) U/L Total Protein 5.5 L (6.2-8.2) g/dL Albumin 2.8 L (3.8-4.9) g/dL Albumin/Globulin Ratio 1.04 L (1.60-3.17) Ratio Microbiology - Last 24 Hours (Table) 05/11/24 15:45 Blood Culture - Preliminary Blood 05/13/24 12:34 Blood Culture - Preliminary Blood 05/11/24 16:51 Urine Culture - Final Urine,Voided Enterococcus faecium Assessment and Plan Assessment: Urine culture obtained at [facility] on April 07, 2024 showed Vangie. Blood cultures obtained May 11, 2024 at [facility] and [facility] both show Vangie. Urine culture obtained upon admission shows group D Enterococcus. (1) Urinary tract infection Current Visit: Yes Status: Acute Code(s): N39.0 - URINARY TRACT INFECTION, SITE NOT SPECIFIED SNOMED Code(s): 56641157 (2) Hydronephrosis with renal and ureteral calculous obstruction Current Visit: Yes Status: Acute Code(s): N13.2 - HYDRONEPHROSIS WITH RENAL AND URETERAL CALCULOUS OBSTRUCTION SNOMED Code(s): 522497407 Plan: - Continue Anidulafungin and Daptomycin - Continue Oxybutynin chloride - Will need bilateral ureteroscopy with removal of renal calculi and ureteral stents once her infection has cleared.
[2024-05-16 09:21] LABS: Basophils # (A) 0.09 X 10*3/uL (0.00-0.10); Eosinophils # (A) 0.61 X 10*3/uL (0.04-0.35); Eosinophils % (A) 6.9 %; HCT 31.6 % (37.2-46.3); Lymphocytes # (A) 1.66 X 10*3/uL (0.90-5.00); Lymphocytes % (A) 18.8 %; MCH 28.2 pg (27.0-32.0); MCHC 31.6 g/dL (32.0-37.0); MCV 89.3 FL (80.0-97.0); Mean Platelet Volume 12.4 FL (9.5-12.2); Monocytes # (A) 0.75 X 10*3/uL (0.20-1.00); Monocytes % (A) 8.5 %; NRBC Per 100 WBC 0 X 10*3/uL (0.00-0.01); Neutrophils # (A) 5.36 X 10*3/uL (1.80-7.70); Neutrophils % (A) 60.7 %; Platelet Count 226 X 10*3/uL (140-440); RBC 3.54 X 10*6/uL (4.10-5.20); RDW 15.9 % (11.5-14.5); WBC 8.83 X 10*3/uL (4.50-10.00)
--- NOTE | 2024-05-16 10:29 | P.PN ---
Subjective Patient is seen in follow-up for acute kidney injury. Renal function improving. Oral intake fair. Denies vomiting. Does admit to loose bowel movements. Nonoliguric. Vital signs are stable. General: No acute distress. Sitting up in chair. HEENT: Head exam is unremarkable. LUNGS: No audible rhonchi or wheezes. HEART: Rate and Rhythm are regular. ABDOMEN: Obese, nontender. EXTREMITITES: Trace edema. Objective - Vital Signs Vital signs: Vital Signs Temp 98.0 F 05/16/24 07:48 Pulse 73 05/16/24 07:48 Resp 18 05/16/24 07:48 BP 108/69 05/16/24 07:48 Pulse Ox 94 L 05/16/24 07:48 FiO2 Intake & Output 05/15/24 05/16/24 05/16/24 18:59 06:59 18:59 Intake Total 360 Output Total 8 800 Balance 352 -800 Intake: Oral 360 Output: Urine 4 800 Stool 4 Other: Voiding Method Toilet # Voids 5 3 # Bowel Movements 1 1 2 - Labs CBC & Chem 7: 05/16/24 06:16 05/15/24 07:12 Labs: Abnormal Lab Results - Last 24 Hours (Table) 05/15/24 05/15/24 05/15/24 Range/Units 07:12 07:12 16:53 RBC (4.10-5.20) X 10*6/uL Hgb 11.3 L (12.0-15.0) g/dL Hct 36.1 L (37.2-46.3) % MCHC 31.3 L (32.0-37.0) g/dL RDW 16.0 H (11.5-14.5) % MPV 12.4 H (9.5-12.2) FL Immature Gran # 0.31 H (0.00-0.04) X 10*3/uL Eosinophils # 0.45 H (0.04-0.35) X 10*3/uL BUN 50.2 H (9.0-27.0) mg/dL Creatinine 3.4 H (0.6-1.5) mg/dL Est GFR (CKD-EPI) 14 L (>=60) POC Glucose (mg/dL) 116 H (70-110) mg/dL Total Bilirubin 0.2 L (0.3-1.2) mg/dL AST 56 H (13-35) U/L ALT 65 H (8-44) U/L Alkaline Phosphatase 235 H (41-126) U/L Albumin 3.1 L (3.8-4.9) g/dL Albumin/Globulin Ratio 0.97 L (1.60-3.17) Ratio 05/15/24 05/16/24 05/16/24 Range/Units 21:39 05:52 06:16 RBC 3.54 L (4.10-5.20) X 10*6/uL Hgb 10.0 L (12.0-15.0) g/dL Hct 31.6 L (37.2-46.3) % MCHC 31.6 L (32.0-37.0) g/dL RDW 15.9 H (11.5-14.5) % MPV 12.4 H (9.5-12.2) FL Immature Gran # 0.36 H (0.00-0.04) X 10*3/uL Eosinophils # 0.61 H (0.04-0.35) X 10*3/uL BUN (9.0-27.0) mg/dL Creatinine (0.6-1.5) mg/dL Est GFR (CKD-EPI) (>=60) POC Glucose (mg/dL) 117 H 115 H (70-110) mg/dL Total Bilirubin (0.3-1.2) mg/dL AST (13-35) U/L ALT (8-44) U/L Alkaline Phosphatase (41-126) U/L Albumin (3.8-4.9) g/dL Albumin/Globulin Ratio (1.60-3.17) Ratio Microbiology - Last 24 Hours (Table) 05/14/24 15:30 Blood Culture - Preliminary Blood 05/13/24 12:34 Blood Culture - Preliminary Blood Assessment and Plan Plan: Assessment: 1. Acute kidney injury secondary to ATN secondary to severe sepsis. Creatinine 4.7 on admission and down to 3.4 as of yesterday. 2. Chronic kidney disease stage IIIa with baseline creatinine 1.1-1.2 in January 2018. 3. Vangie bacteremia and Enterococcus UTI on antibiotics and antifungal. ID following. 4. Bilateral hydronephrosis with nephrolithiasis status post cystoscopy and bilateral ureteral stents placement in April 2024. Urology following 5. Metabolic acidosis secondary to acute kidney injury. Improved. Plan: Maintain IV fluids. Avoid nephrotoxins. Continue to monitor renal function and urine output. Encourage oral intake.
[2024-05-16 11:13] LABS: BUN/Creat Ratio 13.74 Ratio (12.00-20.00); Blood Urea Nitrogen 42.6 mg/dL (9.0-27.0); Calcium 8.2 mg/dL (8.7-10.3); Carbon Dioxide 27.6 mmol/L (21.6-31.8); Chloride 106 mmol/L (96-109); Glucose 102 mg/dL (70-110); Potassium 4.2 mmol/L (3.5-5.5); Sodium 144 mmol/L (135-145)
[2024-05-16 11:30] LABS: Glucose,Whole Blood 96 mg/dL (70-110)
--- NOTE | 2024-05-16 15:06 | P.PN ---
Subjective Progress Note Date: 05/16/24 Principal diagnosis: UTI, hydronephrosis The patient is a 68-year-old white female admitted with recurrent UTIs. CT scan shows bilateral hydronephrosis with bilateral renal pelvic/UPJ calculi. She underwent bilateral ureteral stent insertion on May 11, 2024. She was found at that time to have purulent urine draining from the left kidney. Her flank pain has resolved but she is experiencing significant urinary frequency. She reports mild dysuria. Objective - Vital Signs Vital signs: Vital Signs Temp 97.5 F L 05/16/24 02:00 Pulse 71 05/16/24 02:00 Resp 17 05/16/24 02:00 BP 92/60 05/16/24 02:00 Pulse Ox 94 L 05/16/24 02:00 FiO2 Intake & Output 05/15/24 05/16/24 05/16/24 18:59 06:59 18:59 Intake Total 360 Output Total 8 800 Balance 352 -800 Intake: Oral 360 Output: Urine 4 800 Stool 4 Other: Voiding Method Toilet # Voids 5 # Bowel Movements 1 1 - Constitutional General appearance: Present: average body habitus, cooperative, no acute distress - Psychiatric Psychiatric: Present: A&O x's 3 - Labs CBC & Chem 7: 05/16/24 06:16 05/16/24 06:16 Labs: Abnormal Lab Results - Last 24 Hours (Table) 05/15/24 05/15/24 05/15/24 Range/Units 07:12 07:12 16:53 Hgb 11.3 L (12.0-15.0) g/dL Hct 36.1 L (37.2-46.3) % MCHC 31.3 L (32.0-37.0) g/dL RDW 16.0 H (11.5-14.5) % MPV 12.4 H (9.5-12.2) FL Immature Gran # 0.31 H (0.00-0.04) X 10*3/uL Eosinophils # 0.45 H (0.04-0.35) X 10*3/uL BUN 50.2 H (9.0-27.0) mg/dL Creatinine 3.4 H (0.6-1.5) mg/dL Est GFR (CKD-EPI) 14 L (>=60) POC Glucose (mg/dL) 116 H (70-110) mg/dL Total Bilirubin 0.2 L (0.3-1.2) mg/dL AST 56 H (13-35) U/L ALT 65 H (8-44) U/L Alkaline Phosphatase 235 H (41-126) U/L Albumin 3.1 L (3.8-4.9) g/dL Albumin/Globulin Ratio 0.97 L (1.60-3.17) Ratio 05/15/24 05/16/24 Range/Units 21:39 05:52 Hgb (12.0-15.0) g/dL Hct (37.2-46.3) % MCHC (32.0-37.0) g/dL RDW (11.5-14.5) % MPV (9.5-12.2) FL Immature Gran # (0.00-0.04) X 10*3/uL Eosinophils # (0.04-0.35) X 10*3/uL BUN (9.0-27.0) mg/dL Creatinine (0.6-1.5) mg/dL Est GFR (CKD-EPI) (>=60) POC Glucose (mg/dL) 117 H 115 H (70-110) mg/dL Total Bilirubin (0.3-1.2) mg/dL AST (13-35) U/L ALT (8-44) U/L Alkaline Phosphatase (41-126) U/L Albumin (3.8-4.9) g/dL Albumin/Globulin Ratio (1.60-3.17) Ratio Microbiology - Last 24 Hours (Table) 05/14/24 15:30 Blood Culture - Preliminary Blood 05/13/24 12:34 Blood Culture - Preliminary Blood Assessment and Plan (1) Urinary tract infection Current Visit: Yes Status: Acute Code(s): N39.0 - URINARY TRACT INFECTION, SITE NOT SPECIFIED SNOMED Code(s): 66169433 (2) Hydronephrosis with renal and ureteral calculous obstruction Current Visit: Yes Status: Acute Code(s): N13.2 - HYDRONEPHROSIS WITH RENAL AND URETERAL CALCULOUS OBSTRUCTION SNOMED Code(s): 339583504 Plan: - Continue Anidulafungin and Daptomycin - Continue Oxybutynin chloride - Will need bilateral ureteroscopy with removal of renal calculi and ureteral stents once her infection has cleared.
--- NOTE | 2024-05-16 15:22 | P.PN ---
Subjective Progress Note Date: 05/16/24 Principal diagnosis: Reason for follow-up is complicated UTI and candidemia sudheer is a 68-year-old female with a past medical history negative for diabetes mellitus reflux pneumonia thyroid disorder presenting to the hospital yesterday afternoon as a transfer from [facility] where the patient has been diagnosed with UTI and the patient was noticed to have worsening kidney function CT did shows evidence of kidney stone patient is status post bilateral ureteral stent placement. Blood cultures came back positive with Vangie. On today's evaluation that is 05/16/2024, the patient continues to be afebrile, the patient is on room air and breathing comfortably, the Pt denies having any chest pain or cough, the patient denies having any abdominal pain no vomiting however has been complaining of diarrhea with multiple loose stools. Patient white count is 8.83, creatinine 3 point 1 repeat blood culture 4 negative Objective - Vital Signs Vital signs: Vital Signs Temp 98.1 F 05/16/24 14:00 Pulse 54 L 05/16/24 14:00 Resp 17 05/16/24 14:00 BP 113/73 05/16/24 14:00 Pulse Ox 100 05/16/24 14:00 FiO2 Intake & Output 05/15/24 05/16/24 05/16/24 18:59 06:59 18:59 Intake Total 360 Output Total 8 800 Balance 352 -800 Intake: Oral 360 Output: Urine 4 800 Stool 4 Other: Voiding Method Toilet # Voids 5 3 # Bowel Movements 1 1 2 - Exam GENERAL DESCRIPTION: An elderly female up in the chair in no distress RESPIRATORY SYSTEM: Unlabored breathing , decreased breath sounds at bases HEART: S1 S2 regular rate and rhythm , ABDOMEN: Soft , no tenderness EXTREMITIES: No edema feet - Labs CBC & Chem 7: 05/16/24 06:16 05/16/24 06:16 Labs: Abnormal Lab Results - Last 24 Hours (Table) 05/15/24 05/15/24 05/16/24 Range/Units 16:53 21:39 05:52 RBC (4.10-5.20) X 10*6/uL Hgb (12.0-15.0) g/dL Hct (37.2-46.3) % MCHC (32.0-37.0) g/dL RDW (11.5-14.5) % MPV (9.5-12.2) FL Immature Gran # (0.00-0.04) X 10*3/uL Eosinophils # (0.04-0.35) X 10*3/uL BUN (9.0-27.0) mg/dL Creatinine (0.6-1.5) mg/dL Est GFR (CKD-EPI) (>=60) POC Glucose (mg/dL) 116 H 117 H 115 H (70-110) mg/dL Calcium (8.7-10.3) mg/dL 05/16/24 05/16/24 Range/Units 06:16 06:16 RBC 3.54 L (4.10-5.20) X 10*6/uL Hgb 10.0 L (12.0-15.0) g/dL Hct 31.6 L (37.2-46.3) % MCHC 31.6 L (32.0-37.0) g/dL RDW 15.9 H (11.5-14.5) % MPV 12.4 H (9.5-12.2) FL Immature Gran # 0.36 H (0.00-0.04) X 10*3/uL Eosinophils # 0.61 H (0.04-0.35) X 10*3/uL BUN 42.6 H (9.0-27.0) mg/dL Creatinine 3.1 H (0.6-1.5) mg/dL Est GFR (CKD-EPI) 16 L (>=60) POC Glucose (mg/dL) (70-110) mg/dL Calcium 8.2 L (8.7-10.3) mg/dL Microbiology - Last 24 Hours (Table) 05/14/24 15:30 Blood Culture - Preliminary Blood 05/13/24 12:34 Blood Culture - Preliminary Blood Assessment and Plan (1) Complicated UTI (urinary tract infection) Current Visit: Yes Status: Acute Code(s): N39.0 - URINARY TRACT INFECTION, SITE NOT SPECIFIED SNOMED Code(s): 94131041 (2) Candidemia Current Visit: Yes Status: Acute Code(s): B37.7 - CANDIDAL SEPSIS SNOMED Code(s): 578592590 (3) Diarrhea Current Visit: Yes Status: Acute Code(s): R19.7 - DIARRHEA, UNSPECIFIED SNOMED Code(s): 11248175 Plan: 1patient with a complicated urinary tract infection with evidence of bilateral kidney stone requiring cystoscopy and bilateral ureteral stent placement will need to call for the enteric gram-negative to be the likely pathogen 2-urine culture currently growing Enterococcus faecium that is resistant to ampicillin, blood culture positive for Vangie, 3-blood culture has been repeated and so far negative 4-patient to continue with Eraxis along with daptomycin to cover for the Enterococcus faecium 5-with significant diarrhea we will add Questran for symptomatic relief clinical doubt C. difficile with normal white count Dictation was produced using [employer] dictation software. please excuse any grammatical, word or spelling errors. Time with Patient: Less than 30
[2024-05-16 16:26] LABS: Glucose,Whole Blood 121 mg/dL (70-110)
[2024-05-16] MEDS: CHOLESTYRAMINE (WITH SUGAR) 4 GM PACKET PO SCH (17:12)
--- NOTE | 2024-05-16 20:30 | PN ---
PROGRESS NOTE DATE OF SERVICE: 05/16/2024 SUBJECTIVE: This 68-year-old woman who was admitted with UTI and as well as possible candidemia, is being closely monitored. No chest pain. No palpitation. Most recent cultures are negative. EXAM: VITAL SIGNS: Pulse is 54, blood pressure 113/70, respirations 17. CHEST: Clear to auscultation. CARDIOVASCULAR: S1, S2. ABDOMEN: Soft. No hepatosplenomegaly. LABORATORY DATA: Reviewed. Hemoglobin 10. Creatinine is 3.1. ASSESSMENT: 1. Acute urinary tract infection with group D Enterococcus, vancomycin sensitivity. 2. Candidemia. 3. Hydronephrosis with bilateral ureteral stent placement. 4. Elevated creatinine. 5. Urinary tract infection. 6. Multiple medical issues. RECOMMENDATIONS: Continue current medications, symptomatic treatment. Otherwise, repeat labs. Closely follow with multiple consultants. Continue the antibiotics, antifungals. Guarded prognosis. Further recommendations to follow. MMODL / IJN: [id number] /
[2024-05-16 20:32] LABS: Glucose,Whole Blood 121 mg/dL (70-110)
[2024-05-17 06:19] LABS: Glucose,Whole Blood 83 mg/dL (70-110)
[2024-05-17 09:24] LABS: Basophils # (A) 0.08 X 10*3/uL (0.00-0.10); Basophils % (A) 0.7 %; Eosinophils # (A) 0.75 X 10*3/uL (0.04-0.35); Eosinophils % (A) 6.8 %; HGB 9.5 g/dL (12.0-15.0); Lymphocytes # (A) 2.08 X 10*3/uL (0.90-5.00); Lymphocytes % (A) 18.9 %; MCH 28.1 pg (27.0-32.0); MCHC 30.6 g/dL (32.0-37.0); MCV 91.7 FL (80.0-97.0); Mean Platelet Volume 12.3 FL (9.5-12.2); Monocytes # (A) 1.01 X 10*3/uL (0.20-1.00); Monocytes % (A) 9.2 %; NRBC Per 100 WBC 0 X 10*3/uL (0.00-0.01); Neutrophils # (A) 6.69 X 10*3/uL (1.80-7.70); Neutrophils % (A) 60.9 %; Platelet Count 233 X 10*3/uL (140-440); RBC 3.38 X 10*6/uL (4.10-5.20); RDW 16.2 % (11.5-14.5)
--- NOTE | 2024-05-17 10:47 | P.PN ---
Subjective Patient is seen in follow-up for acute kidney injury. Renal function improving. Oral intake fair. Denies vomiting. No diarrhea today. Admits to good urine output. Vital signs are stable. General: No acute distress. Sitting up in chair. HEENT: Head exam is unremarkable. LUNGS: No audible rhonchi or wheezes. HEART: Rate and Rhythm are regular. ABDOMEN: Obese, nontender. EXTREMITITES: Trace edema. Objective - Vital Signs Vital signs: Vital Signs Temp 97.5 F L 05/17/24 06:54 Pulse 65 05/17/24 06:54 Resp 18 05/17/24 10:21 BP 123/69 05/17/24 06:54 Pulse Ox 97 05/17/24 06:54 FiO2 Intake & Output 05/16/24 05/17/24 05/17/24 18:59 06:59 18:59 Intake Total 250 Output Total 750 4 Balance -750 246 Intake: Oral 250 Output: Urine 750 Stool 4 Other: Voiding Method Toilet Toilet # Voids 3 1 # Bowel Movements 2 - Labs CBC & Chem 7: 05/17/24 03:58 05/16/24 06:16 Labs: Abnormal Lab Results - Last 24 Hours (Table) 05/16/24 05/16/24 05/16/24 Range/Units 06:16 16:24 20:30 WBC (4.50-10.00) X 10*3/uL RBC (4.10-5.20) X 10*6/uL Hgb (12.0-15.0) g/dL Hct (37.2-46.3) % MCHC (32.0-37.0) g/dL RDW (11.5-14.5) % MPV (9.5-12.2) FL Immature Gran # (0.00-0.04) X 10*3/uL Monocytes # (0.20-1.00) X 10*3/uL Eosinophils # (0.04-0.35) X 10*3/uL BUN 42.6 H (9.0-27.0) mg/dL Creatinine 3.1 H (0.6-1.5) mg/dL Est GFR (CKD-EPI) 16 L (>=60) POC Glucose (mg/dL) 121 H 121 H (70-110) mg/dL Calcium 8.2 L (8.7-10.3) mg/dL 05/17/24 Range/Units 03:58 WBC 11.00 H (4.50-10.00) X 10*3/uL RBC 3.38 L (4.10-5.20) X 10*6/uL Hgb 9.5 L (12.0-15.0) g/dL Hct 31.0 L (37.2-46.3) % MCHC 30.6 L (32.0-37.0) g/dL RDW 16.2 H (11.5-14.5) % MPV 12.3 H (9.5-12.2) FL Immature Gran # 0.39 H (0.00-0.04) X 10*3/uL Monocytes # 1.01 H (0.20-1.00) X 10*3/uL Eosinophils # 0.75 H (0.04-0.35) X 10*3/uL BUN (9.0-27.0) mg/dL Creatinine (0.6-1.5) mg/dL Est GFR (CKD-EPI) (>=60) POC Glucose (mg/dL) (70-110) mg/dL Calcium (8.7-10.3) mg/dL Microbiology - Last 24 Hours (Table) 05/14/24 15:30 Blood Culture - Preliminary Blood 05/11/24 15:45 Blood Culture - Final Blood 05/13/24 12:34 Blood Culture - Preliminary Blood Assessment and Plan Plan: Assessment: 1. Acute kidney injury secondary to ATN secondary to severe sepsis. Creatinine 4.7 on admission and down to 3.1 as of yesterday. 2. Chronic kidney disease stage IIIa with baseline creatinine 1.1-1.2 in January 2018. 3. Vangie bacteremia and Enterococcus UTI on antibiotics and antifungal. ID following. 4. Bilateral hydronephrosis with nephrolithiasis status post cystoscopy and bilateral ureteral stents placement in April 2024. Urology following 5. Metabolic acidosis secondary to acute kidney injury. Improved. Plan: Maintain IV fluids. Avoid nephrotoxins. Continue to monitor renal function and urine output. Encourage oral intake.
[2024-05-17 10:56] LABS: Magnesium 1.4 mg/dL (1.5-2.4)
[2024-05-17 11:29] LABS: Glucose,Whole Blood 98 mg/dL (70-110)
[2024-05-17 11:45] LABS: BUN/Creat Ratio 12.57 Ratio (12.00-20.00); Blood Urea Nitrogen 35.2 mg/dL (9.0-27.0); Calcium 8.6 mg/dL (8.7-10.3); Carbon Dioxide 25.1 mmol/L (21.6-31.8); Chloride 106 mmol/L (96-109); Glucose 105 mg/dL (70-110); Potassium 3.9 mmol/L (3.5-5.5); Sodium 142 mmol/L (135-145)
[2024-05-17] MEDS: MAGNESIUM SULFATE-D5W PMX 1 GM in DEXTROSE/WATER 1 100ML.BAG IVPB SCH (12:24)
[2024-05-17] MEDS: MAGNESIUM OXIDE 400 MG TAB PO SCH (12:49)
--- NOTE | 2024-05-17 13:23 | P.PN ---
Subjective Progress Note Date: 05/17/24 Principal diagnosis: UTI, hydronephrosis The patient is a 68-year-old white female admitted with recurrent UTIs. CT scan shows bilateral hydronephrosis with bilateral renal pelvic/UPJ calculi. She underwent bilateral ureteral stent insertion on May 11, 2024. She was found at that time to have purulent urine draining from the left kidney. Her flank pain has resolved but she is experiencing significant urinary frequency. She reports mild dysuria but overall is feeling much better. Objective - Vital Signs Vital signs: Vital Signs Temp 97.5 F L 05/17/24 06:54 Pulse 65 05/17/24 06:54 Resp 18 05/17/24 10:21 BP 123/69 05/17/24 06:54 Pulse Ox 97 05/17/24 06:54 FiO2 Intake & Output 05/16/24 05/17/24 05/17/24 18:59 06:59 18:59 Intake Total 550 Output Total 750 4 Balance -750 546 Intake: Oral 550 Output: Urine 750 Stool 4 Other: Voiding Method Toilet Toilet # Voids 3 1 # Bowel Movements 2 - Constitutional General appearance: Present: average body habitus, cooperative, no acute distress - Psychiatric Psychiatric: Present: A&O x's 3 - Labs CBC & Chem 7: 05/17/24 03:58 05/17/24 03:58 Labs: Abnormal Lab Results - Last 24 Hours (Table) 05/16/24 05/16/24 05/17/24 Range/Units 16:24 20:30 03:58 WBC (4.50-10.00) X 10*3/uL RBC (4.10-5.20) X 10*6/uL Hgb (12.0-15.0) g/dL Hct (37.2-46.3) % MCHC (32.0-37.0) g/dL RDW (11.5-14.5) % MPV (9.5-12.2) FL Immature Gran # (0.00-0.04) X 10*3/uL Monocytes # (0.20-1.00) X 10*3/uL Eosinophils # (0.04-0.35) X 10*3/uL BUN 35.2 H (9.0-27.0) mg/dL Creatinine 2.8 H (0.6-1.5) mg/dL Est GFR (CKD-EPI) 18 L (>=60) POC Glucose (mg/dL) 121 H 121 H (70-110) mg/dL Calcium 8.6 L (8.7-10.3) mg/dL Magnesium 1.4 L (1.5-2.4) mg/dL 05/17/24 Range/Units 03:58 WBC 11.00 H (4.50-10.00) X 10*3/uL RBC 3.38 L (4.10-5.20) X 10*6/uL Hgb 9.5 L (12.0-15.0) g/dL Hct 31.0 L (37.2-46.3) % MCHC 30.6 L (32.0-37.0) g/dL RDW 16.2 H (11.5-14.5) % MPV 12.3 H (9.5-12.2) FL Immature Gran # 0.39 H (0.00-0.04) X 10*3/uL Monocytes # 1.01 H (0.20-1.00) X 10*3/uL Eosinophils # 0.75 H (0.04-0.35) X 10*3/uL BUN (9.0-27.0) mg/dL Creatinine (0.6-1.5) mg/dL Est GFR (CKD-EPI) (>=60) POC Glucose (mg/dL) (70-110) mg/dL Calcium (8.7-10.3) mg/dL Magnesium (1.5-2.4) mg/dL Microbiology - Last 24 Hours (Table) 05/14/24 15:30 Blood Culture - Preliminary Blood 05/11/24 15:45 Blood Culture - Final Blood 05/13/24 12:34 Blood Culture - Preliminary Blood Assessment and Plan Assessment: Urine culture obtained at [facility] on April 07, 2024 showed Vangie. Blood cultures obtained May 11, 2024 at [facility] and [facility] both show Vangie. Urine culture obtained upon admission shows group D Enterococcus. (1) Urinary tract infection Current Visit: Yes Status: Acute Code(s): N39.0 - URINARY TRACT INFECTION, SITE NOT SPECIFIED SNOMED Code(s): 68036523 (2) Hydronephrosis with renal and ureteral calculous obstruction Current Visit: Yes Status: Acute Code(s): N13.2 - HYDRONEPHROSIS WITH RENAL AND URETERAL CALCULOUS OBSTRUCTION SNOMED Code(s): 752779746 Plan: - Continue Anidulafungin, Daptomycin, and Eraxis - Continue Oxybutynin chloride -Arrangements are being made for her to undergo bilateral ureteroscopy with removal of renal calculi and ureteral stents once her infection has cleared
--- NOTE | 2024-05-17 16:15 | P.PN ---
Subjective Progress Note Date: 05/17/24 Principal diagnosis: Reason for follow-up is complicated UTI and candidemia sudheer is a 68-year-old female with a past medical history negative for diabetes mellitus reflux pneumonia thyroid disorder presenting to the hospital yesterday afternoon as a transfer from [facility] where the patient has been diagnosed with UTI and the patient was noticed to have worsening kidney function CT did shows evidence of kidney stone patient is status post bilateral ureteral stent placement. Blood cultures came back positive with Vangie. On today's evaluation that is 05/17/2024, Patient is afebrile patient is currently on room air and denies having any shortness of breath, the patient denies any chest pain or cough, the patient denies any nausea vomiting did not have any abdominal pain and no diarrhea seem to have problems with IV access this morning. Patient white count is 11,000 creatinine is 2.8 blood culture repeat has been negative Objective - Vital Signs Vital signs: Vital Signs Temp 97.4 F L 05/17/24 12:51 Pulse 58 L 05/17/24 12:51 Resp 16 05/17/24 12:51 BP 116/78 05/17/24 12:51 Pulse Ox 100 05/17/24 12:51 FiO2 Intake & Output 05/16/24 05/17/24 05/17/24 18:59 06:59 18:59 Intake Total 550 Output Total 750 5 Balance -750 545 Intake: Oral 550 Output: Urine 750 1 Stool 4 Other: Voiding Method Toilet Toilet # Voids 3 1 # Bowel Movements 2 2 - Exam GENERAL DESCRIPTION: An elderly female up in the chair in no distress RESPIRATORY SYSTEM: Unlabored breathing , decreased breath sounds at bases HEART: S1 S2 regular rate and rhythm , ABDOMEN: Soft , no tenderness EXTREMITIES: No edema feet - Labs CBC & Chem 7: 05/17/24 03:58 05/17/24 03:58 Labs: Abnormal Lab Results - Last 24 Hours (Table) 05/16/24 05/16/24 05/17/24 Range/Units 16:24 20:30 03:58 WBC (4.50-10.00) X 10*3/uL RBC (4.10-5.20) X 10*6/uL Hgb (12.0-15.0) g/dL Hct (37.2-46.3) % MCHC (32.0-37.0) g/dL RDW (11.5-14.5) % MPV (9.5-12.2) FL Immature Gran # (0.00-0.04) X 10*3/uL Monocytes # (0.20-1.00) X 10*3/uL Eosinophils # (0.04-0.35) X 10*3/uL BUN 35.2 H (9.0-27.0) mg/dL Creatinine 2.8 H (0.6-1.5) mg/dL Est GFR (CKD-EPI) 18 L (>=60) POC Glucose (mg/dL) 121 H 121 H (70-110) mg/dL Calcium 8.6 L (8.7-10.3) mg/dL Magnesium 1.4 L (1.5-2.4) mg/dL 05/17/24 Range/Units 03:58 WBC 11.00 H (4.50-10.00) X 10*3/uL RBC 3.38 L (4.10-5.20) X 10*6/uL Hgb 9.5 L (12.0-15.0) g/dL Hct 31.0 L (37.2-46.3) % MCHC 30.6 L (32.0-37.0) g/dL RDW 16.2 H (11.5-14.5) % MPV 12.3 H (9.5-12.2) FL Immature Gran # 0.39 H (0.00-0.04) X 10*3/uL Monocytes # 1.01 H (0.20-1.00) X 10*3/uL Eosinophils # 0.75 H (0.04-0.35) X 10*3/uL BUN (9.0-27.0) mg/dL Creatinine (0.6-1.5) mg/dL Est GFR (CKD-EPI) (>=60) POC Glucose (mg/dL) (70-110) mg/dL Calcium (8.7-10.3) mg/dL Magnesium (1.5-2.4) mg/dL Microbiology - Last 24 Hours (Table) 05/14/24 15:30 Blood Culture - Preliminary Blood 05/11/24 15:45 Blood Culture - Final Blood 05/13/24 12:34 Blood Culture - Preliminary Blood Assessment and Plan (1) Complicated UTI (urinary tract infection) Current Visit: Yes Status: Acute Code(s): N39.0 - URINARY TRACT INFECTION, SITE NOT SPECIFIED SNOMED Code(s): 68126960 (2) Candidemia Current Visit: Yes Status: Acute Code(s): B37.7 - CANDIDAL SEPSIS SNOMED Code(s): 903321688 (3) Diarrhea Current Visit: Yes Status: Acute Code(s): R19.7 - DIARRHEA, UNSPECIFIED SNOMED Code(s): 51265124 Plan: 1patient with a complicated urinary tract infection with evidence of bilateral kidney stone requiring cystoscopy and bilateral ureteral stent placement will need to call for the enteric gram-negative to be the likely pathogen 2-urine culture currently growing Enterococcus faecium that is resistant to ampicillin, blood culture positive for Vangie, 3-blood culture has been repeated and so far negative 4-patient to continue with Eraxis along with daptomycin to cover for the Enterococcus faecium 5-we will order a midline for tomorrow so the patient can continue with the antibiotic and antifungal therapy Dictation was produced using [employer] dictation software. please excuse any gr ammatical, word or spelling errors. Time with Patient: Less than 30
[2024-05-17 16:18] LABS: Glucose,Whole Blood 85 mg/dL (70-110)
[2024-05-17 20:51] LABS: Glucose,Whole Blood 93 mg/dL (70-110)
--- NOTE | 2024-05-18 04:12 | PN ---
PROGRESS NOTE DATE OF SERVICE: 05/17/2024 SUBJECTIVE: This is a 68-year-old woman, who was admitted with acute UTI with group D Enterococcus, also had candidemia, the most recent cultures are negative. Infectious Disease is following the patient closely. No chest pain. No palpitation. PHYSICAL EXAMINATION: VITAL SIGNS: Pulse is 65, blood pressure n, respirations 16. CHEST: Clear to auscultation. CARDIOVASCULAR: S1, S2. ABDOMEN: Soft. No hepatosplenomegaly. NERVOUS SYSTEM: Nonfocal. LABORATORY DATA: Creatinine is 2.8, improving. Rest of the labs are noted. ASSESSMENT: 1. Acute urinary tract infection with group D Enterococcus with vancomycin sensitivity. 2. Candidemia. 3. Hydronephrosis with bilateral ureteral stent placement. 4. Elevated creatinine. Improving. 5. UTI. 6. Multiple medical issues. RECOMMENDATIONS: Recommend to continue current management. Continue with antibiotics. Repeat labs closely. Follow with Infectious Disease and Nephrology. We will closely follow with Infectious Disease regarding the possible PICC line placement, and the patient might be able to go home soon once the repeat cultures are negative and decision about the PICC line has been taken by Infectious Disease. MMODL / IJN: [id number] / MTDD
[2024-05-18 06:15] LABS: Glucose,Whole Blood 79 mg/dL (70-110)
[2024-05-18 08:36] LABS: Basophils # (A) 0.05 X 10*3/uL (0.00-0.10); Basophils % (A) 0.4 %; HCT 32.8 % (37.2-46.3); HGB 9.7 g/dL (12.0-15.0); Lymphocytes # (A) 1.95 X 10*3/uL (0.90-5.00); Lymphocytes % (A) 17.1 %; MCH 27.2 pg (27.0-32.0); MCHC 29.6 g/dL (32.0-37.0); MCV 91.9 FL (80.0-97.0); Monocytes # (A) 0.99 X 10*3/uL (0.20-1.00); Monocytes % (A) 8.7 %; NRBC Per 100 WBC 0 X 10*3/uL (0.00-0.01); Neutrophils # (A) 7.22 X 10*3/uL (1.80-7.70); Neutrophils % (A) 63.5 %; Platelet Count 252 X 10*3/uL (140-440); RBC 3.57 X 10*6/uL (4.10-5.20); WBC 11.39 X 10*3/uL (4.50-10.00)
--- NOTE | 2024-05-18 08:59 | P.PN ---
Subjective Progress Note Date: 05/18/24 The patient had stents placed by dr Briceño for obstructing stones bilaterally with uti. She is feeling fine. Objective - Vital Signs Vital signs: Vital Signs Temp 98.2 F 05/18/24 07:40 Pulse 67 05/18/24 07:40 Resp 17 05/18/24 07:40 BP 116/75 05/18/24 07:40 Pulse Ox 95 05/18/24 07:40 FiO2 Intake & Output 05/17/24 05/18/24 05/18/24 18:59 06:59 18:59 Intake Total 550 Output Total 5 704 Balance 545 -704 Intake: Oral 550 Output: Urine 1 700 Stool 4 4 Other: Voiding Method Toilet Toilet # Voids 1 1 # Bowel Movements 2 - Labs CBC & Chem 7: 05/18/24 05:11 05/17/24 03:58 Labs: Abnormal Lab Results - Last 24 Hours (Table) 05/17/24 05/17/24 05/18/24 Range/Units 03:58 03:58 05:11 WBC 11.00 H 11.39 H (4.50-10.00) X 10*3/uL RBC 3.38 L 3.57 L (4.10-5.20) X 10*6/uL Hgb 9.5 L 9.7 L (12.0-15.0) g/dL Hct 31.0 L 32.8 L (37.2-46.3) % MCHC 30.6 L 29.6 L (32.0-37.0) g/dL RDW 16.2 H 16.0 H (11.5-14.5) % MPV 12.3 H (9.5-12.2) FL Immature Gran # 0.39 H 0.38 H (0.00-0.04) X 10*3/uL Monocytes # 1.01 H (0.20-1.00) X 10*3/uL Eosinophils # 0.75 H 0.80 H (0.04-0.35) X 10*3/uL BUN 35.2 H (9.0-27.0) mg/dL Creatinine 2.8 H (0.6-1.5) mg/dL Est GFR (CKD-EPI) 18 L (>=60) Calcium 8.6 L (8.7-10.3) mg/dL Magnesium 1.4 L (1.5-2.4) mg/dL Microbiology - Last 24 Hours (Table) 05/14/24 15:30 Blood Culture - Preliminary Blood Assessment and Plan Assessment: Impression: bilateral ureteral stones with obstruction, uti with sepsis. s/p stent placement Plan: the patient will need ureteroscopy with stone and stent removal bilaterally in the future.
[2024-05-18 09:02] LABS: BUN/Creat Ratio 10.21 Ratio (12.00-20.00); Blood Urea Nitrogen 29.6 mg/dL (9.0-27.0); Calcium 8.5 mg/dL (8.7-10.3); Carbon Dioxide 24.8 mmol/L (21.6-31.8); Chloride 106 mmol/L (96-109); Glucose 98 mg/dL (70-110); Magnesium 1.5 mg/dL (1.5-2.4); Potassium 4.1 mmol/L (3.5-5.5); Sodium 142 mmol/L (135-145)
--- NOTE | 2024-05-18 11:22 | P.PN ---
Subjective Patient is seen in follow-up for acute kidney injury. Renal function stable. Oral intake fair. Admits to good urine output. Vital signs are stable. General: No acute distress. Sitting up in chair. HEENT: Head exam is unremarkable. LUNGS: No audible rhonchi or wheezes. HEART: Rate and Rhythm are regular. ABDOMEN: Obese, nontender. EXTREMITITES: Trace edema. Objective - Vital Signs Vital signs: Vital Signs Temp 98.2 F 05/18/24 07:40 Pulse 67 05/18/24 07:40 Resp 18 05/18/24 10:46 BP 116/75 05/18/24 07:40 Pulse Ox 95 05/18/24 07:40 FiO2 Intake & Output 05/17/24 05/18/24 05/18/24 18:59 06:59 18:59 Intake Total 550 Output Total 5 704 4 Balance 545 -704 -4 Intake: Oral 550 Output: Urine 1 700 Stool 4 4 4 Other: Voiding Method Toilet Toilet Toilet # Voids 1 1 # Bowel Movements 2 - Labs CBC & Chem 7: 05/18/24 05:11 05/18/24 05:11 Labs: Abnormal Lab Results - Last 24 Hours (Table) 05/17/24 05/18/24 05/18/24 Range/Units 03:58 05:11 05:11 WBC 11.39 H (4.50-10.00) X 10*3/uL RBC 3.57 L (4.10-5.20) X 10*6/uL Hgb 9.7 L (12.0-15.0) g/dL Hct 32.8 L (37.2-46.3) % MCHC 29.6 L (32.0-37.0) g/dL RDW 16.0 H (11.5-14.5) % Immature Gran # 0.38 H (0.00-0.04) X 10*3/uL Eosinophils # 0.80 H (0.04-0.35) X 10*3/uL BUN 35.2 H 29.6 H (9.0-27.0) mg/dL Creatinine 2.8 H 2.9 H (0.6-1.5) mg/dL Est GFR (CKD-EPI) 18 L 17 L (>=60) BUN/Creatinine Ratio 10.21 L (12.00-20.00) Ratio Calcium 8.6 L 8.5 L (8.7-10.3) mg/dL Microbiology - Last 24 Hours (Table) 05/14/24 15:30 Blood Culture - Preliminary Blood Assessment and Plan Plan: Assessment: 1. Acute kidney injury secondary to ATN secondary to severe sepsis. Creatinine 4.7 on admission and is stable at 2.9 today. 2. Chronic kidney disease stage IIIa with baseline creatinine 1.1-1.2 in January 2018. 3. Vangie bacteremia and Enterococcus UTI on antibiotics and antifungal. ID following. 4. Bilateral hydronephrosis with nephrolithiasis status post cystoscopy and bilateral ureteral stents placement in April 2024. Urology following 5. Metabolic acidosis secondary to acute kidney injury. Improved. 6. Lower extremity edema. 7. Hypomagnesemia from poor intake and GI losses. On oral magnesium oxide. Plan: Avoid nephrotoxins. Continue to monitor renal function and urine output. Encourage oral intake. 20 mg IV Lasix once today. Replace magnesium.
[2024-05-18 11:30] LABS: Glucose,Whole Blood 80 mg/dL (70-110)
[2024-05-18] MEDS: ACETAMINOPHEN TAB 325 MG TAB PO PRN (12:12)
[2024-05-18] MEDS: MAGNESIUM SULFATE-D5W PMX 1 GM in DEXTROSE/WATER 1 100ML.BAG IVPB SCH (12:13)
[2024-05-18] MEDS: FUROSEMIDE 10 MG/ML 2 ML VIAL IV ONE (12:13)
[2024-05-18 14:05] VITALS: BMI 49.9
[2024-05-18 16:34] LABS: Glucose,Whole Blood 89 mg/dL (70-110)
[2024-05-18 21:06] LABS: Glucose,Whole Blood 114 mg/dL (70-110)
[2024-05-19 05:42] LABS: Glucose,Whole Blood 91 mg/dL (70-110)
[2024-05-19 08:36] LABS: Basophils # (A) 0.06 X 10*3/uL (0.00-0.10); Basophils % (A) 0.5 %; Eosinophils # (A) 0.72 X 10*3/uL (0.04-0.35); HCT 33.5 % (37.2-46.3); HGB 10.4 g/dL (12.0-15.0); Lymphocytes % (A) 15.9 %; MCH 28.2 pg (27.0-32.0); MCV 90.8 FL (80.0-97.0); Mean Platelet Volume 11.7 FL (9.5-12.2); Monocytes # (A) 1.08 X 10*3/uL (0.20-1.00); NRBC Per 100 WBC 0 X 10*3/uL (0.00-0.01); Neutrophils # (A) 7.77 X 10*3/uL (1.80-7.70); Neutrophils % (A) 65.2 %; Platelet Count 272 X 10*3/uL (140-440); RBC 3.69 X 10*6/uL (4.10-5.20); WBC 11.94 X 10*3/uL (4.50-10.00)
[2024-05-19 08:52] LABS: BUN/Creat Ratio 9.97 Ratio (12.00-20.00); Blood Urea Nitrogen 28.9 mg/dL (9.0-27.0); Calcium 8.5 mg/dL (8.7-10.3); Carbon Dioxide 26.2 mmol/L (21.6-31.8); Chloride 104 mmol/L (96-109); Glucose 98 mg/dL (70-110); Magnesium 2.1 mg/dL (1.5-2.4); Potassium 4.2 mmol/L (3.5-5.5); Sodium 142 mmol/L (135-145)
--- NOTE | 2024-05-19 09:37 | P.PN ---
Subjective Progress Note Date: 05/18/24 This is a 68-year-old female who was recently admitted with acute UTI with group D Enterococcus and also candidemia with infectious disease, nephrology, urology following. Patient is maintained on IV antibiotics and will receive a midline and continue on antibiotics in the outpatient setting. Patient with generalized weakness and need for antibiotics will be going to [facility] and currently awaiting PT/OT therapy evaluation. Most recent blood cultures have been negative. Patient is afebrile with no reports of chest pain or shortness of breath. Patient has been tolerating diet with no reported nausea or vomiting. Review of systems: Constitutional: No reports of fatigue, fever, or chills Cardiovascular: No reports of chest pain or palpitations Respiratory: No reports of shortness of breath or cough GI: No reports of nausea, no reports of vomiting, no diarrhea : No reports of dysuria, had retention Neurovascular: reports of generalized weakness All medications have been reviewed PHYSICAL EXAMINATION: GENERAL: The patient is alert and oriented x4, Well developed, well nourished. Morbidly obese HEENT: Pupils are round and equally reacting to light. EOMI. no scleral icterus. No conjunctival pallor. Normocephalic, atraumatic. No pharyngeal erythema. No thyromegaly. CARDIOVASCULAR: S1 and S2 muffled PULMONARY: diminished breath sounds bilaterally with no wheezing or rhonchi n oted. ABDOMEN: soft. Nontender on exam. obese. non-distended, normoactive bowel sounds. No palpable organomegaly. MUSCULOSKELETAL: No joint swelling or deformity. EXTREMITIES: No cyanosis, clubbing, or pedal edema. NEUROLOGICAL: Gross neurological examination did not reveal any focal deficits. Diffuse weakness SKIN: No rashes. Assessment: Acute urinary tract infection with group D Enterococcus, present on admission Candidemia Hydronephrosis with bilateral ureteral stent placement Elevated creatinine likely secondary to obstructive uropathy, improving Diabetes mellitus, type II History of anxiety, bipolar depression with borderline personality disorder Morbid obesity with a BMI of 49.9 GI prophylaxis DVT prophylaxis Full code Plan: Recommend to continue with current medications and management with infectious disease, urology, nephrology following Patient is continued on antibiotics along with antifungals in the form of daptomycin and anidulafungin and will discuss with infectious disease regarding discharge planning. Patient will require IV antibiotics and scheduled to re ceive a midline/PICC line for discharge planning Planning on going to [facility] with case management/social work following and will require insurance authorization Patient will require outpatient follow-up with urology as well as nephrology Replace electrolytes per protocol and magnesium was slightly low and will follow-up with repeat labs Discussed with other consultations regarding discharge planning possibly in the next 24 to 48 hours Due to multiple complex medical issues, prognosis is guarded The impression and plan of care has been dictated by Urszula Batres, nurse practitioner as directed. Dr. Andrew MD I have performed a history and examination and MDM of this patient, discussed the same with the dictator, and agree with the dictator's assessment and plan as written ,documented as a scribe. Based on total visit time, I have performed more than 50% of the visit. Any additional findings or plans will be noted. Surgery can be manage Fucking know before I get in there Objective - Vital Signs Vital signs: Vital Signs Temp 98.2 F 05/18/24 07:40 Pulse 67 05/18/24 07:40 Resp 18 05/18/24 10:46 BP 116/75 05/18/24 07:40 Pulse Ox 95 05/18/24 07:40 FiO2 Intake & Output 05/17/24 05/18/24 05/18/24 18:59 06:59 18:59 Intake Total 550 Output Total 5 704 4 Balance 545 -704 -4 Intake: Oral 550 Output: Urine 1 700 Stool 4 4 4 Other: Voiding Method Toilet Toilet Toilet # Voids 1 1 # Bowel Movements 2 1 - Labs CBC & Chem 7: 05/19/24 05:54 05/19/24 05:54 Labs: Abnormal Lab Results - Last 24 Hours (Table) 05/18/24 05/18/24 Range/Units 05:11 05:11 WBC 11.39 H (4.50-10.00) X 10*3/uL RBC 3.57 L (4.10-5.20) X 10*6/uL Hgb 9.7 L (12.0-15.0) g/dL Hct 32.8 L (37.2-46.3) % MCHC 29.6 L (32.0-37.0) g/dL RDW 16.0 H (11.5-14.5) % Immature Gran # 0.38 H (0.00-0.04) X 10*3/uL Eosinophils # 0.80 H (0.04-0.35) X 10*3/uL BUN 29.6 H (9.0-27.0) mg/dL Creatinine 2.9 H (0.6-1.5) mg/dL Est GFR (CKD-EPI) 17 L (>=60) BUN/Creatinine Ratio 10.21 L (12.00-20.00) Ratio Calcium 8.5 L (8.7-10.3) mg/dL Microbiology - Last 24 Hours (Table) 05/14/24 15:30 Blood Culture - Preliminary Blood
--- NOTE | 2024-05-19 10:37 | P.PN ---
Subjective Patient is seen in follow-up for acute kidney injury. Renal function stable. Oral intake fair. Admits to good urine output. No active complaints. Vital signs are stable. General: No acute distress. Sitting up in chair. HEENT: Head exam is unremarkable. LUNGS: No audible rhonchi or wheezes. HEART: Rate and Rhythm are regular. ABDOMEN: Obese, nontender. EXTREMITITES: Trace edema. Objective - Vital Signs Vital signs: Vital Signs Temp 97.4 F L 05/19/24 07:27 Pulse 77 05/19/24 07:27 Resp 16 05/19/24 07:27 BP 104/66 05/19/24 07:27 Pulse Ox 92 L 05/19/24 07:27 FiO2 Intake & Output 05/18/24 05/19/24 05/19/24 18:59 06:59 18:59 Intake Total 600 Output Total 654 Balance -54 Weight 136.078 kg Intake: Oral 600 Output: Urine 650 Stool 4 Other: Voiding Method Toilet Bedside Commode Toilet Bedside Commode # Voids 10 # Bowel Movements 1 - Labs CBC & Chem 7: 05/19/24 05:54 05/19/24 05:54 Labs: Abnormal Lab Results - Last 24 Hours (Table) 05/18/24 05/19/24 05/19/24 Range/Units 21:04 05:54 05:54 WBC 11.94 H (4.50-10.00) X 10*3/uL RBC 3.69 L (4.10-5.20) X 10*6/uL Hgb 10.4 L (12.0-15.0) g/dL Hct 33.5 L (37.2-46.3) % MCHC 31.0 L (32.0-37.0) g/dL RDW 16.0 H (11.5-14.5) % Immature Gran # 0.41 H (0.00-0.04) X 10*3/uL Neutrophils # 7.77 H (1.80-7.70) X 10*3/uL Monocytes # 1.08 H (0.20-1.00) X 10*3/uL Eosinophils # 0.72 H (0.04-0.35) X 10*3/uL BUN 28.9 H (9.0-27.0) mg/dL Creatinine 2.9 H (0.6-1.5) mg/dL Est GFR (CKD-EPI) 17 L (>=60) BUN/Creatinine Ratio 9.97 L (12.00-20.00) Ratio POC Glucose (mg/dL) 114 H (70-110) mg/dL Calcium 8.5 L (8.7-10.3) mg/dL Microbiology - Last 24 Hours (Table) 05/13/24 12:34 Blood Culture - Final Blood Assessment and Plan Plan: Assessment: 1. Acute kidney injury secondary to ATN secondary to severe sepsis. Creatinine 4.7 on admission and is stable at 2.9 today. 2. Chronic kidney disease stage IIIa with baseline creatinine 1.1-1.2 in January 2018. 3. Vangie bacteremia and Enterococcus UTI on antibiotics and antifungal. ID following. 4. Bilateral hydronephrosis with nephrolithiasis status post cystoscopy and bilateral ureteral stents placement in April 2024. Urology following 5. Metabolic acidosis secondary to acute kidney injury. Improved. 6. Lower extremity edema. 7. Hypomagnesemia from poor intake and GI losses. On oral magnesium oxide. Better. Plan: Avoid nephrotoxins. Continue to monitor renal function and urine output. Encourage oral intake. Status post IV Lasix given May 18, 2024. Patient advised to follow-up outpatient 1 week postdischarge.
[2024-05-19 11:15] LABS: Glucose,Whole Blood 92 mg/dL (70-110)
--- NOTE | 2024-05-19 13:38 | P.PN ---
Subjective Progress Note Date: 05/18/24 Principal diagnosis: Reason for follow-up is complicated UTI and candidemia sudheer is a 68-year-old female with a past medical history negative for diabetes mellitus reflux pneumonia thyroid disorder presenting to the hospital yesterday afternoon as a transfer from [facility] where the patient has been diagnosed with UTI and the patient was noticed to have worsening kidney function CT did shows evidence of kidney stone patient is status post bilateral ureteral stent placement. Blood cultures came back positive with Vangie. On today's evaluation that is 05/18/2024, patient has been afebrile, patient is breathing comfortably and is currently on room air, patient denies having any significant cough no chest pain shortness of breath, patient denies nausea vomiting or diarrhea and no abdominal pain, patient finally get a midline and was able to get her antibiotic this morning. Patient white count is 11.39, creatinine is 2 point 9 repeat blood culture negative Objective - Vital Signs Vital signs: Vital Signs Temp 98.2 F 05/18/24 14:00 Pulse 62 05/18/24 14:00 Resp 18 05/18/24 14:00 BP 101/65 05/18/24 14:00 Pulse Ox 94 L 05/18/24 14:00 FiO2 Intake & Output 05/17/24 05/18/24 05/18/24 18:59 06:59 18:59 Intake Total 550 600 Output Total 5 704 654 Balance 545 -704 -54 Weight 136.078 kg Intake: Oral 550 600 Output: Urine 1 700 650 Stool 4 4 4 Other: Voiding Method Toilet Toilet Toilet # Voids 1 1 # Bowel Movements 2 1 - Exam GENERAL DESCRIPTION: An elderly female up in the chair in no distress RESPIRATORY SYSTEM: Unlabored breathing , decreased breath sounds at bases HEART: S1 S2 regular rate and rhythm , ABDOMEN: Soft , no tenderness EXTREMITIES: No edema feet - Labs CBC & Chem 7: 05/19/24 05:54 05/19/24 05:54 Labs: Abnormal Lab Results - Last 24 Hours (Table) 05/18/24 05/18/24 Range/Units 05:11 05:11 WBC 11.39 H (4.50-10.00) X 10*3/uL RBC 3.57 L (4.10-5.20) X 10*6/uL Hgb 9.7 L (12.0-15.0) g/dL Hct 32.8 L (37.2-46.3) % MCHC 29.6 L (32.0-37.0) g/dL RDW 16.0 H (11.5-14.5) % Immature Gran # 0.38 H (0.00-0.04) X 10*3/uL Eosinophils # 0.80 H (0.04-0.35) X 10*3/uL BUN 29.6 H (9.0-27.0) mg/dL Creatinine 2.9 H (0.6-1.5) mg/dL Est GFR (CKD-EPI) 17 L (>=60) BUN/Creatinine Ratio 10.21 L (12.00-20.00) Ratio Calcium 8.5 L (8.7-10.3) mg/dL Microbiology - Last 24 Hours (Table) 05/13/24 12:34 Blood Culture - Final Blood 05/14/24 15:30 Blood Culture - Preliminary Blood Assessment and Plan (1) Complicated UTI (urinary tract infection) Current Visit: Yes Status: Acute Code(s): N39.0 - URINARY TRACT INFECTION, SITE NOT SPECIFIED SNOMED Code(s): 76489498 (2) Candidemia Current Visit: Yes Status: Acute Code(s): B37.7 - CANDIDAL SEPSIS SNOMED Code(s): 936572883 (3) Diarrhea Current Visit: Yes Status: Acute Code(s): R19.7 - DIARRHEA, UNSPECIFIED SNOMED Code(s): 74846398 Plan: 1patient with a complicated urinary tract infection with evidence of bilateral kidney stone requiring cystoscopy and bilateral ureteral stent placement will need to call for the enteric gram-negative to be the likely pathogen 2-urine culture currently growing Enterococcus faecium that is resistant to ampicillin, blood culture positive for Vangie, 3-blood culture has been repeated and so far negative 4-patient to continue with Eraxis along with daptomycin to cover for the Enterococcus faecium 5-patient did get a midline so she can get her antibiotic we will plan on daptomycin and oral Diflucan on discharge Dictation was produced using [email or web address] dictation software. please excuse any grammatical, word or spelling errors. Time with Patient: Less than 30
--- NOTE | 2024-05-19 13:39 | P.PN ---
Subjective Progress Note Date: 05/19/24 Principal diagnosis: Reason for follow-up is complicated UTI and candidemia sudheer is a 68-year-old female with a past medical history negative for diabetes mellitus reflux pneumonia thyroid disorder presenting [place] the [place] [facility] [place] been diagnosed with UTI and the patient was noticed to have worsening kidney function CT did shows evidence of kidney stone patient is status post bilateral ureteral stent placement. Blood cultures came back positive with Vangie. On today's evaluation that is 05/19/2024, Patient is afebrile this morning and denies any chills, patient mention breathing comfortably and is currently on room air, patient denies any chest pain occasional cough patient denies any abdominal pain no diarrhea no nausea no vomiting, patient mention feeling better ready to go to rehab Patient white count is 11.94 creatinine is 2.9 blood culture repeat has been negative Objective - Vital Signs Vital signs: Vital Signs Temp 97.4 F L 05/19/24 07:27 Pulse 77 05/19/24 07:27 Resp 16 05/19/24 07:27 BP 104/66 05/19/24 07:27 Pulse Ox 92 L 05/19/24 07:27 FiO2 Intake & Output 05/18/24 05/19/24 05/19/24 18:59 06:59 18:59 Intake Total 600 Output Total 654 Balance -54 Weight 136.078 kg Intake: Oral 600 Output: Urine 650 Stool 4 Other: Voiding Method Toilet Bedside Commode Toilet Bedside Commode # Voids 10 # Bowel Movements 1 - Exam GENERAL DESCRIPTION: An elderly female up in the chair in no distress RESPIRATORY SYSTEM: Unlabored breathing , decreased breath sounds at bases HEART: S1 S2 regular rate and rhythm , ABDOMEN: Soft , no tenderness EXTREMITIES: No edema feet - Labs CBC & Chem 7: 05/19/24 05:54 05/19/24 05:54 Labs: Abnormal Lab Results - Last 24 Hours (Table) 05/18/24 05/19/24 05/19/24 Range/Units 21:04 05:54 05:54 WBC 11.94 H (4.50-10.00) X 10*3/uL RBC 3.69 L (4.10-5.20) X 10*6/uL Hgb 10.4 L (12.0-15.0) g/dL Hct 33.5 L (37.2-46.3) % MCHC 31.0 L (32.0-37.0) g/dL RDW 16.0 H (11.5-14.5) % Immature Gran # 0.41 H (0.00-0.04) X 10*3/uL Neutrophils # 7.77 H (1.80-7.70) X 10*3/uL Monocytes # 1.08 H (0.20-1.00) X 10*3/uL Eosinophils # 0.72 H (0.04-0.35) X 10*3/uL BUN 28.9 H (9.0-27.0) mg/dL Creatinine 2.9 H (0.6-1.5) mg/dL Est GFR (CKD-EPI) 17 L (>=60) BUN/Creatinine Ratio 9.97 L (12.00-20.00) Ratio POC Glucose (mg/dL) 114 H (70-110) mg/dL Calcium 8.5 L (8.7-10.3) mg/dL Microbiology - Last 24 Hours (Table) 05/13/24 12:34 Blood Culture - Final Blood Assessment and Plan (1) Complicated UTI (urinary tract infection) Current Visit: Yes Status: Acute Code(s): N39.0 - URINARY TRACT INFECTION, SITE NOT SPECIFIED SNOMED Code(s): 90135074 (2) Candidemia Current Visit: Yes Status: Acute Code(s): B37.7 - CANDIDAL SEPSIS SNOMED Code(s): 721568911 (3) Diarrhea Current Visit: Yes Status: Acute Code(s): R19.7 - DIARRHEA, UNSPECIFIED SNOMED Code(s): 00322177 Plan: 1patient with a complicated urinary tract infection with evidence of bilateral kidney stone requiring cystoscopy and bilateral ureteral stent placement will need to call for the enteric gram-negative to be the likely pathogen 2-urine culture currently growing Enterococcus faecium that is resistant to ampicillin, blood culture positive for Vangie, 3-blood culture has been repeated and so far negative 4-patient did get a midline plan is for a 10-day course of daptomycin which is every 48 hours and we will switch Eraxis to Diflucan 200 g p.o. daily for 10 days and close outpatient follow-up Dictation was produced using [employer] software. please excuse any grammatical, word or spelling errors. Time with Patient: Less than 30
--- NOTE | 2024-05-19 14:23 | P.DS ---
Providers Date of admission: 05/11/24 14:47 Expected date of discharge: 05/19/24 Attending physician: Gordo Rose Consults: 05/11/24 14:46 Consult Physician Urgent Consulting Provider: Rell Briceño Consult Reason/Comments: Obstructive uropathy with NITO Do you want consulting provider notified?: Yes 05/12/24 11:11 Consult Physician Routine Consulting Provider: Laurel Villalpando Consult Reason/Comments: NITO - Creatinine 4.7,BUN 81.3 Do you want consulting provider notified?: Yes 05/12/24 11:48 Consult Physician Routine Consulting Provider: Stefan Alarcon Consult Reason/Comments: UTi, kidney stons Do you want consulting provider notified?: Yes Primary care physician: Gordo Rose [facility] Course: Final diagnosis Acute urinary tract infection with group D Enterococcus, present on admission Candidemia Hydronephrosis with bilateral ureteral stent placement Elevated creatinine likely secondary to obstructive uropathy, improving Diabetes mellitus, type II History of anxiety, bipolar depression with borderline personality disorder Morbid obesity with a BMI of 49.9 GI prophylaxis DVT prophylaxis Full code Discharge disposition Patient is being discharged in a stable condition with guarded prognosis to [facility]. Patient will follow-up with Dr. Rose in the outpatient setting upon discharge. Patient is to continue with IV antibiotics and has rec eived a midline in the form of daptomycin as well as oral Diflucan per ID recommendations and close outpatient follow-up with urology as well as nephrology as scheduled. Repeat CBC, CMP, magnesium in 2 to 3 days. Total time taken is greater than 35 minutes. Hospital course This is a 68-year-old female who was recently admitted with acute urinary tract infection, present on admission along with hydronephrosis status post bilateral stent placement and elevated creatinine likely secondary to obstructive uropathy which is currently improving. Multiple medical consultations including urology, nephrology, infectious disease following and patient is maintained on daptomycin along with Eraxis. Patient's initial blood culture showing Vangie and also urine culture finalizing showing Enterococcus. Patient has shown clinical improvement and is status post stent placement will need close outpatient follow-up with urology as well as nephrology and infectious disease in the outpatient setting. Patient will continue on IV daptomycin and has received a midline and will continue oral Diflucan to complete the course. Recommend repeat labs in the next few days to monitor CBC, CMP, magnesium. Patient reports to feeling much improved and would like to go. Patient unable to manage IV antibiotics on her own at home and will be going to [facility] [place]. Currently awaiting insurance authorization. Please refer to other consultation notes for further HPI. Currently no reports of chest pain, shortness of breath, or palpitations. Patient is afebrile. No reports of nausea or vomiting and patient is tolerating diet. Patient will be going to [facility] [place] today. Guarded prognosis Physical exam: Gen: This is a 68-year-old female who is awake, alert and oriented x 3, well-d eveloped, well-nourished, morbidly obese HEENT: Head is atraumatic, normocephalic. Pupils equal, round. Sclerae is anicteric. NECK: Supple. No JVD. No lymphadenopathy. No thyromegaly. LUNGS: Diminished breath sounds bilaterally otherwise clear to auscultation. No wheezes or rhonchi. No intercostal retractions. HEART: Regular rate and rhythm. No murmur. ABDOMEN: Soft. Obese. Bowel sounds are present. No masses. No tenderness. EXTREMITIES: No pedal edema. No calf tenderness. NEUROLOGICAL: Patient is awake, alert and oriented x3. Cranial nerves 2 through 12 are grossly intact. Diffusely weak Please refer to medication reconciliation sheet for a list of medications. The impression and plan of care has been dictated by Urszula Batres, Nurse Practitioner as directed. Dr. Andrew MD I have performed a history and examination and MDM of this patient, discussed the same with the dictator, and agree with the dictator's assessment and plan as written ,documented as a scribe. Based on total visit time, I have performed more than 50% of the visit. Patient Condition at Discharge: Fair Plan - Discharge Summary Discharge Rx Participant: Yes New Discharge Prescriptions: New DAPTOmycin 350 mg IV Q48H #5 each Fluconazole [Diflucan] 200 mg PO DAILY #10 tablet No Action lisinopriL [Zestril] 5 mg PO DAILY Ferrous Sulfate [Iron] 325 mg PO DAILY Cetirizine HCl 10 mg PO DAILY Aspirin EC [Ecotrin Low Dose] 81 mg PO DAILY ARIPiprazole [Abilify] 5 mg PO HS Venlafaxine HCl [Effexor XR] 150 mg PO DAILY Omeprazole 20 mg PO DAILY Tirzepatide [Mounjaro] 2.5 mg SQ TH Levothyroxine Sodium [Synthroid] 100 mcg PO DAILY Pioglitazone [Actos] 30 mg PO DAILY Discharge Medication List ARIPiprazole [Abilify] 5 mg PO HS 01/29/18 [History] Aspirin EC [Ecotrin Low Dose] 81 mg PO DAILY 01/29/18 [History] Cetirizine HCl 10 mg PO DAILY 01/29/18 [History] Ferrous Sulfate [Iron] 325 mg PO DAILY 01/29/18 [History] lisinopriL [Zestril] 5 mg PO DAILY 01/29/18 [History] Levothyroxine Sodium [Synthroid] 100 mcg PO DAILY 05/11/24 [History] Omeprazole 20 mg PO DAILY 05/11/24 [History] Pioglitazone [Actos] 30 mg PO DAILY 05/11/24 [History] Tirzepatide [Mounjaro] 2.5 mg SQ TH 05/11/24 [History] Venlafaxine HCl [Effexor XR] 150 mg PO DAILY 05/11/24 [History] DAPTOmycin 350 mg IV Q48H #5 each 05/19/24 [Rx] Fluconazole [Diflucan] 200 mg PO DAILY #10 tablet 05/19/24 [Rx] Follow up Appointment(s)/Referral(s): Rell Briceño MD [STAFF PHYSICIAN] - 1 Week Gordo Rose MD [Primary Care Provider] - 1-2 days
--- NOTE | 2024-05-19 15:01 | P.PN ---
Subjective Progress Note Date: 05/19/24 This is a 68-year-old female who was recently admitted with acute UTI with group D Enterococcus and also candidemia with infectious disease, nephrology, urology following. Patient is maintained on IV antibiotics and will receive a midline and continue on antibiotics in the outpatient setting. Patient with generalized weakness and need for antibiotics will be going to ECF and currently awaiting PT/OT therapy evaluation. Most recent blood cultures have been negative. Patient is afebrile with no reports of chest pain or shortness of breath. Patient has been tolerating diet with no reported nausea or vomiting. 05/19/2024 Patient is seen in follow-up today maintained on IV antibiotics and has received a midline. Plan is for patient to go on IV daptomycin along with oral antifungals. Patient is afebrile with no reported chest pain or shortness of breath. Patient reports to feeling improved and would like to go home with nephrology and urology following. Patient will need outpatient follow-up with urology. Patient does have significant history of anxiety with depression and bipolar disorder with borderline personality disorder and follows with [facility] outpatient. Patient will not be able to self administer antibiotics via IV safely even with the help of home care in the outpatient setting and will need to go to ECF for continued IV antibiotic therapy to complete the course. Plan is for daptomycin every 48 hours for 5 doses to complete the course for Enterococcus UTI. Case management/social work is following as patient will require insurance authorization and has been accepted at [facility] pending authorization. Review of systems: Constitutional: No reports of fatigue, fever, or chills Cardiovascular: No reports of chest pain or palpitations Respiratory: No reports of shortness of breath or cough GI: No reports of nausea, no reports of vomiting, no diarrhea : No reports of dysuria, had retention Neurovascular: reports of generalized weakness All medications have been reviewed PHYSICAL EXAMINATION: GENERAL: The patient is alert and oriented x3, Well developed, well nourished. Anxious, morbidly obese HEENT: Pupils are round and equally reacting to light. EOMI. no scleral icterus. No conjunctival pallor. Normocephalic, atraumatic. No pharyngeal erythema. No thyromegaly. CARDIOVASCULAR: S1 and S2 muffled PULMONARY: diminished breath sounds bilaterally with no wheezing or rhonchi noted. ABDOMEN: soft. Nontender on exam. obese. non-distended, normoactive bowel sounds. No palpable organomegaly. MUSCULOSKELETAL: No joint swelling or deformity. EXTREMITIES: No cyanosis, clubbing, or pedal edema. NEUROLOGICAL: Gross neurological examination did not reveal any focal deficits. Diffuse weakness SKIN: No rashes. Assessment: Acute urinary tract infection with group D Enterococcus, present on admission Candidemia primary timing what ever for 59 Hydronephrosis with bilateral ureteral stent placement Elevated creatinine likely secondary to obstructive uropathy, improving Diabetes mellitus, type II History of anxiety, bipolar depression with borderline personality disorder Morbid obesity with a BMI of 49.9 GI prophylaxis DVT prophylaxis Full code Plan: Recommend to continue with current medications and management with infectious disease, urology, nephrology following Patient is continued on antibiotics along with antifungals in the form of daptomycin and anidulafungin and will discuss with infectious disease regarding discharge planning. Patient will require IV antibiotics and has received a midline/PICC line. Plan is for daptomycin every 48 hours for 5 doses as well as oral Diflucan. Planning on going to ECF with case management/social work following and will require insurance authorization. Patient has been accepted at [facility] currently requiring and awaiting insurance authorization. Patient currently lives alone and has no help in the home to be able to manage IV antibiotic therapy even with the assistance of home care and do not feel this is a safe discharge given patient has significant mental health history and appears cognitively delayed. Patient would benefit from ECF for short stay to complete IV antibiotic therapy Patient will require outpatient follow-up with urology as well as nephrology Replace electrolytes per protocol and magnesium was slightly low and will follow-up with repeat labs Discussed with other consultations regarding discharge planning possibly in the next 24 hours Due to multiple complex medical issues, prognosis is guarded The impression and plan of care has been dictated by Urszula Batres, nurse practitioner as directed. Dr. Andrew MD I have performed a history and examination and MDM of this patient, discussed the same with the dictator, and agree with the dictator's assessment and plan as written ,documented as a scribe. Based on total visit time, I have performed more than 50% of the visit. Any additional findings or plans will be noted. Surgery can be manage Fucking know before I get in there Objective - Vital Signs Vital signs: Vital Signs Temp 97.4 F L 05/19/24 07:27 Pulse 77 05/19/24 07:27 Resp 16 05/19/24 07:27 BP 104/66 05/19/24 07:27 Pulse Ox 92 L 05/19/24 07:27 FiO2 Intake & Output 05/18/24 05/19/24 05/19/24 18:59 06:59 18:59 Intake Total 600 Output Total 654 Balance -54 Weight 136.078 kg Intake: Oral 600 Output: Urine 650 Stool 4 Other: Voiding Method Toilet Bedside Commode # Voids 10 # Bowel Movements 1 - Labs CBC & Chem 7: 05/19/24 05:54 05/19/24 05:54 Labs: Abnormal Lab Results - Last 24 Hours (Table) 05/18/24 05/19/24 05/19/24 Range/Units 21:04 05:54 05:54 WBC 11.94 H (4.50-10.00) X 10*3/uL RBC 3.69 L (4.10-5.20) X 10*6/uL Hgb 10.4 L (12.0-15.0) g/dL Hct 33.5 L (37.2-46.3) % MCHC 31.0 L (32.0-37.0) g/dL RDW 16.0 H (11.5-14.5) % Immature Gran # 0.41 H (0.00-0.04) X 10*3/uL Neutrophils # 7.77 H (1.80-7.70) X 10*3/uL Monocytes # 1.08 H (0.20-1.00) X 10*3/uL Eosinophils # 0.72 H (0.04-0.35) X 10*3/uL BUN 28.9 H (9.0-27.0) mg/dL Creatinine 2.9 H (0.6-1.5) mg/dL Est GFR (CKD-EPI) 17 L (>=60) BUN/Creatinine Ratio 9.97 L (12.00-20.00) Ratio POC Glucose (mg/dL) 114 H (70-110) mg/dL Calcium 8.5 L (8.7-10.3) mg/dL Microbiology - Last 24 Hours (Table) 05/13/24 12:34 Blood Culture - Final Blood
[2024-05-19 16:31] LABS: Glucose,Whole Blood 96 mg/dL (70-110)
[2024-05-19] MEDS: FLUCONAZOLE 100 MG TAB PO ONE (16:41)
[2024-05-19 21:39] LABS: Glucose,Whole Blood 94 mg/dL (70-110)
[2024-05-20 06:17] LABS: Glucose,Whole Blood 96 mg/dL (70-110)
[2024-05-20 12:14] LABS: Glucose,Whole Blood 71 mg/dL (70-110)
--- NOTE | 2024-05-20 12:34 | P.PN ---
Subjective Patient is seen in follow-up for acute kidney injury. Renal function stable as of yesterday. Oral intake fair. Admits to good urine output. No active complaints. Vital signs are stable. General: No acute distress. Sitting up in chair. HEENT: Head exam is unremarkable. LUNGS: No audible rhonchi or wheezes. HEART: Rate and Rhythm are regular. ABDOMEN: Obese, nontender. EXTREMITITES: Trace edema. Objective - Vital Signs Vital signs: Vital Signs Temp 97.1 F L 05/20/24 08:00 Pulse 59 L 05/20/24 08:00 Resp 17 05/20/24 08:00 BP 121/66 05/20/24 08:00 Pulse Ox 98 05/20/24 08:00 FiO2 Intake & Output 05/19/24 05/20/24 05/20/24 18:59 06:59 18:59 Intake Total 180 240 Output Total 600 Balance -420 240 Intake: Oral 180 240 Output: Urine 600 Other: Voiding Method Toilet Bedside Commode Bedside Commode Bedside Commode # Voids 4 4 # Bowel Movements 1 - Labs CBC & Chem 7: 05/19/24 05:54 05/19/24 05:54 Labs: Microbiology - Last 24 Hours (Table) 05/14/24 15:30 Blood Culture - Final Blood Assessment and Plan Plan: Assessment: 1. Acute kidney injury secondary to ATN secondary to severe sepsis. Creatinine 4.7 on admission and is stable at 2.9 yesterday. 2. Chronic kidney disease stage IIIa with baseline creatinine 1.1-1.2 in January 2018. 3. Vangie bacteremia and Enterococcus UTI on antibiotics and antifungal. ID following. 4. Bilateral hydronephrosis with nephrolithiasis status post cystoscopy and bilateral ureteral stents placement in April 2024. Urology following 5. Metabolic acidosis secondary to acute kidney injury. Improved. 6. Lower extremity edema. 7. Hypomagnesemia from poor intake and GI losses. On oral magnesium oxide. Better. Plan: Avoid nephrotoxins. Continue to monitor renal function and urine output. Encourage oral intake. Status post IV Lasix given May 18, 2024. Patient advised to follow-up outpatient 1 week postdischarge.
[2024-05-20 16:36] LABS: Glucose,Whole Blood 97 mg/dL (70-110)
--- NOTE | 2024-05-20 16:37 | P.PN ---
Subjective Progress Note Date: 05/20/24 Principal diagnosis: Reason for follow-up is complicated UTI and candidemia sudheer is a 68-year-old female with a past medical history negative for diabetes mellitus reflux pneumonia thyroid disorder presenting to the hospital yesterday afternoon as a transfer from [facility] where the patient has been diagnosed with UTI and the patient was noticed to have worsening kidney function CT did shows evidence of kidney stone patient is status post bilateral ureteral stent placement. Blood cultures came back positive with Vangie. On today's evaluation that is 05/20/2024,the patient denies any fever or any chills, patient is breathing comfortably on room air, the patient denies chest pain shortness of breath and no significant cough, patient denies abdominal pain, no nausea vomiting or diarrhea. No new symptoms currently waiting for placement. No new lab has been repeated today Objective - Vital Signs Vital signs: Vital Signs Temp 97.1 F L 05/20/24 08:00 Pulse 59 L 05/20/24 08:00 Resp 17 05/20/24 08:00 BP 121/66 05/20/24 08:00 Pulse Ox 98 05/20/24 08:00 FiO2 Intake & Output 05/19/24 05/20/24 05/20/24 18:59 06:59 18:59 Intake Total 180 240 Output Total 600 Balance -420 240 Intake: Oral 180 240 Output: Urine 600 Other: Voiding Method Toilet Bedside Commode Bedside Commode Bedside Commode # Voids 4 4 # Bowel Movements 1 - Exam GENERAL DESCRIPTION: An elderly female up in the chair in no distress RESPIRATORY SYSTEM: Unlabored breathing , decreased breath sounds at bases HEART: S1 S2 regular rate and rhythm , ABDOMEN: Soft , no tenderness EXTREMITIES: No edema feet - Labs CBC & Chem 7: 05/19/24 05:54 05/19/24 05:54 Labs: Microbiology - Last 24 Hours (Table) 05/14/24 15:30 Blood Culture - Final Blood Assessment and Plan (1) Complicated UTI (urinary tract infection) Current Visit: Yes Status: Acute Code(s): N39.0 - URINARY TRACT INFECTION, SITE NOT SPECIFIED SNOMED Code(s): 39658672 (2) Candidemia Current Visit: Yes Status: Acute Code(s): B37.7 - CANDIDAL SEPSIS SNOMED Code(s): 696223605 (3) Diarrhea Current Visit: Yes Status: Acute Code(s): R19.7 - DIARRHEA, UNSPECIFIED SNOMED Code(s): 60614169 Plan: 1patient with a complicated urinary tract infection with evidence of bilateral kidney stone requiring cystoscopy and bilateral ureteral stent placement will need to call for the enteric gram-negative to be the likely pathogen 2-urine culture currently growing Enterococcus faecium that is resistant to ampicillin, blood culture positive for Vangie, repeat blood culture has been negative 3- plan is for a 10-day course of daptomycin which is every 48 hours along with Diflucan 200 g p.o. daily for 10 days and close outpatient follow-up, currently waiting for placement Dictation was produced using [employer] dictation software. please excuse any grammatical, word or spelling errors. Time with Patient: Less than 30
[2024-05-20 20:05] LABS: Glucose,Whole Blood 99 mg/dL (70-110)
--- NOTE | 2024-05-21 05:07 | P.PN ---
Subjective Progress Note Date: 05/20/24 This is a 68-year-old female who was recently admitted with acute UTI with group D Enterococcus and also candidemia with infectious disease, nephrology, urology following. Patient is maintained on IV antibiotics and will receive a midline and continue on antibiotics in the outpatient setting. Patient with generalized weakness and need for antibiotics will be going to ECF and currently awaiting PT/OT therapy evaluation. Most recent blood cultures have been negative. Patient is afebrile with no reports of chest pain or shortness of breath. Patient has been tolerating diet with no reported nausea or vomiting. 05/19/2024 Patient is seen in follow-up today maintained on IV antibiotics and has received a midline. Plan is for patient to go on IV daptomycin along with oral antifungals. Patient is afebrile with no reported chest pain or shortness of breath. Patient reports to feeling improved and would like to go home with nephrology and urology following. Patient will need outpatient follow-up with urology. Patient does have significant history of anxiety with depression and bipolar disorder with borderline personality disorder and follows with [facility] outpatient. Patient will not be able to self administer antibiotics via IV safely even with the help of home care in the outpatient setting and will need to go to ECF for continued IV antibiotic therapy to complete the course. Plan is for daptomycin every 48 hours for 5 doses to complete the course for Enterococcus UTI. Case management/social work is following as patient will require insurance authorization and has been accepted at [facility] pending authorization. 05/20/2024 Patient is seen in follow-up today continuing to await for insurance authorization for ECF. Insurance has denied and recommending peer to peer. Social work is following working on discharge planning including possible home with home care although there is currently no home care available that could accommodate every other day antibiotics and working on looking into other options regarding possible ECF. Patient is maintained on antibiotics and has re ceived a midline with infectious disease following and will be continued on daptomycin on discharge. Patient is extremely nervous and anxious about going home and having home care with IV antibiotics in the outpatient setting. Will discuss further with social work regarding discharge planning. Patient is afebrile denies chest pain or shortness of breath. Patient has been tolerating diet with no reported nausea or vomiting. Review of systems: Constitutional: No reports of fatigue, fever, or chills Cardiovascular: No reports of chest pain or palpitations Respiratory: No reports of shortness of breath or cough GI: No reports of nausea, no reports of vomiting, no diarrhea : No reports of dysuria, had retention Neurovascular: reports of generalized weakness All medications have been reviewed PHYSICAL EXAMINATION: GENERAL: The patient is alert and oriented x3, Well developed, well nourished. Anxious, morbidly obese HEENT: Pupils are round and equally reacting to light. EOMI. no scleral icterus. No conjunctival pallor. Normocephalic, atraumatic. No pharyngeal erythema. No thyromegaly. CARDIOVASCULAR: S1 and S2 muffled PULMONARY: diminished breath sounds bilaterally with no wheezing or rhonchi noted. ABDOMEN: soft. Nontender on exam. obese. non-distended, normoactive bowel sounds. No palpable organomegaly. MUSCULOSKELETAL: No joint swelling or deformity. EXTREMITIES: No cyanosis, clubbing, or pedal edema. NEUROLOGICAL: Gross neurological examination did not reveal any focal deficits. Diffuse weakness SKIN: No rashes. Assessment: Acute urinary tract infection with group D Enterococcus, present on admission Candidemia Hydronephrosis with bilateral ureteral stent placement Elevated creatinine likely secondary to obstructive uropathy, improving Diabetes mellitus, type II History of anxiety, bipolar depression with borderline personality disorder Morbid obesity with a BMI of 49.9 GI prophylaxis DVT prophylaxis Full code Plan: Recommend to continue with current medications and management with infectious disease, urology, nephrology following Patient is continued on antibiotics along with antifungals in the form of daptomycin and anidulafungin and will continue daptomycin every 48 hours for 5 doses as well as oral Diflucan. Patient has received a midline Planning on going to ECF with case management/social work following although insurance requesting peer to peer which was denied stating she can return home and have home care arranged for antibiotics. Currently there is no home care available to provide every other day IV antibiotics and social work is working on other options of discharge planning. Patient currently lives alone and has no help in the home to be able to manage IV antibiotic therapy even with the assistance of home care and do not feel this is a safe discharge given patient has significant mental health history and appears cognitively delayed. Patient would benefit from ECF for short stay to complete IV antibiotic therapy Patient will require outpatient follow-up with urology as well as nephrology Follow-up with repeat labs Due to multiple complex medical issues, prognosis is guarded The impression and plan of care has been dictated by Urszula Batres, nurse practitioner as directed. Dr. Andrew MD I have performed a history and examination and MDM of this patient, discussed the same with the dictator, and agree with the dictator's assessment and plan as written ,documented as a scribe. Based on total visit time, I have performed more than 50% of the visit. Any additional findings or plans will be noted. Surgery can be manage Fucking know before I get in there Objective - Vital Signs Vital signs: Vital Signs Temp 97.4 F L 05/21/24 01:27 Pulse 61 05/21/24 01:27 Resp 18 05/21/24 01:27 BP 95/62 05/21/24 01:27 Pulse Ox 96 05/21/24 01:27 FiO2 Intake & Output 05/20/24 05/20/24 05/21/24 06:59 18:59 06:59 Intake Total 240 Balance 240 Intake: Oral 240 Other: Voiding Method Bedside Commode Bedside Commode Bedside Commode # Voids 4 - Labs CBC & Chem 7: 05/19/24 05:54 05/19/24 05:54 Labs: Microbiology - Last 24 Hours (Table) 05/14/24 15:30 Blood Culture - Final Blood
[2024-05-21 06:11] LABS: Glucose,Whole Blood 87 mg/dL (70-110)
[2024-05-21 08:10] LABS: Basophils % (A) 0 %; Eosinophils # (A) 0.5 k/uL (0-0.7); Eosinophils % (A) 5 %; HCT 32.4 % (34.0-46.0); Hypochromasia Slight; Lymphocytes # (A) 1.9 k/uL (1.0-4.8); Lymphocytes % (A) 20 %; MCH 28.4 pg (25.0-35.0); MCHC 30.6 g/dL (31.0-37.0); Mean Platelet Volume 9.2; Monocytes # (A) 0.7 k/uL (0-1.0); Monocytes % (A) 8 %; Neutrophils % (A) 64 %; Platelet Count 284 k/uL (150-450); RBC 3.49 m/uL (3.80-5.40); RDW 15.2 % (11.5-15.5); WBC 9.4 k/uL (3.8-10.6)
[2024-05-21 08:11] LABS: African American GFR (CKD) 18 (>60 ml/min/1.73 sqM); Anion Gap 7 mmol/L; Blood Urea Nitrogen 27 mg/dL (7-17); Calcium 8.8 mg/dL (8.4-10.2); Carbon Dioxide 26 mmol/L (22-30); Chloride 107 mmol/L (98-107); Glucose 83 mg/dL (74-99); Non-African American GFR(CKD) 16 (>60 ml/min/1.73 sqM); Potassium 4.7 mmol/L (3.5-5.1); Sodium 140 mmol/L (137-145)
[2024-05-21 08:12] LABS: HGB 9.9 gm/dL (11.4-16.0)
[2024-05-21 11:48] LABS: Glucose,Whole Blood 76 mg/dL (70-110)
--- NOTE | 2024-05-21 13:48 | P.PN ---
Subjective Progress Note Date: 05/21/24 Patient is seen in follow-up for acute kidney injury. Renal function stable as of yesterday. Oral intake fair. Admits to good urine output. No active complaints. Vital signs are stable. General: No acute distress. Sitting up in chair. HEENT: Head exam is unremarkable. LUNGS: No audible rhonchi or wheezes. HEART: Rate and Rhythm are regular. ABDOMEN: Obese, nontender. EXTREMITITES: Trace edema. Objective - Vital Signs Vital signs: Vital Signs Temp 97.5 F L 05/21/24 07:10 Pulse 65 05/21/24 07:10 Resp 17 05/21/24 07:10 BP 121/75 05/21/24 07:10 Pulse Ox 100 05/21/24 07:10 FiO2 Intake & Output 05/20/24 05/21/24 05/21/24 18:59 06:59 18:59 Other: Voiding Method Bedside Commode Bedside Commode Bedside Commode # Voids 2 - Labs CBC & Chem 7: 05/21/24 06:44 05/21/24 06:44 Labs: Abnormal Lab Results - Last 24 Hours (Table) 05/21/24 05/21/24 Range/Units 06:44 06:44 RBC 3.49 L (3.80-5.40) m/uL Hgb 9.9 L D (11.4-16.0) gm/dL Hct 32.4 L (34.0-46.0) % MCHC 30.6 L (31.0-37.0) g/dL BUN 27 H (7-17) mg/dL Creatinine 2.94 H (0.52-1.04) mg/dL Assessment and Plan Assessment: 1. Acute kidney injury secondary to ATN secondary to severe sepsis. Creatinine 4.7 on admission and is stable at 2.9 today 2. Chronic kidney disease stage IIIa with baseline creatinine 1.1-1.2 in January 2018. 3. Vangie bacteremia and Enterococcus UTI on antibiotics and antifungal. ID following. 4. Bilateral hydronephrosis with nephrolithiasis status post cystoscopy and bilateral ureteral stents placement in April 2024. Urology following 5. Metabolic acidosis secondary to acute kidney injury. Improved. 6. Lower extremity edema. 7. Hypomagnesemia from poor intake and GI losses. On oral magnesium oxide. Better. Plan: Avoid nephrotoxins. Continue to monitor renal function and urine output. Encourage oral intake. Status post IV Lasix given May 18, 2024. Patient advised to follow-up outpatient 1 week postdischarge.
[2024-05-21] MEDS: FLUCONAZOLE 100 MG TAB PO SCH (15:59)
--- NOTE | 2024-05-21 16:23 | P.PN ---
Subjective Progress Note Date: 05/21/24 Principal diagnosis: Reason for follow-up is complicated UTI and candidemia sudheer is a 68-year-old female with a past medical history negative for diabetes mellitus reflux pneumonia thyroid disorder presenting to the hospital yesterday afternoon as a transfer from [facility] where the patient has been diagnosed with UTI and the patient was noticed to have worsening kidney function CT did shows evidence of kidney stone patient is status post bilateral ureteral stent placement. Blood cultures came back positive with Vangie. On today's evaluation that is 05/21/2024,the patient remains to be afebrile, patient is on room air not requiring supplemental oxygen and denies any shortness of breath no chest pain or cough.Patient denies having any nausea or vomiting, no abdominal pain and no diarrhea has been reported, currently waiting for placement. Patient white count is 9.4, creatinine is 2.94 blood culture repeat has been negative Objective - Vital Signs Vital signs: Vital Signs Temp 97.5 F L 05/21/24 07:10 Pulse 65 05/21/24 07:10 Resp 17 05/21/24 07:10 BP 121/75 05/21/24 07:10 Pulse Ox 100 05/21/24 07:10 FiO2 Intake & Output 05/20/24 05/21/24 05/21/24 18:59 06:59 18:59 Other: Voiding Method Bedside Commode Bedside Commode Bedside Commode # Voids 2 - Exam GENERAL DESCRIPTION: An elderly female up in the chair in no distress RESPIRATORY SYSTEM: Unlabored breathing , decreased breath sounds at bases HEART: S1 S2 regular rate and rhythm , ABDOMEN: Soft , no tenderness EXTREMITIES: No edema feet - Labs CBC & Chem 7: 05/21/24 06:44 05/21/24 06:44 Labs: Abnormal Lab Results - Last 24 Hours (Table) 05/21/24 05/21/24 Range/Units 06:44 06:44 RBC 3.49 L (3.80-5.40) m/uL Hgb 9.9 L D (11.4-16.0) gm/dL Hct 32.4 L (34.0-46.0) % MCHC 30.6 L (31.0-37.0) g/dL BUN 27 H (7-17) mg/dL Creatinine 2.94 H (0.52-1.04) mg/dL Assessment and Plan (1) Complicated UTI (urinary tract infection) Current Visit: Yes Status: Acute Code(s): N39.0 - URINARY TRACT INFECTION, SITE NOT SPECIFIED SNOMED Code(s): 82960787 (2) Candidemia Current Visit: Yes Status: Acute Code(s): B37.7 - CANDIDAL SEPSIS SNOMED Code(s): 526540901 (3) Diarrhea Current Visit: Yes Status: Acute Code(s): R19.7 - DIARRHEA, UNSPECIFIED SNOMED Code(s): 60507215 Plan: 1patient with a complicated urinary tract infection with evidence of bilateral kidney stone requiring cystoscopy and bilateral ureteral stent placement will need to call for the enteric gram-negative to be the likely pathogen 2-urine culture currently growing Enterococcus faecium that is resistant to ampicillin, blood culture positive for Vangie, repeat blood culture has been negative 3-patient to continue with daptomycin and Diflucan 200 g p.o. daily to finish her course of therapy Dictation was produced using [employer] dictation software. please excuse any grammatical, word or spelling errors. Time with Patient: Less than 30
[2024-05-21 16:54] LABS: Glucose,Whole Blood 81 mg/dL (70-110)
--- NOTE | 2024-05-22 06:06 | P.PN ---
Subjective Progress Note Date: 05/21/24 This is a 68-year-old female who was recently admitted with acute UTI with group D Enterococcus and also candidemia with infectious disease, nephrology, urology following. Patient is maintained on IV antibiotics and will receive a midline and continue on antibiotics in the outpatient setting. Patient with generalized weakness and need for antibiotics will be going to ECF and currently awaiting PT/OT therapy evaluation. Most recent blood cultures have been negative. Patient is afebrile with no reports of chest pain or shortness of breath. Patient has been tolerating diet with no reported nausea or vomiting. 05/19/2024 Patient is seen in follow-up today maintained on IV antibiotics and has received a midline. Plan is for patient to go on IV daptomycin along with oral antifungals. Patient is afebrile with no reported chest pain or shortness of breath. Patient reports to feeling improved and would like to go home with nephrology and urology following. Patient will need outpatient follow-up with urology. Patient does have significant history of anxiety with depression and bipolar disorder with borderline personality disorder and follows with [facility] outpatient. Patient will not be able to self administer antibiotics via IV safely even with the help of home care in the outpatient setting and will need to go to ECF for continued IV antibiotic therapy to complete the course. Plan is for daptomycin every 48 hours for 5 doses to complete the course for Enterococcus UTI. Case management/social work is following as patient will require insurance authorization and has been accepted at [facility] pending authorization. 05/20/2024 Patient is seen in follow-up today continuing to await for insurance authorization for ECF. Insurance has denied and recommending peer to peer. Social work is following working on discharge planning including possible home with home care although there is currently no home care available that could accommodate every other day antibiotics and working on looking into other options regarding possible ECF. Patient is maintained on antibiotics and has re ceived a midline with infectious disease following and will be continued on daptomycin on discharge. Patient is extremely nervous and anxious about going home and having home care with IV antibiotics in the outpatient setting. Will discuss further with social work regarding discharge planning. Patient is afebrile denies chest pain or shortness of breath. Patient has been tolerating diet with no reported nausea or vomiting. 05/21/2024 Patient is seen in follow-up this morning with no acute overnight issues noted. Given the holiday there is no available case management staff or insurance wor surya today to verify if patient will be going to ECF or arranging for home with home care. Social work following and will follow-up with on Saturday regarding discharge planning. Patient is afebrile with no reports of chest pain or shortness of breath. Patient continues to report she wants to be discharged. Patient has been tolerating diet with no reported nausea or pain noted. Encouraged to increase activity as tolerated. Review of systems: Constitutional: No reports of fatigue, fever, or chills Cardiovascular: No reports of chest pain or palpitations Respiratory: No reports of shortness of breath or cough GI: No reports of nausea, no reports of vomiting, no diarrhea : No reports of dysuria, had retention Neurovascular: reports of generalized weakness All medications have been reviewed PHYSICAL EXAMINATION: GENERAL: The patient is alert and oriented x3, Well developed, well nourished. Anxious, morbidly obese HEENT: Pupils are round and equally reacting to light. EOMI. no scleral icterus. No conjunctival pallor. Normocephalic, atraumatic. No pharyngeal erythema. No thyromegaly. CARDIOVASCULAR: S1 and S2 muffled PULMONARY: diminished breath sounds bilaterally with no wheezing or rhonchi noted. ABDOMEN: soft. Nontender on exam. obese. non-distended, normoactive bowel sounds. No palpable organomegaly. MUSCULOSKELETAL: No joint swelling or deformity. EXTREMITIES: No cyanosis, clubbing, or pedal edema. NEUROLOGICAL: Gross neurological examination did not reveal any focal deficits. Diffuse weakness SKIN: No rashes. Assessment: Acute urinary tract infection with group D Enterococcus, present on admission Candidemia, improved, repeat blood cultures negative Hydronephrosis with bilateral ureteral stent placement Elevated creatinine likely secondary to obstructive uropathy, improving Diabetes mellitus, type II History of anxiety, bipolar depression with borderline personality disorder Morbid obesity with a BMI of 49.9 GI prophylaxis DVT prophylaxis Full code Plan: Recommend to continue with current medications and management with infectious disease, urology, nephrology following Patient is continued on antibiotics along with antifungals in the form of daptomycin and anidulafungin and will continue daptomycin every 48 hours for 5 doses as well as oral Diflucan. Patient has received a midline Planning on going to ECF with case management/social work following although insurance requesting peer to peer which was denied stating she can return home and have home care arranged for antibiotics. Currently there is no home care available to provide every other day IV antibiotics and social work is working on other options of discharge planning. Patient currently lives alone and has no help in the home to be able to manage IV antibiotic therapy even with the assistance of home care and do not feel this is a safe discharge given patient has significant mental health history and appears cognitively delayed. Patient would benefit from ECF for short stay to complete IV antibiotic therapy Patient will require outpatient follow-up with urology as well as nephrology Follow-up with repeat labs Due to multiple complex medical issues, prognosis is guarded Possible discharge planning in the next 24 hours once staff is available to determine appropriate discharge plan. The impression and plan of care has been dictated by Urszula Batres, nurse practitioner as directed. Dr. Andrew MD I have performed a history and examination and MDM of this patient, discussed the same with the dictator, and agree with the dictator's assessment and plan as written ,documented as a scribe. Based on total visit time, I have performed more than 50% of the visit. Any additional findings or plans will be noted. Surgery can be manage Fucking know before I get in there Objective - Vital Signs Vital signs: Vital Signs Temp 97.6 F 05/22/24 01:58 Pulse 66 05/22/24 01:58 Resp 16 05/22/24 01:58 BP 104/69 05/22/24 01:58 Pulse Ox 94 L 05/22/24 01:58 FiO2 Intake & Output 05/21/24 05/21/24 05/22/24 06:59 18:59 06:59 Other: Voiding Method Bedside Commode Bedside Commode Bedside Commode # Voids 2 10 # Bowel Movements 3 - Labs CBC & Chem 7: 05/21/24 06:44 05/21/24 06:44 Labs: Abnormal Lab Results - Last 24 Hours (Table) 05/21/24 05/21/24 Range/Units 06:44 06:44 RBC 3.49 L (3.80-5.40) m/uL Hgb 9.9 L D (11.4-16.0) gm/dL Hct 32.4 L (34.0-46.0) % MCHC 30.6 L (31.0-37.0) g/dL BUN 27 H (7-17) mg/dL Creatinine 2.94 H (0.52-1.04) mg/dL
[2024-05-22 07:01] LABS: Glucose,Whole Blood 96 mg/dL (70-110)
[2024-05-22 12:14] LABS: Glucose,Whole Blood 101 mg/dL (70-110)
--- NOTE | 2024-05-22 14:05 | P.PN ---
Subjective Progress Note Date: 05/22/24 This is a 68-year-old female who was recently admitted with acute UTI with group D Enterococcus and also candidemia with infectious disease, nephrology, urology following. Patient is maintained on IV antibiotics and will receive a midline and continue on antibiotics in the outpatient setting. Patient with generalized weakness and need for antibiotics will be going to ECF and currently awaiting PT/OT therapy evaluation. Most recent blood cultures have been negative. Patient is afebrile with no reports of chest pain or shortness of breath. Patient has been tolerating diet with no reported nausea or vomiting. 05/19/2024 Patient is seen in follow-up today maintained on IV antibiotics and has received a midline. Plan is for patient to go on IV daptomycin along with oral antifungals. Patient is afebrile with no reported chest pain or shortness of breath. Patient reports to feeling improved and would like to go home with nephrology and urology following. Patient will need outpatient follow-up with urology. Patient does have significant history of anxiety with depression and bipolar disorder with borderline personality disorder and follows with [facility] outpatient. Patient will not be able to self administer antibiotics via IV safely even with the help of home care in the outpatient setting and will need to go to ECF for continued IV antibiotic therapy to complete the course. Plan is for daptomycin every 48 hours for 5 doses to complete the course for Enterococcus UTI. Case management/social work is following as patient will require insurance authorization and has been accepted at [facility] pending authorization. 05/20/2024 Patient is seen in follow-up today continuing to await for insurance authorization for ECF. Insurance has denied and recommending peer to peer. Social work is following working on discharge planning including possible home with home care although there is currently no home care available that could accommodate every other day antibiotics and working on looking into other options regarding possible ECF. Patient is maintained on antibiotics and has received a midline with infectious disease following and will be continued on daptomycin on discharge. Patient is extremely nervous and anxious about going home and having home care with IV antibiotics in the outpatient setting. Will discuss further with social work regarding discharge planning. Patient is afebrile denies chest pain or shortness of breath. Patient has been tolerating diet with no reported nausea or vomiting. 05/21/2024 Patient is seen in follow-up this morning with no acute overnight issues noted. Given the holiday there is no available case management staff or insurance working today to verify if patient will be going to ECF or arranging for home with home care. Social work following and will follow-up with on Saturday regarding discharge planning. Patient is afebrile with no reports of chest pain or shortness of breath. Patient continues to report she wants to be discharged. Patient has been tolerating diet with no reported nausea or pain noted. Encouraged to increase activity as tolerated. 05/22. Patient seen and examined. No acute overnight. Vital signs stable REVIEW OF SYSTEMS: CONSTITUTIONAL: No fever, no malaise,. CARDIOVASCULAR: No chest pain, no palpitations, no syncope. PULMONARY: No shortness of breath, no cough, GASTROINTESTINAL: No diarrhea, no nausea, no vomiting, no abdominal pain. NEUROLOGICAL: No headaches, no weakness, PHYSICAL EXAMINATION: GENERAL: The patient is alert and oriented x3, not in any acute distress. Well developed, well nourished. HEENT: Pupils are round and equally reacting to light. EOMI. No scleral icterus. No conjunctival pallor. Normocephalic, atraumatic. No pharyngeal erythema. No thyromegaly. CARDIOVASCULAR: S1 and S2 present. No murmurs, rubs, or gallops. PULMONARY: Chest is clear to auscultation, no wheezing or crackles. ABDOMEN: Soft, nontender, nondistended, normoactive bowel sounds. No palpable organomegaly. MUSCULOSKELETAL: No joint swelling or deformity. EXTREMITIES: No cyanosis, clubbing, or pedal edema. NEUROLOGICAL: Gross neurological examination did not reveal any focal deficits. SKIN: No rashes. Assessment and plan Acute urinary tract infection with group D Enterococcus, present on admission Candidemia, improved, repeat blood cultures negative Hydronephrosis with bilateral ureteral stent placement Elevated creatinine likely secondary to obstructive uropathy, improving Diabetes mellitus, type II History of anxiety, bipolar depression with borderline personality disorder Morbid obesity with a BMI of 49.9 Monitor vital signs monitor CBC monitor CMP Continue daptomycin continue Synthroid Continue Diflucan continue cholestyramine ID following Labs and medication were reviewed.. Continue same treatment. Continue with symptomatic treatment. Resume home medication. Monitor labs and vitals. DVT and GI prophylaxis. Further recommendations as per clinical course of the patient Dictation was produced using [employer] dictation software. please excuse any gr ammatical, word or spelling errors. Objective - Vital Signs Vital signs: Vital Signs Temp 97.4 F L 05/22/24 07:57 Pulse 67 05/22/24 07:57 Resp 18 05/22/24 07:57 BP 112/69 05/22/24 07:57 Pulse Ox 100 05/22/24 07:57 FiO2 Intake & Output 05/21/24 05/22/24 05/22/24 18:59 06:59 18:59 Other: Voiding Method Bedside Commode Bedside Commode Bedside Commode # Voids 10 # Bowel Movements 3 - Labs CBC & Chem 7: 05/21/24 06:44 05/21/24 06:44
--- NOTE | 2024-05-22 14:35 | P.PN ---
Subjective Progress Note Date: 05/22/24 Patient is seen in follow-up for acute kidney injury. Renal function stable as of yesterday. Oral intake fair. Admits to good urine output. No active complaints. Vital signs are stable. General: No acute distress. Sitting up in chair. HEENT: Head exam is unremarkable. LUNGS: No audible rhonchi or wheezes. HEART: Rate and Rhythm are regular. ABDOMEN: Obese, nontender. EXTREMITITES: Trace edema. Objective - Vital Signs Vital signs: Vital Signs Temp 97.4 F L 05/22/24 07:57 Pulse 67 05/22/24 07:57 Resp 18 05/22/24 07:57 BP 112/69 05/22/24 07:57 Pulse Ox 100 05/22/24 07:57 FiO2 Intake & Output 05/21/24 05/22/24 05/22/24 18:59 06:59 18:59 Other: Voiding Method Bedside Commode Bedside Commode Bedside Commode # Voids 10 # Bowel Movements 3 - Labs CBC & Chem 7: 05/21/24 06:44 05/21/24 06:44 Assessment and Plan Assessment: 1. Acute kidney injury secondary to ATN secondary to severe sepsis. Creatinine 4.7 on admission and is stable at 2.9 2. Chronic kidney disease stage IIIa with baseline creatinine 1.1-1.2 in January 2018. 3. Vangie bacteremia and Enterococcus UTI on antibiotics and antifungal. ID following. 4. Bilateral hydronephrosis with nephrolithiasis status post cystoscopy and bilateral ureteral stents placement in April 2024. Urology following 5. Metabolic acidosis secondary to acute kidney injury. Improved. 6. Lower extremity edema. 7. Hypomagnesemia from poor intake and GI losses. On oral magnesium oxide. Better. Plan: Avoid nephrotoxins. Continue to monitor renal function and urine output. Encourage oral intake. Status post IV Lasix given May 18, 2024. Patient advised to follow-up outpatient 1 week postdischarge.
--- NOTE | 2024-05-22 14:59 | P.PN ---
Subjective Progress Note Date: 05/22/24 Principal diagnosis: Reason for follow-up is complicated UTI and candidemia sudheer is a 68-year-old female with a past medical history negative for diabetes mellitus reflux pneumonia thyroid disorder presenting to the hospital yesterday afternoon as a transfer from [facility] where the patient has been diagnosed with UTI and the patient was noticed to have worsening kidney function CT did shows evidence of kidney stone patient is status post bilateral ureteral stent placement. Blood cultures came back positive with Vangie. On today's evaluation that is 05/22/2024, the patient continues to be afebrile, the patient is on room air and breathing comfortably, the Pt denies having any chest pain or cough, the patient denies having any abdominal pain no vomiting or any diarrhea did have some improvement in urinary symptoms. No new labs has been obtained today Objective - Vital Signs Vital signs: Vital Signs Temp 97.4 F L 05/22/24 07:57 Pulse 67 05/22/24 07:57 Resp 18 05/22/24 07:57 BP 112/69 05/22/24 07:57 Pulse Ox 100 05/22/24 07:57 FiO2 Intake & Output 05/21/24 05/22/24 05/22/24 18:59 06:59 18:59 Other: Voiding Method Bedside Commode Bedside Commode Bedside Commode # Voids 10 # Bowel Movements 3 - Exam GENERAL DESCRIPTION: An elderly female up in the chair in no distress RESPIRATORY SYSTEM: Unlabored breathing , decreased breath sounds at bases HEART: S1 S2 regular rate and rhythm , ABDOMEN: Soft , no tenderness EXTREMITIES: No edema feet - Labs CBC & Chem 7: 05/21/24 06:44 05/21/24 06:44 Assessment and Plan (1) Complicated UTI (urinary tract infection) Current Visit: Yes Status: Acute Code(s): N39.0 - URINARY TRACT INFECTION, SITE NOT SPECIFIED SNOMED Code(s): 15759991 (2) Candidemia Current Visit: Yes Status: Acute Code(s): B37.7 - CANDIDAL SEPSIS SNOMED Code(s): 569986728 (3) Diarrhea Current Visit: Yes Status: Acute Code(s): R19.7 - DIARRHEA, UNSPECIFIED SNOMED Code(s): 88175956 Plan: 1patient with a complicated urinary tract infection with evidence of bilateral kidney stone requiring cystoscopy and bilateral ureteral stent placement will need to call for the enteric gram-negative to be the likely pathogen 2-urine culture currently growing Enterococcus faecium that is resistant to ampicillin, blood culture positive for Vangie, repeat blood culture has been negative 3-patient slowly clinical improvement remains to be afebrile currently waiting for placement, to continue with daptomycin and Diflucan 200 g p.o. daily to finish her course of therapy and monitor clinical course closely Dictation was produced using [employer] dictation software. please excuse any grammatical, word or spelling errors. Time with Patient: Less than 30
[2024-05-22 16:27] LABS: Glucose,Whole Blood 117 mg/dL (70-110)
[2024-05-22 21:08] LABS: Glucose,Whole Blood 125 mg/dL (70-110)
[2024-05-23 06:26] LABS: Glucose,Whole Blood 97 mg/dL (70-110)
[2024-05-23 11:07] LABS: Glucose,Whole Blood 109 mg/dL (70-110)
--- NOTE | 2024-05-23 12:54 | P.PN ---
Subjective Patient is seen for follow-up for acute kidney injury. status post cystoscopy and bilateral ureteral stent placement for bilateral hydronephrosis and kidney stones on 05/11/2024. Renal function has been stable with serum creatinine at about 2.9 mg/dL. no significant complaints today. 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 Acute kidney injury, ATN secondary to sepsis and hypotension. Currently nonoliguric and improving. Patient is status post IV fluids.. No nephrotoxic agents identified. 2. Sepsis with UTI, urine culture growing group D enterococcus and blood c ultures growing Vangie. Maintained on antifungal and antibiotics and being followed by ID. 3. Bilateral hydronephrosis with bilateral nephrolithiasis, status post cystoscopy and bilateral ureteral stent placement 4. History of nephrolithiasis 5. Anion gap metabolic acidosis associated with acute kidney injury Plan: Continue midodrine Continue with antibiotics as per ID follow-up as outpatient for acute kidney injury and CK D
--- NOTE | 2024-05-23 14:27 | P.PN ---
Subjective Progress Note Date: 05/23/24 This is a 68-year-old female who was recently admitted with acute UTI with group D Enterococcus and also candidemia with infectious disease, nephrology, urology following. Patient is maintained on IV antibiotics and will receive a midline and continue on antibiotics in the outpatient setting. Patient with generalized weakness and need for antibiotics will be going to ECF and currently awaiting PT/OT therapy evaluation. Most recent blood cultures have been negative. Patient is afebrile with no reports of chest pain or shortness of breath. Patient has been tolerating diet with no reported nausea or vomiting. 05/19/2024 Patient is seen in follow-up today maintained on IV antibiotics and has received a midline. Plan is for patient to go on IV daptomycin along with oral antifungals. Patient is afebrile with no reported chest pain or shortness of breath. Patient reports to feeling improved and would like to go home with nephrology and urology following. Patient will need outpatient follow-up with urology. Patient does have significant history of anxiety with depression and bipolar disorder with borderline personality disorder and follows with [facility] outpatient. Patient will not be able to self administer antibiotics via IV safely even with the help of home care in the outpatient setting and will need to go to ECF for continued IV antibiotic therapy to complete the course. Plan is for daptomycin every 48 hours for 5 doses to complete the course for Enterococcus UTI. Case management/social work is following as patient will require insurance authorization and has been accepted at [facility] pending authorization. 05/20/2024 Patient is seen in follow-up today continuing to await for insurance authorization for ECF. Insurance has denied and recommending peer to peer. Social work is following working on discharge planning including possible home with home care although there is currently no home care available that could accommodate every other day antibiotics and working on looking into other options regarding possible ECF. Patient is maintained on antibiotics and has received a midline with infectious disease following and will be continued on daptomycin on discharge. Patient is extremely nervous and anxious about going home and having home care with IV antibiotics in the outpatient setting. Will discuss further with social work regarding discharge planning. Patient is afebrile denies chest pain or shortness of breath. Patient has been tolerating diet with no reported nausea or vomiting. 05/21/2024 Patient is seen in follow-up this morning with no acute overnight issues noted. Given the holiday there is no available case management staff or insurance working today to verify if patient will be going to ECF or arranging for home with home care. Social work following and will follow-up with on Saturday regarding discharge planning. Patient is afebrile with no reports of chest pain or shortness of breath. Patient continues to report she wants to be discharged. Patient has been tolerating diet with no reported nausea or pain noted. Encouraged to increase activity as tolerated. 05/22. Patient seen and examined. No acute overnight. Vital signs stable 05/23. Patient seen and examined. Currently sitting upright in the bed, no acute issues overnight. REVIEW OF SYSTEMS: CONSTITUTIONAL: No fever, no malaise,. CARDIOVASCULAR: No chest pain, no palpitations, no syncope. PULMONARY: No shortness of breath, no cough, GASTROINTESTINAL: No diarrhea, no nausea, no vomiting, no abdominal pain. NEUROLOGICAL: No headaches, no weakness, PHYSICAL EXAMINATION: GENERAL: The patient is alert and oriented x3, not in any acute distress. Well developed, well nourished. HEENT: Pupils are round and equally reacting to light. EOMI. No scleral icterus. No conjunctival pallor. Normocephalic, atraumatic. No pharyngeal erythema. No thyromegaly. CARDIOVASCULAR: S1 and S2 present. No murmurs, rubs, or gallops. PULMONARY: Chest is clear to auscultation, no wheezing or crackles. ABDOMEN: Soft, nontender, nondistended, normoactive bowel sounds. No palpable organomegaly. MUSCULOSKELETAL: No joint swelling or deformity. EXTREMITIES: No cyanosis, clubbing, or pedal edema. NEUROLOGICAL: Gross neurological examination did not reveal any focal deficits. SKIN: No rashes. Assessment and plan Acute urinary tract infection with group D Enterococcus, present on admission Candidemia, improved, repeat blood cultures negative Hydronephrosis with bilateral ureteral stent placement Elevated creatinine likely secondary to obstructive uropathy, improving Diabetes mellitus, type II History of anxiety, bipolar depression with borderline personality disorder Morbid obesity with a BMI of 49.9 Monitor vital signs monitor CBC monitor CMP Continue daptomycin continue Synthroid Continue Diflucan continue cholestyramine ID following Labs and medication were reviewed.. Continue same treatment. Continue with symptomatic treatment. Resume home medication. Monitor labs and vitals. DVT and GI prophylaxis. Further recommendations as per clinical course of the patient Dictation was produced using [employer] dictation software. please excuse any gra mmatical, word or spelling errors. Objective - Vital Signs Vital signs: Vital Signs Temp 97.3 F L 05/23/24 07:35 Pulse 67 05/23/24 07:35 Resp 18 05/23/24 07:35 BP 97/65 05/23/24 07:35 Pulse Ox 96 05/23/24 07:35 FiO2 Intake & Output 05/22/24 05/23/24 05/23/24 18:59 06:59 18:59 Other: Voiding Method Bedside Commode Bedside Commode # Voids 2 3 # Bowel Movements 1 - Labs CBC & Chem 7: 05/21/24 06:44 05/21/24 06:44 Labs: Abnormal Lab Results - Last 24 Hours (Table) 05/22/24 05/22/24 Range/Units 16:26 21:06 POC Glucose (mg/dL) 117 H 125 H (70-110) mg/dL
--- NOTE | 2024-05-23 15:19 | P.PN ---
Subjective Progress Note Date: 05/23/24 Principal diagnosis: Reason for follow-up is complicated UTI and candidemia sudheer is a 68-year-old female with a past medical history negative for diabetes mellitus reflux pneumonia thyroid disorder presenting to the hospital yesterday afternoon as a transfer from [facility] where the patient has been diagnosed with UTI and the patient was noticed to have worsening kidney function CT did shows evidence of kidney stone patient is status post bilateral ureteral stent placement. Blood cultures came back positive with Vangie. On today's evaluation that is 05/23/2024, Patient is afebrile patient is currently on room air and denies having any shortness of breath, the patient denies any chest pain or cough, the patient denies any nausea vomiting did not have any abdominal pain and no diarrhea no new symptoms. No new lab has been repeated today Objective - Vital Signs Vital signs: Vital Signs Temp 97.3 F L 05/23/24 07:35 Pulse 67 05/23/24 07:35 Resp 18 05/23/24 07:35 BP 97/65 05/23/24 07:35 Pulse Ox 96 05/23/24 07:35 FiO2 Intake & Output 05/22/24 05/23/24 05/23/24 18:59 06:59 18:59 Other: Voiding Method Bedside Commode Bedside Commode # Voids 2 3 # Bowel Movements 1 - Exam GENERAL DESCRIPTION: An elderly female up in the chair in no distress RESPIRATORY SYSTEM: Unlabored breathing , decreased breath sounds at bases HEART: S1 S2 regular rate and rhythm , ABDOMEN: Soft , no tenderness EXTREMITIES: No edema feet - Labs CBC & Chem 7: 05/21/24 06:44 05/21/24 06:44 Labs: Abnormal Lab Results - Last 24 Hours (Table) 05/22/24 05/22/24 Range/Units 16:26 21:06 POC Glucose (mg/dL) 117 H 125 H (70-110) mg/dL Assessment and Plan (1) Complicated UTI (urinary tract infection) Current Visit: Yes Status: Acute Code(s): N39.0 - URINARY TRACT INFECTION, SITE NOT SPECIFIED SNOMED Code(s): 09459056 (2) Candidemia Current Visit: Yes Status: Acute Code(s): B37.7 - CANDIDAL SEPSIS SNOMED Code(s): 548527332 (3) Diarrhea Current Visit: Yes Status: Acute Code(s): R19.7 - DIARRHEA, UNSPECIFIED SNOMED Code(s): 05945814 Plan: 1patient with a complicated urinary tract infection with evidence of bilateral kidney stone requiring cystoscopy and bilateral ureteral stent placement will ne ed to call for the enteric gram-negative to be the likely pathogen 2-urine culture currently growing Enterococcus faecium that is resistant to ampicillin, blood culture positive for Vangie, repeat blood culture has been negative 3-patient remains to be afebrile unfortunately patient was unable to go to alf to get her antibiotics we will continue daptomycin over the weekend and then consider oral Diflucan for discharge with her urinary symptoms will obtain UA check a CBC and a BMP with a.m. lab Dictation was produced using [employer] dictation software. please excuse any grammatical, word or spelling errors. Time with Patient: Less than 30
[2024-05-23 16:54] LABS: Glucose,Whole Blood 115 mg/dL (70-110)
[2024-05-23 21:06] LABS: Glucose,Whole Blood 108 mg/dL (70-110)
[2024-05-24 06:24] LABS: Glucose,Whole Blood 106 mg/dL (70-110)
[2024-05-24 09:56] LABS: Basophils # (A) 0.07 X 10*3/uL (0.00-0.10); Basophils % (A) 0.7 %; Eosinophils # (A) 0.45 X 10*3/uL (0.04-0.35); Eosinophils % (A) 4.3 %; HCT 31.9 % (37.2-46.3); HGB 9.8 g/dL (12.0-15.0); Lymphocytes # (A) 2.03 X 10*3/uL (0.90-5.00); Lymphocytes % (A) 19.6 %; MCH 28.1 pg (27.0-32.0); MCHC 30.7 g/dL (32.0-37.0); MCV 91.4 FL (80.0-97.0); Mean Platelet Volume 12.1 FL (9.5-12.2); Monocytes # (A) 1.08 X 10*3/uL (0.20-1.00); Monocytes % (A) 10.4 %; NRBC Per 100 WBC 0 X 10*3/uL (0.00-0.01); Neutrophils # (A) 6.68 X 10*3/uL (1.80-7.70); Neutrophils % (A) 64.5 %; Platelet Count 294 X 10*3/uL (140-440); RBC 3.49 X 10*6/uL (4.10-5.20); RDW 16.3 % (11.5-14.5); WBC 10.36 X 10*3/uL (4.50-10.00)
[2024-05-24 10:14] LABS: Appearance,Urine Turbid (Clear); Bacteria,Urine Occasional /hpf; Bilirubin,Urine Negative (Negative); Blood,Urine Moderate (Negative); Color,Urine Colorless; Glucose,Urine (UA) Trace (Negative); Ketones,Urine Negative (Negative); Leukocyte Esterase,Urine Large (Negative); Nitrite,Urine Negative (Negative); PH, Urine 6.5 (5.0-8.0); Protein,Urine 1+ (Negative); RBC,Urine 20 /hpf (0-5); Specific Gravity,Urine 1.013 (1.001-1.035); Urobilinogen,Urine <2.0 mg/dL (<2.0); WBC,Urine >182 /hpf (0-5)
[2024-05-24 10:26] LABS: ALT 34 U/L (8-44); AST 42 U/L (13-35); Albumin 3.6 g/dL (3.8-4.9); Albumin/Globulin Ratio 1.03 Ratio (1.60-3.17); Alkaline Phosphatase 252 U/L (41-126); BUN/Creat Ratio 9.45 Ratio (12.00-20.00); Blood Urea Nitrogen 29.3 mg/dL (9.0-27.0); Calcium 9.5 mg/dL (8.7-10.3); Carbon Dioxide 21.9 mmol/L (21.6-31.8); Chloride 102 mmol/L (96-109); Globulin 3.5 g/dL (1.6-3.3); Glucose 114 mg/dL (70-110); Potassium 5.1 mmol/L (3.5-5.5); Sodium 137 mmol/L (135-145); Total Bilirubin 0.6 mg/dL (0.3-1.2); Total Protein 7.1 g/dL (6.2-8.2)
[2024-05-24 11:45] LABS: Glucose,Whole Blood 84 mg/dL (70-110)
--- NOTE | 2024-05-24 12:46 | P.PN ---
Subjective Patient is seen for follow-up for acute kidney injury. Status post cystoscopy and bilateral ureteral stent placement for bilateral hydronephrosis and kidney stones on 05/11/2024. Renal function has been stable with serum creatinine at about 2.9 mg/dL. no significant complaints today. Labs are pending from today. Objective - Vital Signs Vital signs: Vital Signs Temp 97.6 F 05/24/24 06:52 Pulse 62 05/24/24 06:52 Resp 16 05/24/24 06:52 BP 104/71 05/24/24 06:52 Pulse Ox 93 L 05/24/24 06:52 FiO2 Intake & Output 05/23/24 05/24/24 05/24/24 18:59 06:59 18:59 Other: Voiding Method Bedside Commode Bedside Commode Bedside Commode # Voids 8 2 # Bowel Movements 1 1 - Exam patient is awake, comfortable Alert oriented 3 No acute distress Examination of the heart S1 and S2 Examination of the lungs bilateral breath sounds are heard Abdomen is soft nontender Examination of lower extremities shows trace edema DOOR CORE ASSEMBLER exam grossly intact - Labs CBC & Chem 7: 05/24/24 04:01 05/24/24 04:01 Labs: Abnormal Lab Results - Last 24 Hours (Table) 05/23/24 05/24/24 05/24/24 Range/Units 16:53 04:01 04:01 WBC 10.36 H (4.50-10.00) X 10*3/uL RBC 3.49 L (4.10-5.20) X 10*6/uL Hgb 9.8 L (12.0-15.0) g/dL Hct 31.9 L (37.2-46.3) % MCHC 30.7 L (32.0-37.0) g/dL RDW 16.3 H (11.5-14.5) % Immature Gran # 0.05 H (0.00-0.04) X 10*3/uL Monocytes # 1.08 H (0.20-1.00) X 10*3/uL Eosinophils # 0.45 H (0.04-0.35) X 10*3/uL Anion Gap 13.10 H (4.00-12.00) mmol/L BUN 29.3 H (9.0-27.0) mg/dL Creatinine 3.1 H (0.6-1.5) mg/dL Est GFR (CKD-EPI) 16 L (>=60) BUN/Creatinine Ratio 9.45 L (12.00-20.00) Ratio Glucose 114 H (70-110) mg/dL POC Glucose (mg/dL) 115 H (70-110) mg/dL AST 42 H (13-35) U/L Alkaline Phosphatase 252 H (41-126) U/L Albumin 3.6 L (3.8-4.9) g/dL Globulin 3.5 H (1.6-3.3) g/dL Albumin/Globulin Ratio 1.03 L (1.60-3.17) Ratio Urine Appearance (Clear) Urine Protein (Negative) Urine Glucose (UA) (Negative) Urine Blood (Negative) Ur Leukocyte Esterase (Negative) Urine RBC (0-5) /hpf Urine WBC (0-5) /hpf Urine Bacteria (None) /hpf 05/24/24 Range/Units 09:31 WBC (4.50-10.00) X 10*3/uL RBC (4.10-5.20) X 10*6/uL Hgb (12.0-15.0) g/dL Hct (37.2-46.3) % MCHC (32.0-37.0) g/dL RDW (11.5-14.5) % Immature Gran # (0.00-0.04) X 10*3/uL Monocytes # (0.20-1.00) X 10*3/uL Eosinophils # (0.04-0.35) X 10*3/uL Anion Gap (4.00-12.00) mmol/L BUN (9.0-27.0) mg/dL Creatinine (0.6-1.5) mg/dL Est GFR (CKD-EPI) (>=60) BUN/Creatinine Ratio (12.00-20.00) Ratio Glucose (70-110) mg/dL POC Glucose (mg/dL) (70-110) mg/dL AST (13-35) U/L Alkaline Phosphatase (41-126) U/L Albumin (3.8-4.9) g/dL Globulin (1.6-3.3) g/dL Albumin/Globulin Ratio (1.60-3.17) Ratio Urine Appearance Turbid H (Clear) Urine Protein 1+ H (Negative) Urine Glucose (UA) Trace H (Negative) Urine Blood Moderate H (Negative) Ur Leukocyte Esterase Large H (Negative) Urine RBC 20 H (0-5) /hpf Urine WBC >182 H (0-5) /hpf Urine Bacteria Occasional H (None) /hpf Assessment and Plan Assessment: 1. Acute kidney injury, ATN secondary to sepsis and hypotension. Currently nonoliguric and improving. Patient is status post IV fluids.. No nephrotoxic agents identified. Previous creatinine 1.1 in 2018 2. Sepsis with UTI, urine culture growing group D enterococcus and blood cultures growing Vangei. Maintained on antifungal and antibiotics and being followed by ID. 3. Bilateral hydronephrosis with bilateral nephrolithiasis, status post cystoscopy and bilateral ureteral stent placement 4. History of nephrolithiasis 5. Anion gap metabolic acidosis associated with acute kidney injury Plan: Continue midodrine Continue with antibiotics as per ID follow-up as outpatient for acute kidney injury and CK D
--- NOTE | 2024-05-24 13:10 | P.PN ---
Subjective Progress Note Date: 05/24/24 This is a 68-year-old female who was recently admitted with acute UTI with group D Enterococcus and also candidemia with infectious disease, nephrology, urology following. Patient is maintained on IV antibiotics and will receive a midline and continue on antibiotics in the outpatient setting. Patient with generalized weakness and need for antibiotics will be going to ECF and currently awaiting PT/OT therapy evaluation. Most recent blood cultures have been negative. Patient is afebrile with no reports of chest pain or shortness of breath. Patient has been tolerating diet with no reported nausea or vomiting. 05/19/2024 Patient is seen in follow-up today maintained on IV antibiotics and has received a midline. Plan is for patient to go on IV daptomycin along with oral antifungals. Patient is afebrile with no reported chest pain or shortness of breath. Patient reports to feeling improved and would like to go home with nephrology and urology following. Patient will need outpatient follow-up with urology. Patient does have significant history of anxiety with depression and bipolar disorder with borderline personality disorder and follows with [facility] outpatient. Patient will not be able to self administer antibiotics via IV safely even with the help of home care in the outpatient setting and will need to go to ECF for continued IV antibiotic therapy to complete the course. Plan is for daptomycin every 48 hours for 5 doses to complete the course for Enterococcus UTI. Case management/social work is following as patient will require insurance authorization and has been accepted at [facility] pending authorization. 05/20/2024 Patient is seen in follow-up today continuing to await for insurance authorization for ECF. Insurance has denied and recommending peer to peer. Social work is following working on discharge planning including possible home with home care although there is currently no home care available that could accommodate every other day antibiotics and working on looking into other options regarding possible ECF. Patient is maintained on antibiotics and has received a midline with infectious disease following and will be continued on daptomycin on discharge. Patient is extremely nervous and anxious about going home and having home care with IV antibiotics in the outpatient setting. Will discuss further with social work regarding discharge planning. Patient is afebrile denies chest pain or shortness of breath. Patient has been tolerating diet with no reported nausea or vomiting. 05/21/2024 Patient is seen in follow-up this morning with no acute overnight issues noted. Given the holiday there is no available case management staff or insurance working today to verify if patient will be going to ECF or arranging for home with home care. Social work following and will follow-up with on Saturday regarding discharge planning. Patient is afebrile with no reports of chest pain or shortness of breath. Patient continues to report she wants to be discharged. Patient has been tolerating diet with no reported nausea or pain noted. Encouraged to increase activity as tolerated. 05/22. Patient seen and examined. No acute overnight. Vital signs stable 05/23. Patient seen and examined. Currently sitting upright in the bed, no acute issues overnight. 05/24. Patient seen and examined. No acute overnight. Results of repeat UA noted REVIEW OF SYSTEMS: CONSTITUTIONAL: No fever, no malaise,. CARDIOVASCULAR: No chest pain, no palpitations, no syncope. PULMONARY: No shortness of breath, no cough, GASTROINTESTINAL: No diarrhea, no nausea, no vomiting, no abdominal pain. NEUROLOGICAL: No headaches, no weakness, PHYSICAL EXAMINATION: GENERAL: The patient is alert and oriented x3, not in any acute distress. Well developed, well nourished. HEENT: Pupils are round and equally reacting to light. EOMI. No scleral icterus. No conjunctival pallor. Normocephalic, atraumatic. No pharyngeal erythema. No thyromegaly. CARDIOVASCULAR: S1 and S2 present. No murmurs, rubs, or gallops. PULMONARY: Chest is clear to auscultation, no wheezing or crackles. ABDOMEN: Soft, nontender, nondistended, normoactive bowel sounds. No palpable organomegaly. MUSCULOSKELETAL: No joint swelling or deformity. EXTREMITIES: No cyanosis, clubbing, or pedal edema. NEUROLOGICAL: Gross neurological examination did not reveal any focal deficits. SKIN: No rashes. Assessment and plan Acute urinary tract infection with group D Enterococcus, present on admission Candidemia, improved, repeat blood cultures negative Hydronephrosis with bilateral ureteral stent placement Elevated creatinine likely secondary to obstructive uropathy, improving Diabetes mellitus, type II History of anxiety, bipolar depression with borderline personality disorder Morbid obesity with a BMI of 49.9 Monitor vital signs monitor CBC monitor CMP Continue daptomycin continue Synthroid Continue Diflucan continue cholestyramine ID following Labs and medication were reviewed.. Continue same treatment. Continue with symptomatic treatment. Resume home medication. Monitor labs and vitals. DVT and GI prophylaxis. Further recommendations as per clinical course of the patie nt Dictation was produced using [employer] dictation software. please excuse any grammatical, word or spelling errors. Objective - Vital Signs Vital signs: Vital Signs Temp 97.6 F 05/24/24 06:52 Pulse 62 05/24/24 06:52 Resp 16 05/24/24 06:52 BP 104/71 05/24/24 06:52 Pulse Ox 93 L 05/24/24 06:52 FiO2 Intake & Output 05/23/24 05/24/24 05/24/24 18:59 06:59 18:59 Other: Voiding Method Bedside Commode Bedside Commode Bedside Commode # Voids 8 2 # Bowel Movements 1 1 - Labs CBC & Chem 7: 05/24/24 04:01 05/21/24 06:44 Labs: Abnormal Lab Results - Last 24 Hours (Table) 05/23/24 05/24/24 05/24/24 Range/Units 16:53 04:01 09:31 WBC 10.36 H (4.50-10.00) X 10*3/uL RBC 3.49 L (4.10-5.20) X 10*6/uL Hgb 9.8 L (12.0-15.0) g/dL Hct 31.9 L (37.2-46.3) % MCHC 30.7 L (32.0-37.0) g/dL RDW 16.3 H (11.5-14.5) % Immature Gran # 0.05 H (0.00-0.04) X 10*3/uL Monocytes # 1.08 H (0.20-1.00) X 10*3/uL Eosinophils # 0.45 H (0.04-0.35) X 10*3/uL POC Glucose (mg/dL) 115 H (70-110) mg/dL Urine Appearance Turbid H (Clear) Urine Protein 1+ H (Negative) Urine Glucose (UA) Trace H (Negative) Urine Blood Moderate H (Negative) Ur Leukocyte Esterase Large H (Negative) Urine RBC 20 H (0-5) /hpf Urine WBC >182 H (0-5) /hpf Urine Bacteria Occasional H (None) /hpf
--- NOTE | 2024-05-24 15:18 | P.PN ---
Subjective Progress Note Date: 05/24/24 Principal diagnosis: Reason for follow-up is complicated UTI and candidemia sudheer is a 68-year-old female with a past medical history negative for diabetes mellitus reflux pneumonia thyroid disorder presenting to the hospital yesterday afternoon as a transfer from [facility] where the patient has been diagnosed with UTI and the patient was noticed to have worsening kidney function CT did shows evidence of kidney stone patient is status post bilateral ureteral stent placement. Blood cultures came back positive with Vangie. On today's evaluation that is 05/24/2024, patient has been afebrile, patient is breathing comfortably and is currently on room air, patient denies having any significant cough no chest pain shortness of breath, patient denies nausea vomiting or diarrhea and no abdominal pain, complaining of some urinary frequency with no other urinary symptoms. Patient white count is 10.36 creatinine 3.1 Objective - Vital Signs Vital signs: Vital Signs Temp 97.6 F 05/24/24 13:44 Pulse 80 05/24/24 13:44 Resp 16 05/24/24 13:44 BP 102/65 05/24/24 13:44 Pulse Ox 95 05/24/24 13:44 FiO2 Intake & Output 05/23/24 05/24/24 05/24/24 18:59 06:59 18:59 Other: Voiding Method Bedside Commode Bedside Commode Bedside Commode # Voids 8 2 # Bowel Movements 1 1 - Exam GENERAL DESCRIPTION: An elderly female up in the chair in no distress RESPIRATORY SYSTEM: Unlabored breathing , decreased breath sounds at bases HEART: S1 S2 regular rate and rhythm , ABDOMEN: Soft , no tenderness EXTREMITIES: No edema feet - Labs CBC & Chem 7: 05/24/24 04:01 05/24/24 04:01 Labs: Abnormal Lab Results - Last 24 Hours (Table) 05/23/24 05/24/24 05/24/24 Range/Units 16:53 04:01 04:01 WBC 10.36 H (4.50-10.00) X 10*3/uL RBC 3.49 L (4.10-5.20) X 10*6/uL Hgb 9.8 L (12.0-15.0) g/dL Hct 31.9 L (37.2-46.3) % MCHC 30.7 L (32.0-37.0) g/dL RDW 16.3 H (11.5-14.5) % Immature Gran # 0.05 H (0.00-0.04) X 10*3/uL Monocytes # 1.08 H (0.20-1.00) X 10*3/uL Eosinophils # 0.45 H (0.04-0.35) X 10*3/uL Anion Gap 13.10 H (4.00-12.00) mmol/L BUN 29.3 H (9.0-27.0) mg/dL Creatinine 3.1 H (0.6-1.5) mg/dL Est GFR (CKD-EPI) 16 L (>=60) BUN/Creatinine Ratio 9.45 L (12.00-20.00) Ratio Glucose 114 H (70-110) mg/dL POC Glucose (mg/dL) 115 H (70-110) mg/dL AST 42 H (13-35) U/L Alkaline Phosphatase 252 H (41-126) U/L Albumin 3.6 L (3.8-4.9) g/dL Globulin 3.5 H (1.6-3.3) g/dL Albumin/Globulin Ratio 1.03 L (1.60-3.17) Ratio Urine Appearance (Clear) Urine Protein (Negative) Urine Glucose (UA) (Negative) Urine Blood (Negative) Ur Leukocyte Esterase (Negative) Urine RBC (0-5) /hpf Urine WBC (0-5) /hpf Urine Bacteria (None) /hpf 05/24/24 Range/Units 09:31 WBC (4.50-10.00) X 10*3/uL RBC (4.10-5.20) X 10*6/uL Hgb (12.0-15.0) g/dL Hct (37.2-46.3) % MCHC (32.0-37.0) g/dL RDW (11.5-14.5) % Immature Gran # (0.00-0.04) X 10*3/uL Monocytes # (0.20-1.00) X 10*3/uL Eosinophils # (0.04-0.35) X 10*3/uL Anion Gap (4.00-12.00) mmol/L BUN (9.0-27.0) mg/dL Creatinine (0.6-1.5) mg/dL Est GFR (CKD-EPI) (>=60) BUN/Creatinine Ratio (12.00-20.00) Ratio Glucose (70-110) mg/dL POC Glucose (mg/dL) (70-110) mg/dL AST (13-35) U/L Alkaline Phosphatase (41-126) U/L Albumin (3.8-4.9) g/dL Globulin (1.6-3.3) g/dL Albumin/Globulin Ratio (1.60-3.17) Ratio Urine Appearance Turbid H (Clear) Urine Protein 1+ H (Negative) Urine Glucose (UA) Trace H (Negative) Urine Blood Moderate H (Negative) Ur Leukocyte Esterase Large H (Negative) Urine RBC 20 H (0-5) /hpf Urine WBC >182 H (0-5) /hpf Urine Bacteria Occasional H (None) /hpf Assessment and Plan (1) Complicated UTI (urinary tract infection) Current Visit: Yes Status: Acute Code(s): N39.0 - URINARY TRACT INFECTION, SITE NOT SPECIFIED SNOMED Code(s): 57332337 (2) Candidemia Current Visit: Yes Status: Acute Code(s): B37.7 - CANDIDAL SEPSIS SNOMED Code(s): 867686497 (3) Diarrhea Current Visit: Yes Status: Acute Code(s): R19.7 - DIARRHEA, UNSPECIFIED SNOMED Code(s): 33560173 Plan: 1patient with a complicated urinary tract infection with evidence of bilateral kidney stone requiring cystoscopy and bilateral ureteral stent placement will need to call for the enteric gram-negative to be the likely pathogen 2-urine culture currently growing Enterococcus faecium that is resistant to ampicillin, blood culture positive for Vangie, repeat blood culture has been negative 3-patient remains to be afebrile white count has been normal continue with the daptomycin unfortunately unable to use Zyvox because of SSRI the patient is on we will recommend continuation of oral Diflucan for about a week on discharge and close outpatient follow-up Dictation was produced using scanRation software. please excuse any grammatical, word or spelling errors. Time with Patient: Less than 30
[2024-05-24 16:56] LABS: Glucose,Whole Blood 104 mg/dL (70-110)
[2024-05-24 21:02] LABS: Glucose,Whole Blood 112 mg/dL (70-110)
[2024-05-25 06:18] LABS: Glucose,Whole Blood 108 mg/dL (70-110)
[2024-05-25 08:05] VITALS: PULSE 68; RESP 18; TEMP 97.8
[2024-05-25 09:33] LABS: ALT 63 U/L (4-34); AST 85 U/L (14-36); African American GFR (CKD) 17 (>60 ml/min/1.73 sqM); Albumin 3.9 g/dL (3.5-5.0); Albumin/Globulin Ratio 1.1; Alkaline Phosphatase 250 U/L (38-126); Anion Gap 8 mmol/L; Blood Urea Nitrogen 30 mg/dL (7-17); Calcium 10.1 mg/dL (8.4-10.2); Carbon Dioxide 25 mmol/L (22-30); Chloride 105 mmol/L (98-107); Globulin 3.6 g/dL; Glucose 127 mg/dL (74-99); Non-African American GFR(CKD) 15 (>60 ml/min/1.73 sqM); Potassium 4.9 mmol/L (3.5-5.1); Sodium 138 mmol/L (137-145); Total Bilirubin 1.1 mg/dL (0.2-1.3); Total Protein 7.5 g/dL (6.3-8.2)
[2024-05-25 10:21] LABS: Basophils # (A) 0.1 k/uL (0-0.2); Basophils % (A) 1 %; Eosinophils # (A) 0.4 k/uL (0-0.7); Eosinophils % (A) 4 %; HCT 34.2 % (34.0-46.0); HGB 10.4 gm/dL (11.4-16.0); Hypochromasia Moderate; Lymphocytes # (A) 1.7 k/uL (1.0-4.8); Lymphocytes % (A) 19 %; MCH 28.6 pg (25.0-35.0); MCHC 30.3 g/dL (31.0-37.0); MCV 94.2 fL (80.0-100.0); Mean Platelet Volume 9.5; Monocytes # (A) 0.6 k/uL (0-1.0); Monocytes % (A) 7 %; Neutrophils # (A) 5.8 k/uL (1.3-7.7); Neutrophils % (A) 66 %; Platelet Count 297 k/uL (150-450); RBC 3.62 m/uL (3.80-5.40); RDW 15.6 % (11.5-15.5); WBC 8.9 k/uL (3.8-10.6)
--- NOTE | 2024-05-25 11:52 | P.DS ---
Providers Date of admission: 05/11/24 14:47 Expected date of discharge: 05/25/24 Attending physician: Gordo Rose Consults: 05/11/24 14:46 Consult Physician Urgent Consulting Provider: Rell Briceño Consult Reason/Comments: Obstructive uropathy with NITO Do you want consulting provider notified?: Yes 05/12/24 11:11 Consult Physician Routine Consulting Provider: Laurel Villalpando Consult Reason/Comments: NITO - Creatinine 4.7,BUN 81.3 Do you want consulting provider notified?: Yes 05/12/24 11:48 Consult Physician Routine Consulting Provider: Stefan Alarcon Consult Reason/Comments: UTi, kidney stons Do you want consulting provider notified?: Yes Primary care physician: Gordo Rose [facility] Course: Discharge diagnosis Hospital course Leisa Celestin, is a 68-year-old female who presented to [facility] emergency room with a chief complaint ofNot feeling well. Patient was a transfer from [facility] with concerns of UTI and worsening renal function CTA was also concerning for kidney stones She was evaluated in the emergency room vital examination on presentation revealedTemp 96.3, heart rate 78, blood pressure 91/61 with pulse ox 95% on room air Patient was admitted to medical floor for further evaluation and treatment. Urology service is consulted Past medical history is significant for Diabetes mellitus, GERD, pneumonia, thyroid disorder, peptic ulcer disease, anxiety bipolar depression On 05/12/2024 Patient is alert and oriented times 3. Patient underwent bilateral ureteral stent insertionWith Dr. Jarvis yesterdayPatient remains on IV antibioticsPatient denies chest pain or shortness of breath. Patient denies nausea vomiting or diarrhea. Patient denies any urinary burning or frequency On 05/13/2024 patient is alert and oriented 3 Patient remains on IV antibiotics infectious disease, urology and nephrology services are following. Per urology patient will eventually need removal of renal calculi stents once her infection is cleared. Patient reporting difficulty with urination and burning. Patient denies chest pain or shortness breath. Patient denies nausea vomiting or diarrhea. Patient denies any urinary burning or frequency Dr. Morales's group will be covering until May 25 We are resuming care patient on 05/25/2024 On 05/25/2024 Patient has been cleared for discharge. Per ID recommendation patient will be discharged on Diflucan for 1 week.Patient denies chest pain or shortness of breath. Patient denies nausea vomiting or diarrhea. Patient denies any urinary burning or frequency. Patient to follow-up with urology and nephrology services outpatient for further management Patient Condition at Discharge: Stable Plan - Discharge Summary Discharge Rx Participant: Yes New Discharge Prescriptions: New Midodrine [ProAmatine] 10 mg PO TID tab Fluconazole [Diflucan] 200 mg PO DAILY 7 Days #14 tab Fluconazole [Diflucan] 200 mg PO DAILY #10 tablet Oxybutynin Xl [Ditropan XL] 10 mg PO DAILY tab Enoxaparin [Lovenox] 30 mg SQ DAILY each Magnesium Oxide [Mag-Ox] 400 mg PO BID tab Nystatin 100,000 Unit/gm Powd [Mycostatin Powder] 1 applic TOPICAL BID each Cholestyramine (with Sugar) [Questran Packet] 4 gm PO BID@1000,1800 packet Acetaminophen Tab [Tylenol] 650 mg PO Q6HR PRN tab PRN Reason: Fever And/ Or Pain Continue Ferrous Sulfate [Iron] 325 mg PO DAILY Cetirizine HCl 10 mg PO DAILY Aspirin EC [Ecotrin Low Dose] 81 mg PO DAILY ARIPiprazole [Abilify] 5 mg PO HS Venlafaxine HCl [Effexor XR] 150 mg PO DAILY Omeprazole 20 mg PO DAILY Tirzepatide [Mounjaro] 2.5 mg SQ TH Levothyroxine Sodium [Synthroid] 100 mcg PO DAILY Pioglitazone [Actos] 30 mg PO DAILY Discontinued lisinopriL [Zestril] 5 mg PO DAILY Discharge Medication List ARIPiprazole [Abilify] 5 mg PO HS 01/29/18 [History] Aspirin EC [Ecotrin Low Dose] 81 mg PO DAILY 01/29/18 [History] Cetirizine HCl 10 mg PO DAILY 01/29/18 [History] Ferrous Sulfate [Iron] 325 mg PO DAILY 01/29/18 [History] Levothyroxine Sodium [Synthroid] 100 mcg PO DAILY 05/11/24 [History] Omeprazole 20 mg PO DAILY 05/11/24 [History] Pioglitazone [Actos] 30 mg PO DAILY 05/11/24 [History] Tirzepatide [Mounjaro] 2.5 mg SQ TH 05/11/24 [History] Venlafaxine HCl [Effexor XR] 150 mg PO DAILY 05/11/24 [History] Acetaminophen Tab [Tylenol] 650 mg PO Q6HR PRN tab 05/19/24 [Rx] Cholestyramine (with Sugar) [Questran Packet] 4 gm PO BID@1000,1800 packet 05/19/24 [Rx] Enoxaparin [Lovenox] 30 mg SQ DAILY each 05/19/24 [Rx] Fluconazole [Diflucan] 200 mg PO DAILY #10 tablet 05/19/24 [Rx] Magnesium Oxide [Mag-Ox] 400 mg PO BID tab 05/19/24 [Rx] Midodrine [ProAmatine] 10 mg PO TID tab 05/19/24 [Rx] Nystatin 100,000 Unit/gm Powd [Mycostatin Powder] 1 applic TOPICAL BID each 05/19/24 [Rx] Oxybutynin Xl [Ditropan XL] 10 mg PO DAILY tab 05/19/24 [Rx] Fluconazole [Diflucan] 200 mg PO DAILY 7 Days #14 tab 05/25/24 [Rx] Follow up Appointment(s)/Referral(s): Rell Briceño MD [STAFF PHYSICIAN] - 05/25/24 9:40 am Gordo Rose MD [Primary Care Provider] - 06/02/24 10:45 am Bill Lynne DO [STAFF PHYSICIAN] - 1 Week (office not answering please call to schedule) Ambulatory/Diagnostic Orders: Complete Blood Count w/diff [LAB.AMB] Time Frame: 3 Days, Location: None Selected Discharge Disposition: HOME SELF-CARE
[2024-05-25 12:07] LABS: Glucose,Whole Blood 108 mg/dL (70-110)
--- NOTE | 2024-05-25 12:17 | P.PN ---
Subjective Progress Note Date: 05/25/24 Principal diagnosis: Reason for follow-up is complicated UTI and candidemia sudheer is a 68-year-old female with a past medical history significant for diabetes mellitus reflux pneumonia thyroid disorder presenting to the hospital yesterday afternoon as a transfer from [facility] where the patient has been diagnosed with UTI and the patient was noticed to have worsening kidney function CT did shows evidence of kidney stone patient is status post bilateral ureteral stent placement. Blood cultures came back positive with Vangie. On today's evaluation that is 05/25/2024, Patient is afebrile this morning and denies any chills, patient mention breathing comfortably and is currently on room air, patient denies any chest pain occasional cough patient denies any abdominal pain no diarrhea no nausea no vomiting, patient feeling better wants to go home. Patient white count is 8.9, creatinine is 3.15 repeated and so far negative Objective - Vital Signs Vital signs: Vital Signs Temp 97.8 F 05/25/24 07:02 Pulse 68 05/25/24 07:02 Resp 18 05/25/24 07:02 BP 106/68 05/25/24 11:08 Pulse Ox 95 05/25/24 07:02 FiO2 Intake & Output 05/24/24 05/25/24 05/25/24 18:59 06:59 18:59 Other: Voiding Method Bedside Commode Bedside Commode # Voids 4 1 # Bowel Movements 1 - Exam GENERAL DESCRIPTION: An elderly female up in the chair in no distress RESPIRATORY SYSTEM: Unlabored breathing , decreased breath sounds at bases HEART: S1 S2 regular rate and rhythm , ABDOMEN: Soft , no tenderness EXTREMITIES: No edema feet - Labs CBC & Chem 7: 05/25/24 08:48 05/25/24 08:48 Labs: Abnormal Lab Results - Last 24 Hours (Table) 05/24/24 05/25/24 05/25/24 Range/Units 21:01 08:48 08:48 RBC 3.62 L (3.80-5.40) m/uL Hgb 10.4 L (11.4-16.0) gm/dL MCHC 30.3 L (31.0-37.0) g/dL RDW 15.6 H (11.5-15.5) % BUN 30 H (7-17) mg/dL Creatinine 3.15 H (0.52-1.04) mg/dL Glucose 127 H (74-99) mg/dL POC Glucose (mg/dL) 112 H (70-110) mg/dL AST 85 H (14-36) U/L ALT 63 H (4-34) U/L Alkaline Phosphatase 250 H (38-126) U/L Microbiology - Last 24 Hours (Table) 05/24/24 09:31 Urine Culture - Final Urine,Voided Assessment and Plan (1) Complicated UTI (urinary tract infection) Current Visit: Yes Status: Acute Code(s): N39.0 - URINARY TRACT INFECTION, SITE NOT SPECIFIED SNOMED Code(s): 14445155 (2) Candidemia Current Visit: Yes Status: Acute Code(s): B37.7 - CANDIDAL SEPSIS SNOMED Code(s): 808348285 (3) Diarrhea Current Visit: Yes Status: Acute Code(s): R19.7 - DIARRHEA, UNSPECIFIED SNOMED Code(s): 97275183 Plan: 1patient with a complicated urinary tract infection with evidence of bilateral kidney stone requiring cystoscopy and bilateral ureteral stent placement will need to call for the enteric gram-negative to be the likely pathogen 2-urine culture currently growing Enterococcus faecium that is resistant to ampicillin, blood culture positive for Vangie, repeat blood culture has been negative 3-patient remains to be afebrile white count has been normal repeated culture has been negative she will consider 7-day course of oral Diflucan on discharge this was discussed with admitting team Dictation was produced using [employer] dictation software. please excuse any grammatical, word or spelling errors. Time with Patient: Less than 30
--- NOTE | 2024-05-25 12:34 | P.PN ---
Subjective Patient is seen for follow-up for acute kidney injury. Status post cystoscopy and bilateral ureteral stent placement for bilateral hydronephrosis and kidney stones on 05/11/2024. Renal function has been stable with serum creatinine at about 2.9 - 3.1 mg/dL. no significant complaints today. Objective - Vital Signs Vital signs: Vital Signs Temp 97.8 F 05/25/24 07:02 Pulse 68 05/25/24 07:02 Resp 18 05/25/24 07:02 BP 106/68 05/25/24 11:08 Pulse Ox 95 05/25/24 07:02 FiO2 Intake & Output 05/24/24 05/25/24 05/25/24 18:59 06:59 18:59 Other: Voiding Method Bedside Commode Bedside Commode # Voids 4 1 # Bowel Movements 1 - Exam patient is awake, comfortable Alert oriented 3 No acute distress Examination of the heart S1 and S2 Examination of the lungs bilateral breath sounds are heard Abdomen is soft nontender Examination of lower extremities shows trace edema [employer] exam grossly intact - Labs CBC & Chem 7: 05/25/24 08:48 05/25/24 08:48 Labs: Abnormal Lab Results - Last 24 Hours (Table) 05/24/24 05/25/24 05/25/24 Range/Units 21:01 08:48 08:48 RBC 3.62 L (3.80-5.40) m/uL Hgb 10.4 L (11.4-16.0) gm/dL MCHC 30.3 L (31.0-37.0) g/dL RDW 15.6 H (11.5-15.5) % BUN 30 H (7-17) mg/dL Creatinine 3.15 H (0.52-1.04) mg/dL Glucose 127 H (74-99) mg/dL POC Glucose (mg/dL) 112 H (70-110) mg/dL AST 85 H (14-36) U/L ALT 63 H (4-34) U/L Alkaline Phosphatase 250 H (38-126) U/L Microbiology - Last 24 Hours (Table) 05/24/24 09:31 Urine Culture - Final Urine,Voided Assessment and Plan Assessment: 1. Acute kidney injury, ATN secondary to sepsis and hypotension. Currently nonoliguric and serum creatinine stable at 2.9-3.1.. Patient is status post IV fluids.. No nephrotoxic agents identified. Previous creatinine 1.1 in 2018 2. Sepsis with UTI, urine culture growing group D enterococcus and blood cultures growing Vangie. Maintained on antifungal and antibiotics and being followed by ID. 3. Bilateral hydronephrosis with bilateral nephrolithiasis, status post cystoscopy and bilateral ureteral stent placement 4. History of nephrolithiasis 5. Anion gap metabolic acidosis associated with acute kidney injury Plan: check post void bladder scan as patient is maintained on Ditropan, rule out urine retention Continue midodrine Continue with antibiotics as per ID follow-up as outpatient for acute kidney injury and CK D
[2024-05-25 14:09] VITALS: BP 102/64
== END 2024-05-25 14:55 | disposition home or self-care (01) | DRG 853 ==
LOC: EC 14:08 → 4SSUR 14:47
PROVIDERS: ADMIT Internal Medicine; ATTEND Internal Medicine
PROC: 0T788DZ Dilation of Bilateral Ureters with Intraluminal Device, Via Natural or Artificial Opening Endoscopic (ICD-10-PCS; principal; 2024-05-11 16:55)
DX: B37.7 Candidal sepsis (principal); N17.0 Acute kidney failure with tubular necrosis; E87.20 Acidosis, unspecified; Z16.11 Resistance to penicillins; N13.6 Pyonephrosis; B95.2 Enterococcus as the cause of diseases classified elsewhere; E03.9 Hypothyroidism, unspecified; F31.9 Bipolar disorder, unspecified; E11.22 Type 2 diabetes mellitus with diabetic chronic kidney disease; N18.31 Chronic kidney disease, stage 3a; R65.20 Severe sepsis without septic shock; E83.42 Hypomagnesemia; F41.9 Anxiety disorder, unspecified; F60.3 Borderline personality disorder; N94.89 Other specified conditions associated with female genital organs and menstrual cycle; I12.9 Hypertensive chronic kidney disease with stage 1 through stage 4 chronic kidney disease, or unspecified chronic kidney disease; K21.9 Gastro-esophageal reflux disease without esophagitis; Z79.82 Long term (current) use of aspirin; Z79.84 Long term (current) use of oral hypoglycemic drugs; Z79.890 Hormone replacement therapy; Z79.899 Other long term (current) drug therapy; Z87.440 Personal history of urinary (tract) infections; Z88.1 Allergy status to other antibiotic agents
CPT/HCPCS: 36410; 70450; 74176; 74420; 76705; 76937; 80048; 80053; 81001; 83735; 84100; 85025; 85610; 87040; 87077; 87086; 87186; 93306; 96360; 99285

== ENCOUNTER → 2024-06-04 | Day surgery (SDC) | payer MEDICARE, OTHER ==
[2024-06-02 11:54] VITALS: BMI 43.2
[~2024-06-04] MED LIST: HYDROmorphone (PF) 1 MG/ML ONE; HYDROmorphone 0.5 MG/0.5 ML SYRINGE IVP PRN; LIDOCAINE 1% (10MG/ML) FOR IV START INTRADERMA PRN; MIDAZOLAM 2 MG/2 ML VIAL ONE; PROPOFOL 10 MG/ML 20 ML VIAL IV ONE; ROCURONIUM 10 MG/ML (5 ML VIAL) IV ONE; SUCCINYLCHOLINE CHLORIDE 200 MG/10 ML VIAL IV ONE; droPERidol 5 MG/2 ML VIAL IVP PRN; fentaNYL (PF) 50 MCG/ML 2 ML AMP ONE
[2024-06-04 11:04] VITALS: TEMP 97.2
[2024-06-04] MEDS: IV FLUID CONTINUATION 1,000 ML IV ONE (11:04)
[2024-06-04] MEDS: DEXAMETHASONE SOD PHOSPHATE 4 MG/ML 1 ML VIAL IV ONE (11:10)
[2024-06-04] MEDS: ONDANSETRON 4 MG/2 ML VIAL IVP ONE (11:10)
[2024-06-04] MEDS: LACTATED RINGERS 1,000 ML IV SCH (11:10)
[2024-06-04 11:12] LABS: Glucose,Whole Blood 114 mg/dL (70-110)
--- NOTE | 2024-06-04 14:52 | P.GSHP ---
History of Present Illness H&P Date: 06/03/24 Chief Complaint: Renal calculi The patient is a 68-year-old white female who has been treated for recurrent UTIs. She states that she has had multiple, persistent infections. The only culture performed at [facility] was in December 2023, showing an E. coli UTI. She denies any prior history of urolithiasis. She is a vague historian. She was seen at [facility] several weeks ago. CT scan showed bilateral renal pelvic/UPJ calculi measuring approximately 7 mm each, with associated bilateral mild hydronephrosis. She was transferred to [facility] for further management. She was found to have Vangie sepsis. She was treated for this and underwent bilateral ureteral stent insertion. She now comes for removal of her calculi. Subsequent CT scan suggest that there are 2 right renal pelvic calculi, and 1 calculus within the left renal pelvis. - Genitourinary (Female) Genitourinary: Reports hematuria, Reports kidney stones Past Medical History Past Medical History: Diabetes Mellitus, GERD/Reflux, Pneumonia, Thyroid Disorder Additional Past Medical History / Comment(s): Recent UTI and kidney stones. Borderline diabetic takes Metformin but no bs checks, arthritis, chronic lower back pain, murmur, varicose veins, diverticulosis, constipation, yeast infection under breasts and abd fold also wound right breast and scabbed areas left breast, sinus/seasonal allergies, hepatitis B,umb hernia, petic ulcer disease, leakage of urine. 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 Past Anesthesia/Blood Transfusion Reactions: Previous Problems w/ Anesthesia, Motion Sickness Additional Past Anesthesia/Blood Transfusion Reaction / Comment(s): Diffiuculty waking up. Clausterphobia. Past Psychological History: Anxiety, Bipolar, Depression Additional Psychological History / Comment(s): Borderline personality disorder, goes to [employer] [facility] [address]. Pt stated she took special education classes when in school able to read and write but has mild comprehension problems. Smoking Status: Never smoker Past Alcohol Use History: None Reported Past Drug Use History: None Reported - Past Family History Father Family Medical History: Cancer Additional Family Medical History / Comment(s): Colon cancer. Mother Family Medical History: Cancer, Myocardial Infarction (DC) Additional Family Medical History / Comment(s): Lung cancer. Medications and Allergies Home Medications Medication Instructions Recorded Confirmed Type ARIPiprazole [Abilify] 5 mg PO HS 01/29/18 06/02/24 History Aspirin EC [Ecotrin Low Dose] 81 mg PO DAILY 01/29/18 06/02/24 History Cetirizine HCl 10 mg PO DAILY 01/29/18 06/02/24 History Ferrous Sulfate [Iron] 325 mg PO DAILY 01/29/18 06/02/24 History Levothyroxine Sodium [Synthroid] 100 mcg PO DAILY 05/11/24 06/02/24 History Omeprazole 20 mg PO DAILY 05/11/24 06/02/24 History Pioglitazone [Actos] 30 mg PO DAILY 05/11/24 06/02/24 History Tirzepatide [Mounjaro] 2.5 mg SQ TH 05/11/24 06/02/24 History Venlafaxine HCl [Effexor XR] 150 mg PO QAM 05/11/24 06/02/24 History Cholestyramine (with Sugar) 4 gm PO BID@1000,1800 30 Days #60 05/25/24 06/02/24 Rx [Questran Packet] packet Magnesium Oxide [Mag-Ox] 400 mg PO BID 30 Days #60 tab 05/25/24 06/02/24 Rx Midodrine [ProAmatine] 10 mg PO TID 30 Days #60 tab 05/25/24 06/02/24 Rx Oxybutynin Xl [Ditropan XL] 10 mg PO DAILY 30 Days #60 tab 05/25/24 06/02/24 Rx Allergies Allergy/AdvReac Type Severity Reaction Status Date / Time clindamycin Allergy Rash/Hives Verified 06/02/24 11:29 nickel AdvReac Rash/Hives Verified 06/02/24 11:29 propoxyphene [From Darvon] AdvReac Unknown Verified 06/02/24 11:29 amprin AdvReac Unknown Uncoded 06/02/24 11:29 Surgical - Exam - General well developed, well nourished, no distress - Respiratory normal respiratory effort - Abdomen Abdomen: soft, non tender, no guarding, no rigid, no rebound Results - Imaging CT scan - abdomen: report reviewed, image reviewed Assessment and Plan (1) Calculus of kidney Current Visit: Yes Status: Acute Code(s): N20.0 - CALCULUS OF KIDNEY SNOMED Code(s): 40550115 Plan: Cystoscopy, bilateral ureteral stent removal, bilateral ureteroscopy with Holmium laser lithotripsy and stone basketing. The procedure has been reviewed in detail with the patient. She has been made aware of potential risks, which include anesthesia, bleeding, infection, ureteral injury, and inability to remove all calculi.
--- NOTE | 2024-06-04 15:00 | P.OP ---
Date of Procedure: 06/04/24 Preoperative Diagnosis: Bilateral renal calculi Postoperative Diagnosis: Same Procedure(s) Performed: Cystoscopy, bilateral ureteral stent removal, bilateral ureteroscopy with Holmium laser lithotripsy and stone basketing (on the left). Anesthesia: SANTOA Surgeon: Rell Briceño Estimated Blood Loss (ml): 20 IV fluids (ml): 700 Pathology: other (Calculus fragments, sent for chemical analysis) Condition: stable Disposition: PACU Indications for Procedure: The patient is a 68-year-old white female who has been treated for recurrent UTIs. She states that she has had multiple, persistent infections. The only culture performed at [facility] was in December 2023, showing an E. coli UTI. She denies any prior history of urolithiasis. She is a vague historian. She was seen at [facility] several weeks ago. CT scan showed bilateral renal pelvic/UPJ calculi measuring approximately 7 mm each, with associated bilateral mild hydronephrosis. She was transferred to [facility] for further management. She was found to have Vangie sepsis. She was treated for this and underwent bilateral ureteral stent insertion. Subsequent CT scan suggest that there are 2 right renal pelvic calculi, and 1 calculus within the left renal pelvis. She now comes for removal of her calculi. Operative Findings: 2 right renal pelvic calculi, 1 left renal pelvic calculus. All calculi fragmented completely. Description of Procedure: The patient was taken to the operating room and placed in the dorsolithotomy position, with legs supported in Zachary stirrups. The external genitalia was prepped and draped sterilely. The 30 lens was used to introduce the 21-Ivorian Berger cystoscopic sheath through the urethra and into the bladder under direct vision. The bladder was noted to be quite inflamed. Grasping forceps were used to grasp the distal end of the left ureteral stent, which was removed along with the cystoscope. A 0.038 inch Glidewire was passed through the stent and advanced up to the left renal pelvis. The stent was removed, and an 11/13-Ivorian ureteral access catheter was passed over the wire, up to the proximal ureter. The flexible ureteroscope was then passed through the ureteral access catheter sheath and advanced under direct vision up to the left renal pelvis. The calculus was seen within the renal pelvis. No other calculi were seen. The 272 micron Holmium laser probe was passed through the ureteroscope, and lithotripsy was performed utilizing a dusting mode. Ultimately, the calculus did fragment, and several larger fragments were removed using a 0 tip 1.9 Ivorian nitinol basket. The remaining fragments were treated in a popcorning fashion, leaving no residual calculus fragments exceeding 1 mm in size. Pullout ureteroscopy showed no evidence of ureteral trauma. Access to the right renal pelvis was obtained in an identical fashion to the left. 2 left renal pelvic calculi were seen measuring up to 1 cm in size. These were treated utilizing a combination of dusting/popcorning, leaving no residual calculus fragments exceeding 1 mm in size. Pullout ureteroscopy showed no evidence of ureteral trauma. The patient tolerated the procedure well and was taken to the recovery room in stable condition. [facility] Report: Procedure Acuity: Elective Stone Size and Location: Bilateral renal pelvis up to 1 cm Ureteral Dilation: No Ureteral Access Sheath Used: Yes Stone Sent for Analysis: Yes All Stones/Fragments Were Removed with a Basket: No Complications: No Preoperative Antibiotics Given: Yes Stent Placed: No Discharge Medications: None
--- NOTE | 2024-06-04 15:36 | FL ---
EXAMINATION TYPE: FL guidance operating room DATE OF EXAM: 06/04/2024 Comparison: None Clinical History: 68-year-old female CYSTOSCOPY LITHO BILATERAL RENAL CALCULI Findings: 45 SEC FLUORO, DAP 10.337 Gycm2, 4 images submitted. Impression: Intraoperative fluoroscopy as above.
[2024-06-04 16:37] VITALS: RESP 20
[2024-06-04 16:38] VITALS: BP 137/84; PULSE 99
== END | disposition home or self-care (01) ==
LOC: OR 10:39
PROVIDERS: ATTEND Urology
DX: N13.2 Hydronephrosis with renal and ureteral calculous obstruction (principal); E11.9 Type 2 diabetes mellitus without complications; F31.9 Bipolar disorder, unspecified; E07.9 Disorder of thyroid, unspecified; F41.9 Anxiety disorder, unspecified; F60.3 Borderline personality disorder; K21.9 Gastro-esophageal reflux disease without esophagitis; Z79.84 Long term (current) use of oral hypoglycemic drugs; Z79.890 Hormone replacement therapy; Z80.0 Family history of malignant neoplasm of digestive organs; Z90.49 Acquired absence of other specified parts of digestive tract; Z90.89 Acquired absence of other organs; Z86.14 Personal history of Methicillin resistant Staphylococcus aureus infection
CPT/HCPCS: 52353; 82365; C1769; J2250; J0330; J1100; J0690; J2405; J3010; J1170; J2704

== ENCOUNTER → 2024-08-13 | Outpatient (CLI) | payer MEDICARE, OTHER ==
--- NOTE | 2024-08-13 09:34 | XR ---
EXAMINATION TYPE: XR KUB DATE OF EXAM: 08/13/2024 COMPARISON: 05/14/2024 HISTORY: Pain TECHNIQUE: One view abdominal series FINDINGS: Arthropathy of the hips. Soft tissue ossification along the inferior pubic rami. Degenerative changes lower lumbar spine. Enthesophytes iliac crest. SI joints patent. Bowel gas pattern nonspecific with a large retained stool burden. Surgical clips gallbladder fossa. IMPRESSION: 1. Nonspecific abdomen. Correlate for constipation. [facility], , 08/13/2024 9:32 AM
--- NOTE | 2024-08-13 09:36 | XR ---
EXAM TYPE: LUMBAR SPINE X RAY SERIES COMPARISON: NONE HISTORY: Pain TECHNIQUE: 3 views are submitted. FINDINGS: Alignment is anatomic. The pedicles are intact. The transverse processes are intact. Multilevel mil d to moderate degenerative disc disease with grade 1 anterolisthesis L4-L5. Multilevel facet arthropa thy and foraminal encroachment. Vascular calcifications are seen are surgical clips in the gallbladde r fossa. IMPRESSION: 1. Multilevel lygh-mo-fxcqoair degenerative disc disease most marked at levels L2-S1. 2. Grade 1 anterolisthesis L4-L5. 3. Multilevel facet arthropathy with foraminal encroachment suspected at multiple levels. [facility], , 08/13/2024 9:33 AM
== END | disposition home or self-care (01) ==
LOC: RADXRMAIN 08:51
PROVIDERS: ATTEND Urology
DX: M48.062 Spinal stenosis, lumbar region with neurogenic claudication (principal); M43.16 Spondylolisthesis, lumbar region; M47.816 Spondylosis without myelopathy or radiculopathy, lumbar region; M51.36 Other intervertebral disc degeneration, lumbar region; N20.0 Calculus of kidney
CPT/HCPCS: 72100; 74018

== ENCOUNTER → 2025-01-27 | Outpatient (CLI) | payer MEDICARE, OTHER ==
--- NOTE | 2025-01-27 07:56 | XR ---
EXAMINATION TYPE: XR wrist complete LT DATE OF EXAM: 01/27/2025 CLINICAL INDICATION: Female, 69 years old with history of M25.512 PAIN IN BILAT SHOULDERS M25.532 LEF T WRIST, TECHNIQUE: 3 Views of the wrist. 4 view scaphoid view is performed. COMPARISON: None FINDINGS: Osseous structures are demineralized. There is no acute fracture/dislocation evident in the left wrist. Mild to moderate narrowing and spurring at base of first metacarpal. Mild triscaphe join t degenerative change. There is calcification of the triangular fibrocartilage complex thought presen t. The overlying soft tissue appears unremarkable. IMPRESSION: As above. [facility], , 01/27/2025 7:54 AM
--- NOTE | 2025-01-27 07:57 | XR ---
EXAMINATION TYPE: XR humerus RT DATE OF EXAM: 01/27/2025 CLINICAL INDICATION: Female, 69 years old with history of M25.512 PAIN IN BILAT SHOULDERS M25.532 LEF T WRIST, pain TECHNIQUE: Two views of the right humerus are obtained. COMPARISON: None. FINDINGS: There is no acute fracture or dislocation seen in the right humerus. Degenerative change a t the right glenohumeral joint is seen. Overlying soft tissue is unremarkable. Visualized right lung is clear. IMPRESSION: As above. [facility], , 01/27/2025 7:55 AM
--- NOTE | 2025-01-27 07:59 | XR ---
EXAMINATION TYPE: XR shoulder complete BILAT DATE OF EXAM: 01/27/2025 CLINICAL INDICATION: Female, 69 years old with history of M25.512 PAIN IN BILAT SHOULDERS M25.532 LEF T WRIST, pain TECHNIQUE: Three views of the bilateral shoulders are obtained. COMPARISON: None. FINDINGS: There is no acute fracture/dislocation evident in either shoulder. Osseous structures are demineralized. There is moderate to severe narrowing at the bilateral glenohumeral joints with small bony projections from the inferior medial aspect of the humeral heads bilaterally. There is mild to m oderate narrowing and spurring at the right acromioclavicular joint. There is more moderate to severe narrowing at the left acromioclavicular joint. Visualized ribs are intact bilaterally. IMPRESSION: As above. [facility], , 01/27/2025 7:56 AM
== END | disposition home or self-care (01) ==
LOC: RADXRMAIN 07:03
PROVIDERS: ATTEND Family Medicine
DX: M19.011 Primary osteoarthritis, right shoulder (principal); M25.512 Pain in left shoulder; M25.532 Pain in left wrist